=== PATIENT | male | born 1940 | race Asian ===

== ENCOUNTER 2017-05-04 11:45 | Emergency (ER) | payer OTHER ==
[2017-05-04 12:21] VITALS: BMI 21.7
--- NOTE | 2017-05-04 13:53 | PDOC ---
History of Present Illness - History of Present Illness Initial Comments: 05/04/17 14:01 The patient is a 76 year old male, with a significant past medical history of HTN, HLD, Pacemaker (Jan 2017), who presents to the emergency department with subjective fever, cough, and intermittent wheezing since yesterday. Patient reports that he went into cardiac arrest during stent placement in Jan 2017 and was subsequently given a pacemaker. He states that he noticed he was wheezing a lot yesterday so he was using a steam inhaler. He also noted chills and a fever but did not take his temperature. He called his PCP who referred him to the ER due to his cardiac history. He denies any recent headache or dizziness. He denies any recent nausea, vomit, diarrhea or constipation. He denies any recent chest pain. He denies any recent dysuria, frequency, urgency or hematuria. Allergies: NKA Past surgical history: Quadruple bypass (1994), Pacemaker (Jan 2017) Social History: Nonsmoker. Denies EtOH use and recreational drug use. Primary Care Physician: Yuly Huntley <Leslie Treadwell - Last Filed: 05/04/17 14:22> - General History Source: Patient Exam Limitations: No Limitations <Sheila Mccall - Last Filed: 05/04/17 20:04> - General Chief Complaint: Respiratory Stated Complaint: wheezing Time Seen by Provider: 05/04/17 13:30 Past History <Leslie Treadwell - Last Filed: 05/04/17 14:22> - Past Medical History Cardiac Disorders: Yes (pacemaker, bypass) COPD: No HTN: Yes Hypercholesterolemia: Yes - Surgical History Cardiac Surgery: Yes (pacemaker, bypass) - Immunization History Td Vaccination: Yes Immunization Up to Date: Yes - Suicide/Smoking/Psychosocial Hx Smoking Status: No Smoking History: Never smoked Years of Tobacco Use: 0 Number of Cigarettes Smoked Daily: 0 Cigars Per Day: 0 <Sheila Mccall - Last Filed: 05/04/17 20:04> - Past Medical History Allergies/Adverse Reactions: Allergies Allergy/AdvReac Type Severity Reaction Status Date / Time No Known Allergies Allergy Verified 05/04/17 12:15 Home Medications: Ambulatory Orders Aspirin 162 mg PO DAILY 01/29/13 Metoprolol Succinate [Toprol XL -] 25 mg PO DAILY 11/03/13 Simvastatin [Zocor -] 20 mg PO HS 01/29/13 Cefuroxime Axetil [Ceftin -] 500 mg PO BID #10 tablet 05/04/17 Review of Systems - Review of Systems Comments:: 05/04/17 14:01 CONSTITUTIONAL: Presen: subjective fever, chills Absent: no fatigue EYES: Absent: visual changes ENT: Present: rhinorrhea Absent: ear pain, no sore throat CARDIOVASCULAR: Absent: chest pain, no palpitations RESPIRATORY: Present: recent cough, recent wheezing Absent: no SOB GI: Absent: abdominal pain, no nausea, no vomiting, no constipation, no diarrhea GENITOURINARY: Absent: dysuria, no frequency, no hematuria MUSCULOSKELETAL: Absent: back pain, no arthralgia, no myalgia SKIN: Absent: rash <Leslie Treadwell - Last Filed: 05/04/17 14:22> *Physical Exam - Vital Signs Last Vital Signs Temp Pulse Resp BP Pulse Ox 98.4 F 60 20 148/61 99 05/04/17 12:16 05/04/17 12:16 05/04/17 12:16 05/04/17 12:16 05/04/17 12:16 - Physical Exam Comments: 05/04/17 14:03 GENERAL: Well-appearing, well-nourished. No apparent distress. HEENT: Normocephalic, atraumatic. PERRL, EOM intact.Mild errythematous pharynx. CARDIOVASCULAR: Normal S1, S2. Regular rate and rhythm. PULMONARY: Clear to auscultation bilaterally. ABDOMEN: Soft, non-distended, non-tender. EXTREMITIES: Normal ROM in all four extremities. No gross deformities. SKIN: Warm, dry. No rash NEUROLOGICAL: No focal neurological deficits. <Leslie Treadwell - Last Filed: 05/04/17 14:22> - Vital Signs Last Vital Signs Temp Pulse Resp BP Pulse Ox 98.4 F 60 20 148/61 99 05/04/17 12:16 05/04/17 12:16 05/04/17 12:16 05/04/17 12:16 05/04/17 12:16 <Sheila Mccall - Last Filed: 05/04/17 20:04> Heart Score/ECG Review - ECG Intrepretation Comment:: 05/04/17 14:21 Atrial-paced rhythm with prolonged AV conduction. Minimal voltage criteria for LVH, may be normal variant. Cannot rule out inferior infarct Vent rate. 60 bpm <Leslie Treadwell - Last Filed: 05/04/17 14:22> ED Treatment Course - LABORATORY CBC & Chemistry Diagram: 05/04/17 14:23 05/04/17 14:23 <Sheila Mccall - Last Filed: 05/04/17 20:04> Medical Decision Making - Medical Decision Making 05/04/17 14:28 A/P: Patient here for evaluation of wheezing since yesterday. Because of patient 's cardiac history was sent by Dr. Diallo. Patient's physical examination is benign Dr. Huntley was requesting influenza to be sent, BNP, CBC, CMP, EKG and cardiac enzymes, if troponin and BNP are negative Call Dr. Sharif Discuss DC. Patient transferred to main emergency department for higher level of care report to Dr. Garcia and Ghazal RN. 05/04/17 20:04 A portion of this note was documented by the scribe services under my direction. I reviewed the details of the note within reason, and agree with the documentation with the following case summary and management plan written by me. <Sheila Mccall - Last Filed: 05/04/17 20:04> *DC/Admit/Observation/Transfer - Attestations Scribe Attestion: 05/04/17 14:12 Documentation prepared by Leslie Treadwell, acting as medical information specialist for Sheila Mccall FNP. <Leslie Treadwell - Last Filed: 05/04/17 14:22> <Sheila Mccall - Last Filed: 05/04/17 20:04> Diagnosis at time of Disposition: URI (upper respiratory infection) - Discharge Dispostion Disposition: HOME - Prescriptions Prescriptions: Cefuroxime Axetil [Ceftin -] 500 mg PO BID #10 tablet - Referrals Referrals: Yuly Huntley MD [Primary Care Provider] - - Patient Instructions Printed Discharge Instructions: DI for Acute Bronchitis Additional Instructions: Take the antibiotics as prescribed. Follow up with Dr. Huntley within 48 hours for a re-evaluation. If you experience worsening cough, shortness of breath, chest pain, or any other concerning symptoms, return to the ER immediately. - Post Discharge Activity
[2017-05-04 14:37] LABS: BASO % 0.9 % (0-2.0); HEMATOCRIT 40.1 % (35.4-49); LYMPH % 34.2 % (8-40); MCH 29.6 pg (25.7-33.7); MCHC 32.4 g/dl (32.0-35.9); MEAN CELL VOLUME 91.6 fl (80-96); MEAN PLT VOLUME 11.2 fl (7.5-11.1); MONO % 10.8 % (3.8-10.2); NEUT % 52.1 % (42.8-82.8); PLATELET COUNT 130 K/MM3 (134-434); RBC 4.37 M/mm3 (4.00-5.60); RDW 13.8 % (11.9-15.9); WHITE BLOOD COUNT 5.5 K/mm3 (4.0-10.0)
[2017-05-04 15:06] LABS: ALBUMIN 4.2 g/dl (3.4-5.0); ANION GAP 10 (8-16); BILIRUBIN,TOTAL 0.5 mg/dL (0.2-1.0); BLOOD UREA NITROGEN 9 mg/dL (7-18); CALCIUM 9.4 mg/dL (8.5-10.1); CHLORIDE 98 mmol/L (98-107); CO2 26 mmol/L (21-32); CREATININE 0.7 mg/dL (0.7-1.3); GLUCOSE,RANDOM 92 mg/dL (74-106); SGPT/ALT 36 U/L (12-78); SODIUM 134 mmol/L (136-145); TOT PROT 8.4 g/dl (6.4-8.2)
[2017-05-04 15:07] LABS: ALK PHOS 72 U/L (45-117)
[2017-05-04 15:08] LABS: POTASSIUM 4.9 mmol/L (3.5-5.1); SGOT/AST 50 U/L (15-37)
[2017-05-04 16:06] LABS: N-TERMINAL BNP 167.77 pg/ml (5-450)
--- NOTE | 2017-05-04 16:29 | PDOC ---
*Physical Exam - Vital Signs Last Vital Signs Temp Pulse Resp BP Pulse Ox 98.4 F 60 20 148/61 99 05/04/17 12:16 05/04/17 12:16 05/04/17 12:16 05/04/17 12:16 05/04/17 12:16 - Physical Exam Comments: 05/04/17 16:29 "GENERAL: Awake, alert, and fully oriented, in no acute distress HEAD: No signs of trauma EYES: PERRLA, EOMI, sclera anicteric, conjunctiva clear ENT: Auricles normal inspection, hearing grossly normal, nares patent, oropharynx clear without exudates. Moist mucosa NECK: Nontender, no stepoffs, Normal ROM, supple, no lymphadenopathy, JVD, or masses LUNGS: Breath sounds equal, clear to auscultation bilaterally. No wheezes, and no crackles HEART: Regular rate and rhythm, normal S1 and S2, no murmurs, rubs or gallops ABDOMEN: Soft, nontender, normoactive bowel sounds. No guarding, no rebound. No masses EXTREMITIES: Normal range of motion, no edema. No clubbing or cyanosis. No cords, erythema, or tenderness NEUROLOGICAL: Cranial nerves II through XII intact. 5/5 strength and sensation in all extremities, Normal speech, normal gait SKIN: Warm, Dry, normal turgor, no rashes or lesions noted. " ED Treatment Course - LABORATORY CBC & Chemistry Diagram: 05/04/17 14:23 05/04/17 14:23 - ADDITIONAL ORDERS Additional order review: Laboratory Results 05/04/17 14:23 Sodium 134 L Potassium 4.9 D Chloride 98 Carbon Dioxide 26 Anion Gap 10 BUN 9 D Creatinine 0.7 Creat Clearance w eGFR > 60 Random Glucose 92 D Calcium 9.4 Total Bilirubin 0.5 D AST 50 H D ALT 36 Alkaline Phosphatase 72 D Total Protein 8.4 H Albumin 4.2 05/04/17 14:18 Influenza Types A,B Antigen ([facility]) - Final Nasopharyngeal Swab - Final 05/04/17 14:23 RBC 4.37 MCV 91.6 MCHC 32.4 RDW 13.8 MPV 11.2 H Neutrophils % 52.1 Lymphocytes % 34.2 Monocytes % 10.8 H D Eosinophils % 2.0 D Basophils % 0.9 Medical Decision Making - Medical Decision Making 02/06/18 16:29 76 M with cough, sent in by PCP for cardiac enzymes, flu swab, and CXR. - Labs wnl - Flu swab negative - CXR negative Troponin result still pending after >2 hours of being in lab. At this time, I called the outside laborer who confirmed that troponin is negative. Spoke with Dr. Huntley, who agrees with plan to discharge with course of ceftin. Will f/u with pt in office. Pt reassessed - states that he feels well. Lungs clear. Vitals normal. Pt clinically stable for DC. *DC/Admit/Observation/Transfer Diagnosis at time of Disposition: URI (upper respiratory infection) - Discharge Dispostion Disposition: HOME - Prescriptions Prescriptions: Cefuroxime Axetil [Ceftin -] 500 mg PO BID #10 tablet - Referrals Referrals: Yuly Huntley MD [Primary Care Provider] - - Patient Instructions Printed Discharge Instructions: DI for Acute Bronchitis Additional Instructions: Take the antibiotics as prescribed. Follow up with Dr. Huntley within 48 hours for a re-evaluation. If you experience worsening cough, shortness of breath, chest pain, or any other concerning symptoms, return to the ER immediately. - Post Discharge Activity - Attestations Physician Attestion: 05/04/17 16:33 I, Dr. Andrew Garcia MD, attest that this document has been prepared under my direction and personally reviewed by me in its entirety. I further attest, that it accurately reflects all work, treatment, procedures and medical decision -making performed by me.
[2017-05-04] MEDS ORDERED: CEFUROXIME AXETIL 500 MG TABLET PO ONE (16:35)
[2017-05-04 16:54] VITALS: BP 130/80; PULSE 82; TEMP 98.3
--- NOTE | 2017-05-04 17:32 | EKG ---
Test Reason : Blood Pressure : / mmHG Vent. Rate : 060 BPM Atrial Rate : 060 BPM P-R Int : 000 ms QRS Dur : 094 ms QT Int : 384 ms P-R-T Axes : 000 065 -60 degrees QTc Int : 384 ms Atrial-paced rhythm with prolonged AV conduction MINIMAL VOLTAGE CRITERIA FOR LVH, MAY BE NORMAL VARIANT CANNOT RULE OUT INFERIOR INFARCT , AGE UNDETERMINED ABNORMAL ECG WHEN COMPARED WITH ECG OF 29-JAN-2013 04:47, ELECTRONIC ATRIAL PACEMAKER HAS REPLACED SINUS RHYTHM T WAVE INVERSION NOW EVIDENT IN INFERIOR LEADS NONSPECIFIC T WAVE ABNORMALITY NOW EVIDENT IN LATERAL LEADS QT HAS SHORTENED Confirmed by Chele Benitez ([id number]) on 05/04/2017 5:32:31 PM Referred By: Confirmed By:Chele Benitez
== END 2017-05-04 16:54 | disposition home or self-care (01) ==
LOC: JER 11:45 → JERFT 11:45 → JER 16:54
DX: J06.9 Acute upper respiratory infection, unspecified (principal); I25.10 Atherosclerotic heart disease of native coronary artery without angina pectoris; I10 Essential (primary) hypertension; Z95.1 Presence of aortocoronary bypass graft; Z95.0 Presence of cardiac pacemaker; E78.00 Pure hypercholesterolemia, unspecified; Z86.74 Personal history of sudden cardiac arrest
CPT/HCPCS: 36415; 71046-TC-FY; 80053; 82550; 82553; 83880; 84484; 85025; 87804; 93005; 93010; 99283-25

== ENCOUNTER 2017-07-07 16:32 | Emergency (ER) | payer OTHER ==
[2017-07-07 17:03] VITALS: BP 141/61; PULSE 60; TEMP 98.3; BMI 21.7
--- NOTE | 2017-07-07 17:04 | PDOC ---
Rapid Medical Evaluation Chief Complaint: Shortness of Breath Time Seen by Provider: 07/07/17 16:58 Medical Evaluation: Allergies Allergy/AdvReac Type Severity Reaction Status Date / Time No Known Allergies Allergy Verified 07/07/17 16:57 07/07/17 16:58 I have performed a brief in-person evaluation of this patient. The patient presents with a chief complaint of: intermittent x "weeks" - chills , wheezing, SOB, some swelling of feet, had pacer PCP Audi, had labs done 2 days ago, low platelets, elevated ESR Pertinent physical exam findings: lungs ctab I have ordered the following: labs, ekg, cxr The patient will proceed to the ED for further evaluation. Discharge Disposition - Diagnosis SOB (shortness of breath) - Referrals - Patient Instructions - Post Discharge Activity
[2017-07-07 17:52] LABS: BASO % 0.7 % (0-2.0); EOS % 7.9 % (0-4.5); HEMATOCRIT 31.3 % (35.4-49); HEMOGLOBIN 10.6 GM/dL (11.7-16.9); LYMPH % 19.4 % (8-40); MCH 30.9 pg (25.7-33.7); MCHC 33.8 g/dl (32.0-35.9); MEAN CELL VOLUME 91.5 fl (80-96); MEAN PLT VOLUME 10.2 fl (7.5-11.1); MONO % 10.3 % (3.8-10.2); NEUT % 61.7 % (42.8-82.8); PLATELET COUNT 90 K/MM3 (134-434); RBC 3.42 M/mm3 (4.00-5.60); RDW 14.4 % (11.9-15.9); WHITE BLOOD COUNT 4.5 K/mm3 (4.0-10.0)
[2017-07-07 18:36] LABS: ALBUMIN 3.5 g/dl (3.4-5.0); ANION GAP 6 (8-16); BILIRUBIN,TOTAL 0.4 mg/dL (0.2-1.0); BLOOD UREA NITROGEN 8 mg/dL (7-18); CALCIUM 8.7 mg/dL (8.5-10.1); CHLORIDE 99 mmol/L (98-107); CO2 29 mmol/L (21-32); CREATININE 0.8 mg/dL (0.7-1.3); GLUCOSE,RANDOM 131 mg/dL (74-106); POTASSIUM 4.1 mmol/L (3.5-5.1); SGOT/AST 16 U/L (15-37); SGPT/ALT 29 U/L (12-78); SODIUM 134 mmol/L (136-145); TOT PROT 7.2 g/dl (6.4-8.2)
[2017-07-07 18:38] LABS: ALK PHOS 51 U/L (45-117)
--- NOTE | 2017-07-07 19:38 | PDOC ---
History of Present Illness - General History Source: Patient Exam Limitations: No Limitations - History of Present Illness Initial Comments: 07/07/17 19:48 The patient is a 76 year old male with a significant PMH of pacemaker (01/2017) , coronary bypass, HTN, hyperlipidemia who presents to the emergency department with shortness of breath and extremity swelling over the past several weeks. The patient report having several unspecified weeks of intermittent shortness of breath, dyspnea on exertion, and chills since he had his pacemaker placed. The patient denies fevers. The patient also reports his feet bilaterally and his right hand have been swollen over the past week. The patients family also notes they went to Dr. Hannon office 2 days ago for bloodwork for concern of the side effects of his Colchicine use for gout, and state Dr. Huntley noted low platelets at 77. The patient denies bleeding or bruising. The patient denies chest pain, headache and dizziness. Denies fever, nausea, vomit, diarrhea and constipation. Denies dysuria, frequency, urgency and hematuria. Allergies: NKA Past surgical history: Pacemaker placement (2016). Coronary bypass (1996). Social history: No reported cigarette, alcohol, or drug use. PCP: Dr. Huntley <Steven Wall - Last Filed: 07/07/17 19:48> - General History Source: Patient <BooRy - Last Filed: 07/28/17 19:35> - General Chief Complaint: Shortness of Breath Stated Complaint: RESPIRATORY Time Seen by Provider: 07/07/17 16:58 Past History <Steven Wall - Last Filed: 07/07/17 19:48> - Past Medical History Cardiac Disorders: Yes (pacemaker 02/05/2017, bypass) COPD: No HTN: Yes Hypercholesterolemia: Yes - Surgical History Cardiac Surgery: Yes (pacemaker, bypass 1996) - Immunization History Td Vaccination: Yes Immunization Up to Date: Yes - Suicide/Smoking/Psychosocial Hx Smoking Status: No Smoking History: Never smoked Years of Tobacco Use: 0 Have you smoked in the past 12 months: No Number of Cigarettes Smoked Daily: 0 Cigars Per Day: 0 Information on smoking cessation initiated: No Hx Alcohol Use: No Drug/Substance Use Hx: No Substance Use Type: None <Ry Haddad - Last Filed: 07/28/17 19:35> - Past Medical History Allergies/Adverse Reactions: Allergies Allergy/AdvReac Type Severity Reaction Status Date / Time No Known Allergies Allergy Verified 07/07/17 16:57 Home Medications: Ambulatory Orders Aspirin 162 mg PO DAILY 01/29/13 Metoprolol Succinate [Toprol XL -] 25 mg PO DAILY 01/29/13 Simvastatin [Zocor -] 20 mg PO HS 01/29/13 Cefuroxime Axetil [Ceftin -] 500 mg PO BID #10 tablet 05/04/17 Furosemide [Lasix] 20 mg PO DAILY #10 tablet 07/07/17 Review of Systems - Review of Systems Able to Perform ROS?: Yes Comments:: 07/07/17 19:48 CONSTITUTIONAL: (+) Chills. Absent: fever, diaphoresis, generalized weakness, malaise, loss of appetite HEENT: Absent: rhinorrhea, nasal congestion, throat pain, throat swelling, difficulty swallowing, mouth swelling, ear pain, eye pain, visual Changes CARDIOVASCULAR: Absent: chest pain, syncope, palpitations, irregular heart rate, lightheadedness , peripheral edema RESPIRATORY: (+) Shortness of breath. (+) Dyspnea on exertion. Absent: cough, orthopnea, wheezing, stridor, hemoptysis GASTROINTESTINAL: Absent: abdominal pain, abdominal distension, nausea, vomiting, diarrhea, constipation, melena, hematochezia GENITOURINARY: Absent: dysuria, frequency, urgency, hesitancy, hematuria, flank pain, genital pain MUSCULOSKELETAL: (+) Bilateral foot swelling. (+) Right hand swelling. Absent: myalgia, arthralgia. SKIN: Absent: rash, itching, pallor HEMATOLOGIC/IMMUNOLOGIC: Absent: easy bleeding, easy bruising, lymphadenopathy, frequent infections ENDOCRINE: Absent: unexplained weight gain, unexplained weight loss, heat intolerance, cold intolerance NEUROLOGIC: Absent: headache, focal weakness or paresthesias, dizziness, unsteady gait, seizure, mental status changes, bladder or bowel incontinence PSYCHIATRIC: Absent: anxiety, depression, suicidal or homicidal ideation, hallucinations. <Steven Wall - Last Filed: 07/07/17 19:48> *Physical Exam - Vital Signs Last Vital Signs Temp Pulse Resp BP Pulse Ox 98.3 F 60 16 141/61 100 07/07/17 17:00 07/07/17 17:00 07/07/17 17:00 07/07/17 17:00 07/07/17 17:00 - Physical Exam Comments: 07/07/17 19:49 GENERAL: Well developed, well nourished. Awake and alert. No acute distress. HEENT: Normocephalic, atraumatic. PERRLA, EOMI. No conjunctival pallor. Sclera are non- icteric. Moist mucous membranes. Oropharynx is clear. NECK: Supple. Full ROM. No JVD. Carotid pulses 2+ and symmetric, without bruits. No thyromegaly. No lymphadenopathy. CARDIOVASCULAR: Regular rate and rhythm. No murmurs, rubs, or gallops. Distal pulses are 2+ and symmetric. PULMONARY: No evidence of respiratory distress. Lungs clear to auscultation bilaterally. No wheezing, rales or rhonchi. ABDOMINAL: Soft. Non-tender. Non-distended. No rebound or guarding. No organomegaly. Normoactive bowel sounds. MUSCULOSKELETAL Normal range of motion at all joints. No bony deformities or tenderness. No CVA tenderness. EXTREMITIES: No cyanosis. No clubbing. No edema. No calf tenderness. SKIN: Warm and dry. Normal capillary refill. No rashes. No jaundice. NEUROLOGICAL: Alert, awake, appropriate. Cranial nerves 2-12 intact. No deficits to light touch and temperature in face, upper extremities and lower extremities. No motor deficits in the in face, upper extremities and lower extremities. Normoreflexic in the upper and lower extremities. Normal speech. Toes are downgoing bilaterally. Gait is normal without ataxia. PSYCHIATRIC: Cooperative. Good eye contact. Appropriate mood and affect. <Steven Wall - Last Filed: 07/07/17 19:48> - Vital Signs Last Vital Signs Temp Pulse Resp BP Pulse Ox 98.3 F 60 16 141/61 100 07/07/17 17:00 07/07/17 17:00 07/07/17 17:00 07/07/17 17:00 07/07/17 17:00 <Ry Haddad - Last Filed: 07/28/17 19:35> ED Treatment Course - LABORATORY CBC & Chemistry Diagram: 07/07/17 17:43 07/07/17 17:43 - ADDITIONAL ORDERS Additional order review: Laboratory Results 07/07/17 17:43 Sodium 134 L Potassium 4.1 Chloride 99 Carbon Dioxide 29 Anion Gap 6 L BUN 8 Creatinine 0.8 Creat Clearance w eGFR > 60 Random Glucose 131 H D Calcium 8.7 Total Bilirubin 0.4 AST 16 D ALT 29 Alkaline Phosphatase 51 D Creatine Kinase 81 Troponin I < 0.02 B-Natriuretic Peptide 1212.70 H Total Protein 7.2 Albumin 3.5 07/07/17 17:43 RBC 3.42 L D MCV 91.5 MCHC 33.8 RDW 14.4 MPV 10.2 Neutrophils % 61.7 Lymphocytes % 19.4 D Monocytes % 10.3 H Eosinophils % 7.9 H D Basophils % 0.7 <Steven Wall - Last Filed: 07/07/17 19:48> - LABORATORY CBC & Chemistry Diagram: 07/07/17 17:43 07/07/17 17:43 - ADDITIONAL ORDERS Additional order review: Laboratory Results 07/07/17 17:43 Sodium 134 L Potassium 4.1 Chloride 99 Carbon Dioxide 29 Anion Gap 6 L BUN 8 Creatinine 0.8 Creat Clearance w eGFR > 60 Random Glucose 131 H D Calcium 8.7 Total Bilirubin 0.4 AST 16 D ALT 29 Alkaline Phosphatase 51 D Creatine Kinase 81 Troponin I < 0.02 B-Natriuretic Peptide 1212.70 H Total Protein 7.2 Albumin 3.5 07/07/17 17:43 RBC 3.42 L D MCV 91.5 MCHC 33.8 RDW 14.4 MPV 10.2 Neutrophils % 61.7 Lymphocytes % 19.4 D Monocytes % 10.3 H Eosinophils % 7.9 H D Basophils % 0.7 <Ry Haddad - Last Filed: 07/28/17 19:35> Medical Decision Making - Medical Decision Making 07/28/17 19:35 Dr. Haddad: The scribe's documentation has been prepared under my direction and personally reviewed by me in its entirery. I confirm that the note above accurately reflects all work, treatment, procedures, and medical decision making performed by me. <Ry Haddad - Last Filed: 07/28/17 19:35> *DC/Admit/Observation/Transfer - Attestations Scribe Attestion: 07/07/17 19:49 Documentation prepared by Steven Wall, acting as medical doctor nuclear medicine for Ry Haddad DO. <Steven Wall - Last Filed: 07/07/17 19:48> - Discharge Dispostion Admit: No <Ry Haddad - Last Filed: 07/28/17 19:35> Diagnosis at time of Disposition: SOB (shortness of breath) CHF (congestive heart failure) Qualifiers: Heart failure type: other Qualified Code(s): I50.9 - Heart failure, unspecified - Discharge Dispostion Disposition: HOME Condition at time of disposition: Stable - Prescriptions Prescriptions: Furosemide [Lasix] 20 mg PO DAILY #10 tablet - Referrals Referrals: Yuly Huntley MD [Primary Care Provider] - - Patient Instructions Printed Discharge Instructions: DI for Heart Failure, Lifestyle Habits May Lower Lifetime Risk of Heart Failure in Men Additional Instructions: continue all medications as directed. Continue all medication until you see Dr. 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 Return if any problems - Post Discharge Activity
[2017-07-07] MEDS ORDERED: FUROSEMIDE 20 MG TABLET (FP) PO ONE (19:49)
[2017-07-07] MEDS ORDERED: FUROSEMIDE 40 MG TABLET (FP) ONE (19:58)
--- NOTE | 2017-07-08 15:55 | EKG ---
Test Reason : Blood Pressure : / mmHG Vent. Rate : 060 BPM Atrial Rate : 060 BPM P-R Int : 000 ms QRS Dur : 096 ms QT Int : 414 ms P-R-T Axes : 021 069 013 degrees QTc Int : 414 ms Atrial-paced rhythm with prolonged AV conduction ABNORMAL ECG WHEN COMPARED WITH ECG OF 04-MAY-2017 11:55, T WAVE INVERSION NO LONGER EVIDENT IN INFERIOR LEADS NONSPECIFIC T WAVE ABNORMALITY NO LONGER EVIDENT IN LATERAL LEADS Confirmed by NITISH BAUMAN MD ([id number]) on 07/08/2017 3:55:28 PM Referred By: Confirmed By:NITISH BAUMAN MD
--- NOTE | 2017-07-12 17:04 | EKG ---
Test Reason : Blood Pressure : / mmHG Vent. Rate : 060 BPM Atrial Rate : 060 BPM P-R Int : 274 ms QRS Dur : 100 ms QT Int : 414 ms P-R-T Axes : -03 063 035 degrees QTc Int : 414 ms Atrial-paced rhythm with prolonged AV conduction ABNORMAL ECG WHEN COMPARED WITH ECG OF 07-JUL-2017 17:03, NO SIGNIFICANT CHANGE WAS FOUND Confirmed by JAYDA IBARRA MD ([id number]) on 07/12/2017 5:03:41 PM Referred By: Confirmed By:JAYDA IBARRA MD
== END 2017-07-07 20:02 | disposition home or self-care (01) ==
LOC: JER 16:32
DX: R06.02 Shortness of breath (principal); I50.9 Heart failure, unspecified
CPT/HCPCS: 36415; 71046-TC-FY; 80053; 82550; 83880; 84484; 85025; 93005; 93010; 99281-25

== ENCOUNTER 2018-04-05 04:05 | Emergency (ER) | payer OTHER ==
--- NOTE | 2018-04-05 04:28 | PDOC ---
History of Present Illness - General Chief Complaint: Syncope/Near Syncope Stated Complaint: NEAR SYNCOPE Time Seen by Provider: 04/05/18 04:27 - History of Present Illness Initial Comments: 04/05/18 04:27 Mr. Ribeiro is a 77 yo male w/ pmh of pacemaker (01/2017 after cardiac arrest during procedure), coronary bypass, HTN, HLD, preDM who presents for evaluation of dizziness earlier this evening. Patient reports he woke up to use the restroom and became dizzy as he was standing urinating. Patient describes this as a lightheaded feeling. Patient then sat down and his family called 911. Symptoms have now resolved and patient feels like his normal self. Of note, Mr. Ribeiro also endorses a 2 day history of loose stool. The patient denies chest pain, shortness of breath, and headache. Denies fever, chills, nausea, vomit, and constipation. Denies dysuria, frequency, urgency and hematuria. Past History - Past Medical History Allergies/Adverse Reactions: Allergies Allergy/AdvReac Type Severity Reaction Status Date / Time No Known Allergies Allergy Verified 04/05/18 04:27 Home Medications: Ambulatory Orders Aspirin 81 mg PO DAILY 01/29/13 Metoprolol Succinate [Toprol XL -] 25 mg PO DAILY 01/29/13 Simvastatin [Zocor -] 20 mg PO HS 01/29/13 Furosemide [Lasix] 20 mg PO DAILY #10 tablet 07/07/17 Allopurinol [Zyloprim -] 100 mg PO DAILY 04/05/18 Levothyroxine [Synthroid -] 20 mcg PO DAILY 04/05/18 Losartan Potassium [Cozaar -] 50 mg PO DAILY 04/05/18 Cardiac Disorders: Yes (pacemaker 02/05/2017, bypass) COPD: No HTN: Yes Hypercholesterolemia: Yes - Surgical History Cardiac Surgery: Yes (pacemaker, bypass 1996) - Immunization History Td Vaccination: Yes Immunization Up to Date: Yes - Suicide/Smoking/Psychosocial Hx Smoking Status: No Smoking History: Never smoked Years of Tobacco Use: 0 Have you smoked in the past 12 months: No Number of Cigarettes Smoked Daily: 0 Cigars Per Day: 0 Hx Alcohol Use: No Drug/Substance Use Hx: No Substance Use Type: None Review of Systems - Review of Systems Comments:: 04/05/18 04:28 GENERAL/CONSTITUTIONAL: No fever or chills. No weakness. HEAD, EYES, EARS, NOSE AND THROAT: No change in vision. No ear pain or discharge. No sore throat. CARDIOVASCULAR: No chest pain or shortness of breath RESPIRATORY: No cough, wheezing, or hemoptysis. GASTROINTESTINAL: +Diarrhea as described. No nausea, vomiting, or constipation. GENITOURINARY: No dysuria, frequency, or change in urination. MUSCULOSKELETAL: No joint or muscle swelling or pain. No neck or back pain. SKIN: No rash NEUROLOGIC: +Lightheaded feeling earlier this evening as described. No headache , vertigo, loss of consciousness, or change in strength/sensation. ENDOCRINE: No increased thirst. No abnormal weight change HEMATOLOGIC/LYMPHATIC: No anemia, easy bleeding, or history of blood clots. ALLERGIC/IMMUNOLOGIC: No hives or skin allergy. *Physical Exam - Physical Exam Comments: 04/05/18 04:28 GENERAL: Awake, alert, and fully oriented, in no acute distress HEAD: No signs of trauma, normocephalic, atraumatic EYES: PERRLA, EOMI, sclera anicteric, conjunctiva clear ENT: Auricles normal inspection, hearing grossly normal, nares patent, oropharynx clear without exudates. Moist mucosa NECK: Normal ROM, supple, no lymphadenopathy, JVD, or masses LUNGS: No distress, speaks full sentences, clear to auscultation bilaterally HEART: Regular rate and rhythm, normal S1 and S2, no murmurs, rubs or gallops, peripheral pulses normal and equal bilaterally. ABDOMEN: Soft, nontender, normoactive bowel sounds. No guarding, no rebound. No masses EXTREMITIES: Normal inspection, Normal range of motion, no edema. No clubbing or cyanosis. NEUROLOGICAL: Cranial nerves II through XII grossly intact. Normal speech, normal gait, no focal sensorimotor deficits SKIN: Warm, Dry, normal turgor, no rashes or lesions noted. ED Treatment Course - LABORATORY CBC & Chemistry Diagram: 04/05/18 04:30 04/05/18 04:30 Medical Decision Making - Medical Decision Making 04/05/18 04:45 Mr. Ribeiro is a 77 yo male w/ pmh as described who presents for evaluation of dizziness suspicious for cardiac process vs. orthostatic hypotension vs. electrolyte abnormality. Will evaluate patient using cardiac labs, cbc/cmp, and EKG. 04/05/18 06:20 Labs grossly wnl as below. EKG normal. Patient currently pending repeat troponin at 0730. Concern for acute process low at this time. 04/05/18 06:[address] Calderon. [phone]. Patient signed out to Dr. Garcia for further evaluation. Laboratory Results - last 24 hr 04/05/18 04/05/18 04/05/18 04:30 04:30 04:30 WBC 5.3 RBC 4.02 Hgb 12.7 Hct 37.3 D MCV 92.7 MCH 31.6 MCHC 34.1 RDW 13.1 Plt Count 101 L MPV 11.4 H D Absolute Neuts (auto) 3.5 Neutrophils % 66.1 Lymphocytes % 23.8 D Monocytes % 6.8 Eosinophils % 2.1 Basophils % 1.2 Nucleated RBC % 0 Sodium 138 Potassium 3.9 Chloride 104 Carbon Dioxide 27 Anion Gap 6 L BUN 14 Creatinine 0.9 Creat Clearance w eGFR > 60 Random Glucose 143 H Calcium 8.5 Total Bilirubin 0.3 AST 26 ALT 26 Alkaline Phosphatase 50 Creatine Kinase 140 Cancelled Troponin I < 0.02 Cancelled Total Protein 7.1 Albumin 3.6 *DC/Admit/Observation/Transfer Diagnosis at time of Disposition: Dizziness - Discharge Dispostion Condition at time of disposition: Fair - Referrals Referrals: Tana Corona MD [Primary Care Provider] - - Patient Instructions Printed Discharge Instructions: DI for Syncope in Adults (Fainting) Additional Instructions: You were evaluated today in the ER for your dizziness. We evaluated you with EKG , Chest Xray, and cardiac labs. No concerning findings were found at this time. Please follow-up with primary care provider later this week for further evaluation. Return to ER if any further symptoms of dizziness, fever, chills, or other concerning symptoms. - Post Discharge Activity
[2018-04-05] MEDS ORDERED: SODIUM CHLORIDE 500 ML IV STA (04:36)
[2018-04-05 04:41] VITALS: PULSE 60; BMI 22.6
[2018-04-05 04:57] LABS: BASO % 1.2 % (0-2.0); EOS % 2.1 % (0-4.5); HEMATOCRIT 37.3 % (35.4-49); HEMOGLOBIN 12.7 GM/dL (11.7-16.9); LYMPH % 23.8 % (8-40); MCH 31.6 pg (25.7-33.7); MCHC 34.1 g/dl (32.0-35.9); MEAN CELL VOLUME 92.7 fl (80-96); MEAN PLT VOLUME 11.4 fl (7.5-11.1); MONO % 6.8 % (3.8-10.2); NEUT % 66.1 % (42.8-82.8); PLATELET COUNT 101 K/MM3 (134-434); RBC 4.02 M/mm3 (4.00-5.60); RDW 13.1 % (11.9-15.9); WHITE BLOOD COUNT 5.3 K/mm3 (4.0-10.0)
[2018-04-05 05:40] LABS: ALBUMIN 3.6 g/dl (3.4-5.0); ALK PHOS 50 U/L (45-117); ANION GAP 6 MMOL/L (8-16); BILIRUBIN,TOTAL 0.3 mg/dL (0.2-1); BLOOD UREA NITROGEN 14 mg/dL (7-18); CALCIUM 8.5 mg/dL (8.5-10.1); CHLORIDE 104 mmol/L (98-107); CO2 27 mmol/L (21-32); CREATININE 0.9 mg/dL (0.55-1.3); GLUCOSE,RANDOM 143 mg/dL (74-106); POTASSIUM 3.9 mmol/L (3.5-5.1); SGOT/AST 26 U/L (15-37); SGPT/ALT 26 U/L (13-61); SODIUM 138 mmol/L (136-145); TOT PROT 7.1 g/dl (6.4-8.2)
--- NOTE | 2018-04-05 06:58 | PDOC ---
*Physical Exam - Vital Signs Last Vital Signs Temp Pulse Resp BP Pulse Ox 98.1 F 60 18 145/84 98 04/05/18 04:05 04/05/18 04:05 04/05/18 04:05 04/05/18 04:05 04/05/18 04:05 - Physical Exam Comments: 04/05/18 08:05 General Appearance: Nourished. No Apparent Distress HEENT: No Pharyngeal Erythema, Tonsillar Exudate, Tonsillar Erythema Neck: No Cervical Lymphadenopathy Respiratory/Chest: Lungs Clear, Normal Breath Sounds. No Crackles, Rales, Rhonchi, Wheezing Cardiovascular: Regular Rhythm, Regular Rate. No Murmur, Gallops, Rubs Gastrointestinal/Abdominal: Normal Bowel Sounds, Soft. No Guarding, Rebound, Tenderness Musculoskeletal: No CVA Tenderness Extremity: Normal Capillary Refill Integumentary: Normal Color, Dry, Warm Neurologic: Fully Oriented, Alert, Normal Mood/Affect, Normal Response, ED Treatment Course - LABORATORY CBC & Chemistry Diagram: 04/05/18 04:30 04/05/18 04:30 - ADDITIONAL ORDERS Additional order review: Laboratory Results 04/05/18 04/05/18 04:30 04:30 Sodium 138 Potassium 3.9 Chloride 104 Carbon Dioxide 27 Anion Gap 6 L BUN 14 Creatinine 0.9 Creat Clearance w eGFR > 60 Random Glucose 143 H Calcium 8.5 Total Bilirubin 0.3 AST 26 ALT 26 Alkaline Phosphatase 50 Creatine Kinase Cancelled 140 Troponin I Cancelled < 0.02 Total Protein 7.1 Albumin 3.6 04/05/18 04:30 RBC 4.02 MCV 92.7 MCHC 34.1 RDW 13.1 MPV 11.4 H D Neutrophils % 66.1 Lymphocytes % 23.8 D Monocytes % 6.8 Eosinophils % 2.1 Basophils % 1.2 - Medications Given in the ED: ED Medications Discontinued Medications Generic Name Dose Route Start Last Admin Trade Name Freq PRN Reason Stop Dose Admin Sodium Chloride 500 mls @ 1,000 mls/hr 04/05/18 04:36 04/05/18 04:52 Normal Saline - IV 04/05/18 05:05 1,000 mls/hr ASDIR STA Administration Progress Note - Progress Note Progress Note: The patient is a 77 year old male who presents to the ED for evaluation following a pre-syncopal episode. The patient's lab results have been unremarkable thus far including initial troponin. The patient is pending a repeat troponin and discussion with the patient's certified alcohol counselor. Medical Decision Making - Medical Decision Making 04/05/18 10:26 We discussed the case with the patient's Clinical Research Technician who is agreeable with the plan and will follow up with the patient on 04/08/18 at 3:40pm. Second troponin us unremarkable. We are comfortable discharging the patient home with cardiology follow up. We discussed the results, plan, and return precautions with the patient who voiced understanding and is agreeable with the plan. *DC/Admit/Observation/Transfer Diagnosis at time of Disposition: Dizziness - Discharge Dispostion Disposition: HOME Condition at time of disposition: Stable - Referrals Referrals: Tana Corona MD [Primary Care Provider] - - Patient Instructions Printed Discharge Instructions: DI for Syncope in Adults (Fainting) Additional Instructions: You were evaluated today in the ER for your dizziness. We evaluated you with EKG , Chest Xray, and cardiac labs. No concerning findings were found at this time. Please follow-up with primary care provider later this week for further evaluation. Return to ER if any further symptoms of dizziness, fever, chills, or other concerning symptoms. You are to follow up with your Clinical Research Technician Dr. Calderon this Wednesday04/08/18 at 3 :40pm. - Post Discharge Activity
--- NOTE | 2018-04-05 06:58 | PDOC ---
Attending Attestation - Resident Resident Name: Michael Galvez - ED Attending Attestation I have performed the following: I have examined & evaluated the patient, The case was reviewed & discussed with the resident, I agree w/resident's findings & plan, Exceptions are as noted - HPI HPI: 04/05/18 06:54 77 M with h/o pacemaker (01/2017), coronary bypass, HTN, hyperlipidemia, presenting to ED with transient lightheadedness. Pt states that he woke up to urinate this morning. WHile he was urinating, pt began to feel lightheaded. He denies syncope. Denies CP/SOB/palpitations. Pt was assisted to bed by his and lied down with his legs elevated with subsequent return to baseline. Pt is now asymptomatic. PT denies recent illness. Denies F/C. Denies vomiting/ diarrhea. Pt states that he has not had much of an appetite but has been taking PO fluids. Pt currently states that he feels well, with no complaints. - Physicial Exam PE: 04/05/18 06:58 "GENERAL: Awake, alert, and fully oriented, in no acute distress. HEAD: No signs of trauma EYES: PERRLA, EOMI, sclera anicteric, conjunctiva clear ENT: Auricles normal inspection, hearing grossly normal, nares patent, oropharynx clear without exudates. Moist mucosa NECK: Nontender, no stepoffs, Normal ROM, supple, no lymphadenopathy, JVD, or masses LUNGS: Breath sounds equal, clear to auscultation bilaterally. No wheezes, and no crackles HEART: Regular rate and rhythm, normal S1 and S2, no murmurs, rubs or gallops ABDOMEN: Soft, nontender, normoactive bowel sounds. No guarding, no rebound. No masses EXTREMITIES: Normal range of motion, no edema. No clubbing or cyanosis. No cords, erythema, or tenderness NEUROLOGICAL: Cranial nerves II through XII intact. 5/5 strength and sensation in all extremities, Normal speech, normal gait, normal cerebellar function SKIN: Warm, Dry, normal turgor, no rashes or lesions noted. - Medical Decision Making 04/05/18 06:58 77 M with lightheadedness during urination, now resolved. Pt well appearing, HD stable, with unremarkable EKG. No evidence of arrhythmia. Pt likely had micturition pre-syncope that resolved with lying down. Will evaluate for ACS with serial trops. Clinically does not appear dehydrated but will give gentle IVF. - Labs, trop x2 - CXR, UA - IVF 04/05/18 07:00 Labs wnl CXR clear UA pending. Pt signed out to oncoming team, pending repeat troponin, UA, and re-evaluation. Phone number of pt's enrichment teacher in chart. Day team to discuss pt's disposition with him.
[2018-04-05 09:01] VITALS: BP 135/70; TEMP 97.4
--- NOTE | 2018-04-05 10:00 | EKG ---
Test Reason : Blood Pressure : / mmHG Vent. Rate : 060 BPM Atrial Rate : 061 BPM P-R Int : 000 ms QRS Dur : 100 ms QT Int : 426 ms P-R-T Axes : 000 034 049 degrees QTc Int : 426 ms Atrial-paced rhythm with prolonged AV conduction ABNORMAL ECG WHEN COMPARED WITH ECG OF 07-JUL-2017 17:51, NO SIGNIFICANT CHANGE WAS FOUND Confirmed by Gibran Urbano MD ([id number]) on 04/05/2018 9:59:53 AM Referred By: Confirmed By:Gibran Urbano MD
== END 2018-04-05 11:19 | disposition home or self-care (01) ==
LOC: JER 04:05
PROC: 3E0337Z Introduction of Electrolytic and Water Balance Substance into Peripheral Vein, Percutaneous Approach (ICD-10-PCS; principal; 2018-04-05)
DX: R55 Syncope and collapse (principal); I25.10 Atherosclerotic heart disease of native coronary artery without angina pectoris; I10 Essential (primary) hypertension; Z95.1 Presence of aortocoronary bypass graft; Z95.0 Presence of cardiac pacemaker; Z86.74 Personal history of sudden cardiac arrest; E78.5 Hyperlipidemia, unspecified
CPT/HCPCS: 36415; 71046-TC-FY; 80053; 82550; 84484; 85025; 93005; 93010; 99284-25; J7030

== ENCOUNTER 2019-05-03 16:24 | Inpatient (IN) | payer OTHER ==
[2019-05-03 16:46] VITALS: BMI 24.1
--- NOTE | 2019-05-03 16:47 | PDOC ---
Rapid Medical Evaluation Chief Complaint: Wound Time Seen by Provider: 05/03/19 16:44 Medical Evaluation: Allergies Allergy/AdvReac Type Severity Reaction Status Date / Time No Known Allergies Allergy Verified 05/03/19 16:42 05/03/19 16:44 Pt is here for admission for R foot infection sent by Dr. Richards. Denies fever. No hx of diabetes Exam: deferred to provider Orders: labs, IV insert, x-ray Pt to proceed to the ER for further evaluation Discharge Disposition - Diagnosis Wound, open, foot Qualifiers: Encounter type: initial encounter Laterality: right Qualified Code(s): S91.301A - Unspecified open wound, right foot, initial encounter - Referrals - Patient Instructions - Post Discharge Activity
[2019-05-03 17:41] LABS: BASO % 1.1 % (0-2.0); EOS % 3.6 % (0-4.5); HEMATOCRIT 39.1 % (35.4-49); HEMOGLOBIN 13.2 GM/dL (11.7-16.9); LYMPH % 36.8 % (8-40); MCH 31.6 pg (25.7-33.7); MCHC 33.8 g/dl (32.0-35.9); MEAN CELL VOLUME 93.6 fl (80-96); MEAN PLT VOLUME 11.6 fl (7.5-11.1); MONO % 8.3 % (3.8-10.2); NEUT % 50.2 % (42.8-82.8); PLATELET COUNT 119 K/MM3 (134-434); RBC 4.17 M/mm3 (4.00-5.60); WHITE BLOOD COUNT 6.1 K/mm3 (4.0-10.0)
[2019-05-03 17:50] LABS: INR 0.88 (0.83-1.09); PROTHROMBIN TIME (PATIENT) 10.4 SEC (9.7-13.0)
[2019-05-03 18:04] LABS: ALBUMIN 4.2 g/dl (3.4-5.0); BILIRUBIN,TOTAL 0.4 mg/dL (0.2-1); BLOOD UREA NITROGEN 14.2 mg/dL (7-18); CALCIUM 10.1 mg/dL (8.5-10.1); CREATININE 0.9 mg/dL (0.55-1.3)
--- NOTE | 2019-05-03 18:44 | PDOC ---
History of Present Illness - History of Present Illness Initial Comments: 05/03/19 18:57 78 y/o M hx of gout, HTN, HLD, pacemaker (after cardiac arrest ), coronary bypass graft, prediabetes presents the ER for possible cellulitis from cheese tester Dr. Richards,on his 4th right phalanx. He has had pain and swellling on that toe for the last week. He was sent to podiatry today by his pcp. Fluid was drained from his toe, per daughter at bedside there was some purulent fluid. He reporst being in 9/10 constant pain in his 4th toe, radiating into is distal metatarsal. He denies any fevers, chill, nausea, vomiting. PCP; Dr. Fajardo podiatry: dr richards 05/03/19 19:04 <Boby Choudhary - Last Filed: 05/24/19 12:38> <Esperanza Mao - Last Filed: 05/24/19 15:41> - General Stated Complaint: SENT BY DR SREEDHAR RICHARDS Time Seen by Provider: 05/03/19 16:44 Past History - Past Medical History Cardiac Disorders: Yes (pacemaker 02/05/2017, bypass) COPD: No HTN: Yes Hypercholesterolemia: Yes - Surgical History Cardiac Surgery: Yes (pacemaker, bypass 1996) - Immunization History Td Vaccination: Yes Immunization Up to Date: Yes - Psycho Social/Smoking Cessation Hx Smoking Status: No Smoking History: Former smoker Years of Tobacco Use: 0 Have you smoked in the past 12 months: No Number of Cigarettes Smoked Daily: 0 If you are a former smoker, when did you quit?: 1995 Cigars Per Day: 0 Information on smoking cessation initiated: No Hx Alcohol Use: No Drug/Substance Use Hx: No Substance Use Type: None <Boby Choudhary - Last Filed: 05/24/19 12:38> <Esperanza Mao - Last Filed: 05/24/19 15:41> - Past Medical History Allergies/Adverse Reactions: Allergies Allergy/AdvReac Type Severity Reaction Status Date / Time No Known Allergies Allergy Verified 05/03/19 16:42 Home Medications: Ambulatory Orders Cholecalciferol (Vitamin D3) [Vitamin D3] 2,500 unit PO DAILY 05/03/19 Dorzolamide HCl [Trusopt 2% -] 1 drop OU BID 05/03/19 Dorzolamide HCl/Timolol Maleat [Dorzolamide-Timolol Eye Drops] 1 drop OU BID 08/15 Furosemide [Lasix] 20 mg PO DAILY 05/03/19 Latanoprost 1 drop OU HS 05/03/19 Levothyroxine [Synthroid -] 25 mcg PO DAILY 05/03/19 Losartan Potassium 50 mg PO DAILY 05/03/19 Magnesium Oxide,Aspartate,Citr [Triple Magnesium Complex] 400 mg PO HS 05/03/19 Metformin HCl [Glucophage] 500 mg PO DAILY 05/03/19 [place] [facility]-3 Acid Ethyl Esters 1 gm PO BID 05/03/19 Ubidecarenone [Co Q-10] 200 mg PO DAILY 05/03/19 Mupirocin Cream [Bactroban 2% Cream -] 1 applic TP BID 05/04/19 [place] [facility]-3 Acid Ethyl Esters [Lovaza -] 1 gm PO BID 05/04/19 Alcohol Antiseptic Pads [Alcohol Swabs] 1 each TP DAILY #100 med..pad 05/09/19 Aspirin [ASA -] 81 mg PO DAILY #30 tab.chew 05/09/19 Atorvastatin Ca [Lipitor] 40 mg PO HS #30 tablet 05/09/19 Clindamycin [Cleocin -] 300 mg PO Q6H #16 capsule 05/09/19 Lancets/Blood Glucose Strips [Fora [id number] Strp-Lnct] 1 each MC DAILY # 50 combo..pkg 05/09/19 Metoprolol Succinate [Toprol XL -] 50 mg PO DAILY #30 tab.sr.24h 05/09/19 Nitroglycerin Sublingual [Nitrostat -] 0.4 mg SL Q4H PRN #42 tab 05/09/19 Pen Needle, Diabetic [Almyra] 1 each MC DAILY #50 dis.needle 05/09/19 Pregabalin [Lyrica -] 75 mg PO BID #30 capsule MDD 150 mg 05/09/19 Miscellaneous Medical Supply [Glucometer Device] 1 each SQ ASDIR #1 kit *Physical Exam - Vital Signs Last Vital Signs Temp Pulse Resp BP Pulse Ox 97.9 F 60 18 162/75 99 05/03/19 16:42 05/03/19 16:42 05/03/19 16:42 05/03/19 16:42 05/03/19 16:42 <Boby Choudhary - Last Filed: 05/24/19 12:38> - Vital Signs Last Vital Signs Temp Pulse Resp BP Pulse Ox 97.2 F L 60 18 154/68 99 05/09/19 18:00 05/09/19 18:00 05/09/19 18:00 05/09/19 18:00 05/09/19 09:00 <Esperanza Mao - Last Filed: 05/24/19 15:41> ED Treatment Course - LABORATORY CBC & Chemistry Diagram: 05/09/19 06:35 05/09/19 06:35 - ADDITIONAL ORDERS Additional order review: Laboratory Results 05/03/19 05/03/19 17:07 17:07 PT with INR 10.40 INR 0.88 Sodium 136 Potassium 4.0 Chloride 100 Carbon Dioxide 31 Anion Gap 5 L BUN 14.2 Creatinine 0.9 Est GFR (CKD-EPI)AfAm 93.16 Est GFR (CKD-EPI)NonAf 80.38 Random Glucose 123 H Calcium 10.1 Total Bilirubin 0.4 AST 22 ALT 36 Alkaline Phosphatase 50 Total Protein 8.0 Albumin 4.2 05/03/19 17:07 RBC 4.17 MCV 93.6 MCHC 33.8 RDW 13.0 MPV 11.6 H Neutrophils % 50.2 D Lymphocytes % 36.8 D Monocytes % 8.3 Eosinophils % 3.6 Basophils % 1.1 <Boby Choudhary - Last Filed: 05/24/19 12:38> - LABORATORY CBC & Chemistry Diagram: 05/09/19 06:35 05/09/19 06:35 - ADDITIONAL ORDERS Additional order review: 05/03/19 17:07 Blood Culture - Final Blood - Peripheral Venous NO GROWTH AFTER 5 DAYS INCUBATION 05/03/19 17:07 Blood Culture - Final Blood - Peripheral Venous NO GROWTH AFTER 5 DAYS INCUBATION 05/03/19 17:07 RBC 4.17 MCV 93.6 MCHC 33.8 RDW 13.0 MPV 11.6 H Neutrophils % 50.2 D Lymphocytes % 36.8 D Monocytes % 8.3 Eosinophils % 3.6 Basophils % 1.1 - Medications Given in the ED: ED Medications Discontinued Medications Generic Name Dose Route Start Last Admin Trade Name Juiceq PRN Reason Stop Dose Admin Acetaminophen 1,000 mg 05/04/19 09:51 05/04/19 10:29 Ofirmev Injection - IVPB 05/04/19 09:52 1,000 mg ONCE ONE Administration Acetaminophen 1,000 mg 05/05/19 14:55 05/06/19 01:25 Tylenol - PO 1,000 mg TID PRN Administration PAIN LEVEL 4 - 6 Acetaminophen 1,000 mg 05/07/19 15:35 05/08/19 17:45 Tylenol - PO 1,000 mg TID PRN Administration PAIN LEVEL 4 - 6 Acetaminophen/Codeine Phosphate 1 tab 05/06/19 16:35 05/06/19 16:41 Tylenol # 3 - PO 1 tab Q4H PRN Administration PAIN LEVEL 1-5 Allopurinol 100 mg 05/04/19 10:00 05/04/19 10:32 Zyloprim - PO Not Given DAILY ARIEL Aminophylline 75 mg 05/09/19 12:03 05/09/19 12:03 Aminophylline Injection - IVPUSH 05/09/19 12:04 75 mg ONCE ONE Administration Aminophylline 75 mg 05/09/19 12:30 05/09/19 12:05 Aminophylline Injection - IVPUSH 05/09/19 12:31 75 mg ONCE ONE Administration Aspirin 81 mg 05/04/19 10:00 05/07/19 09:18 Asa - PO 81 mg DAILY ARIEL Administration Aspirin 325 mg 05/07/19 13:57 05/07/19 14:06 Asa - PO 05/07/19 13:58 325 mg ONCE ONE Administration Aspirin 81 mg 05/08/19 10:00 05/09/19 14:09 Asa - PO 81 mg DAILY ARIEL Administration Aspirin 162 mg 05/08/19 01:28 05/08/19 01:34 Asa - PO 05/08/19 01:29 162 mg ONCE ONE Administration Atorvastatin Calcium 40 mg 05/03/19 22:00 05/06/19 21:46 Lipitor - PO 40 mg HS ARIEL Administration Atorvastatin Calcium 40 mg 05/07/19 22:00 05/09/19 21:06 Lipitor - PO 40 mg HS ARIEL Administration Bacitracin 1 applic 05/05/19 10:00 05/07/19 09:21 Bacitracin - TP 1 applic DAILY ARIEL Administration Bacitracin 1 applic 05/08/19 10:00 05/09/19 16:27 Bacitracin - TP 1 applic DAILY ARIEL Administration Calcium Carbonate 650 mg 05/07/19 01:20 05/07/19 04:18 Calcium Carbonate - PO 05/07/19 01:21 650 mg ONCE ONE Administration Cholecalciferol 2,500 unit 05/04/19 10:00 05/07/19 09:18 Vitamin D3 - PO 2,500 unit DAILY ARIEL Administration Cholecalciferol 2,500 unit 05/08/19 10:00 05/09/19 14:13 Vitamin D3 - PO 2,500 unit DAILY ARIEL Administration Clindamycin HCl 300 mg 05/05/19 09:00 05/07/19 12:00 Cleocin - PO 300 mg Q6HPO ARIEL Administration Clindamycin HCl 300 mg 05/07/19 18:00 05/09/19 17:29 Cleocin - PO 300 mg Q6HPO ARIEL Administration Colchicine 0.6 mg 05/04/19 10:30 05/04/19 11:03 Colcrys PO 05/04/19 10:31 0.6 mg ONCE ONE Administration Colchicine 1.2 mg 05/05/19 08:48 05/05/19 11:55 Colcrys PO 05/05/19 08:49 1.2 mg DAILY ONE Administration Docusate Sodium 100 mg 05/05/19 15:30 05/05/19 15:45 Colace - PO 05/05/19 15:31 100 mg ONCE ONE Administration Dorzolamide HCl 1 drop 05/03/19 22:00 05/07/19 09:22 Trusopt 2% OU 1 drop BID ARIEL Administration Dorzolamide HCl 1 drop 05/07/19 22:00 05/09/19 13:50 Trusopt 2% OU 1 drop BID ARIEL Administration Furosemide 20 mg 05/04/19 10:00 05/07/19 09:20 Lasix - PO 20 mg DAILY ARIEL Administration Furosemide 20 mg 05/08/19 10:00 05/09/19 14:10 Lasix - PO 20 mg DAILY ARIEL Administration Gabapentin 100 mg 05/03/19 22:00 05/06/19 10:06 Neurontin - PO 100 mg BID ARIEL Administration Heparin Sodium (Porcine) 5,000 unit 05/03/19 22:00 05/07/19 13:20 Heparin - SQ 5,000 unit TID ARIEL Administration Heparin Sodium (Porcine) 5,000 unit 05/07/19 22:00 05/09/19 14:08 Heparin - SQ 5,000 unit TID ARIEL Administration Piperacillin Sod/Tazobactam 50 mls @ 100 mls/hr 05/04/19 02:00 05/04/19 13:22 Sod 3.375 gm/ Dextrose IVPB Not Given Q8H-IV ARIEL Protocol Piperacillin Sod/Tazobactam 50 mls @ 100 mls/hr 05/04/19 02:00 05/04/19 10:32 Sod 3.375 gm/ Dextrose IVPB 05/04/19 18:29 Not Given Q8H-IV ARIEL Clindamycin Phosphate 300 mg in 50 mls @ 100 mls/hr 05/04/19 10:45 05/05/19 09:17 Cleocin 300 Mg Premix Ivpb IVPB 100 mls/hr Q6H-IV ARIEL Administration Protocol Sodium Chloride 250 mls @ 250 mls/hr 05/09/19 12:30 05/09/19 12:05 Normal Saline - IV 05/09/19 13:29 250 mls/hr ONCE ONE Administration Ibuprofen 800 mg 05/04/19 13:37 05/04/19 15:40 Motrin - PO 05/04/19 13:38 800 mg ONCE ONE Administration Insulin Aspart 1 vial 05/03/19 22:00 05/07/19 11:03 Novolog Vial Sliding Scale - SQ Not Given [facility] Protocol Insulin Aspart 1 vial 05/07/19 16:30 05/09/19 17:28 Novolog Vial Sliding Scale - SQ Not Given [facility] Protocol Ketorolac Tromethamine 15 mg 05/03/19 19:27 05/03/19 19:15 Toradol Injection - IVPUSH 05/03/19 19:28 15 mg ONCE ONE Administration Ketorolac Tromethamine 15 mg 05/03/19 20:50 05/05/19 11:55 Toradol Injection - IVPUSH 05/08/19 20:49 15 mg Q6H PRN Administration PAIN LEVEL 6-10 Ketorolac Tromethamine 15 mg 05/06/19 21:26 05/06/19 21:46 Toradol Injection - IVPUSH 05/06/19 21:27 15 mg ONCE ONE Administration Latanoprost 1 drop 05/03/19 22:00 05/06/19 21:45 Xalatan 0.005% Eye Drops - OU 1 drop HS ARIEL Administration Latanoprost 1 drop 05/07/19 22:00 05/08/19 22:54 Xalatan 0.005% Eye Drops - OU 1 drop HS ARIEL Administration Levothyroxine Sodium 25 mcg 05/04/19 07:00 05/07/19 06:13 Synthroid - PO 25 mcg DAILY@0700 ARIEL Administration Levothyroxine Sodium 25 mcg 05/08/19 07:00 05/09/19 06:34 Synthroid - PO 25 mcg DAILY@0700 ARIEL Administration Losartan Potassium 50 mg 05/04/19 10:00 05/07/19 09:21 Cozaar - PO 50 mg DAILY ARIEL Administration Losartan Potassium 50 mg 05/08/19 10:00 05/09/19 14:10 Cozaar - PO 50 mg DAILY [facility] Administration Melatonin 5 mg 05/06/19 21:24 05/06/19 21:46 Melatonin PO 05/06/19 21:25 5 mg ONCE ONE Administration Metoprolol Succinate 25 mg 05/04/19 10:00 05/07/19 09:20 Toprol Xl - PO 25 mg DAILY ARIEL Administration Metoprolol Succinate 25 mg 05/08/19 10:00 05/08/19 09:57 Toprol Xl - PO 25 mg DAILY ARIEL Administration Metoprolol Succinate 50 mg 05/08/19 13:43 05/08/19 22:51 Toprol Xl - PO 50 mg DAILY ARIEL Administration Metoprolol Succinate 50 mg 05/08/19 22:00 05/09/19 14:09 Toprol Xl - PO 50 mg DAILY [facility] Administration Nitroglycerin 0.4 mg 05/07/19 13:58 05/07/19 14:06 Nitrostat - SL 05/07/19 13:59 0.4 mg ONCE ONE Administration Nitroglycerin 0.4 mg 05/08/19 14:15 05/09/19 07:50 Nitrostat - SL 0.4 mg Q4H PRN Administration PAIN LEVEL 7 - 10 Nortriptyline HCl 10 mg 05/06/19 22:00 05/07/19 09:21 Pamelor - PO 10 mg BID ARIEL Administration Nortriptyline HCl 10 mg 05/07/19 22:00 05/09/19 21:06 Pamelor - PO 10 mg BID ARIEL Administration [id number] Ethyl Esters 1 gm 05/03/19 22:00 05/07/19 09:21 Lovaza - PO 1 gm BID ARIEL Administration [id number]-[id number] Ethyl Esters 1 gm 05/07/19 22:00 05/09/19 21:06 Lovaza - PO 1 gm BID ARIEL Administration Oxycodone HCl 5 mg 05/03/19 21:53 05/03/19 22:25 Roxicodone - PO 05/03/19 21:54 5 mg ONCE ONE Administration Oxycodone/Acetaminophen 1 combo 05/03/19 19:27 05/03/19 19:15 Percocet 5/325 - PO 05/03/19 19:28 1 combo ONCE ONE Administration Pregabalin 50 mg 05/06/19 22:00 05/07/19 09:18 Lyrica - PO 50 mg BID ARIEL Administration Pregabalin 75 mg 05/07/19 22:00 05/08/19 02:04 Lyrica - PO Not Given BID ARIEL Pregabalin 75 mg 05/07/19 22:15 05/09/19 21:06 Lyrica - PO 75 mg BID ARIEL Administration Regadenoson 0.4 mg 05/09/19 10:15 05/09/19 12:01 Lexiscan IVPUSH 05/09/19 10:16 0.4 mg ONCE ONE Administration Timolol Maleate 1 drop 05/03/19 22:00 05/07/19 09:21 Timoptic 0.5% OU 1 drop BID ARIEL Administration Timolol Maleate 1 drop 05/07/19 22:00 05/09/19 13:51 Timoptic 0.5% OU 1 drop BID ARIEL Administration Tramadol HCl 25 mg 05/04/19 16:30 05/04/19 16:58 Ultram - PO 05/04/19 16:31 25 mg ONCE ONE Administration Tramadol HCl 50 mg 05/05/19 17:30 05/05/19 17:26 Ultram - PO 05/05/19 17:31 50 mg ONCE ONE Administration Vancomycin HCl 1,000 mg 05/03/19 19:26 05/03/19 20:15 Vancomycin (Pre-Docked) IVPB 05/03/19 19:27 1,000 mg ONCE ONE Administration Protocol <Esperanza Mao - Last Filed: 05/24/19 15:41> Medical Decision Making - Medical Decision Making 05/03/19 19:23 78 y/o M hx of gout, HTN, HLD, pacemaker (after cardiac arrest ), coronary bypass graft, prediabetes presents the ER for possible cellulitis Labs unremarkable x-rays of foot, no osteomyelitis 05/03/19 19:26 Pt had been on Keflex will give 1gm Vancomycin 05/03/19 19:29 Microblogged for admission <Boby Choudhary - Last Filed: 05/24/19 12:38> Discharge <Boby Choudhary - Last Filed: 05/24/19 12:38> - Discharge Information Problems reviewed: Yes - Admission Yes <Esperanza Mao - Last Filed: 05/24/19 15:41> - Discharge Information Clinical Impression/Diagnosis: Wound, open, foot Qualifiers: Encounter type: initial encounter Laterality: right Qualified Code(s): S91.301A - Unspecified open wound, right foot, initial encounter Condition: Good
[2019-05-03] MEDS ORDERED: KETOROLAC TROMETHAMINE 15 MG/ML VIAL ONE (19:14)
[2019-05-03] MEDS ORDERED: CEFAZOLIN 1 GM in DEXTROSE 5%-WATER - 50 ML IVPB ONE (19:21)
[2019-05-03] MEDS ORDERED: VANCOMYCIN 1 GM in D5W (PRE-DOCKED) 1,000 MG/250 ML IVPB ONE (19:26)
[2019-05-03] MEDS ORDERED: KETOROLAC TROMETHAMINE 15 MG/ML VIAL IVPUSH ONE (19:27)
[2019-05-03] MEDS ORDERED: BACITRACIN 0.9 GM PACKET ONE (19:27)
[2019-05-03 19:41] LABS: URIC ACID 5.2 mg/dL (2.6-7.2)
--- NOTE | 2019-05-03 19:50 | PDOC ---
Documentation entered by Matthias Oliva SCRIBE, acting as scribe for Esperanza Mao DO. Esperanza Mao DO: This documentation has been prepared by the Hazel evans Elijah, SCRIBE, under my direction and personally reviewed by me in its entirety. I confirm that the documentation accurately reflects all work, treatment, procedures, and medical decision making performed by me. Attending Attestation - Resident Resident Name: FunmiAbefarhan - ED Attending Attestation I have performed the following: I have examined & evaluated the patient, The case was reviewed & discussed with the resident, I agree w/resident's findings & plan - HPI HPI: 05/03/19 19:31 Patient is an 78 year old male with a significant pmh of pacemaker (01/2017), coronary bypass, HTN, hyperlipidemia who presents vis Podiatry today with an infection on his right fourth toe that has been present to the last few weeks. Patient was seen on Wednesday where the infectionwas drained and said to have drained mostly water and minimal plus. Over the course of the last x3 days he has been on Keflex which as per family have not helped his symptoms. Denies fever/chills. Allergies: NKA PCP: Dr. Fajardo Podiatry: Dr. Wright - Physicial Exam PE: 05/03/19 19:36 Constitutional: Awake, alert, oriented. No acute distress. Head: Normocephalic. Atraumatic Eyes: PERRL. EOMI. Conjunctivae are not pale. ENT: Mucous membranes are moist and intact. Posterior pharynx without exudates or erythema. Uvula midline. Neck: Supple. Full ROM. No lymphadenopathy. Cardiovascular: Regular rate. Regular rhythm. S1, S2 regular. Distal pulses are 2+ and symmetric. Pulmonary/Chest: No evidence of respiratory distress. Clear to auscultation bilaterally No wheezing, rales or rhonchi. Abdominal: Soft and non-distended. There is no tenderness. No rebound, guarding or rigidity. No organomegaly. No palpable masses. Good bowel sounds. Back: No CVA tenderness. Musculoskeletal: +Right 4th toe warmth, swollen, redness, to wound with tenderness to palpation. +Tenderness to palpation along 4th metatarsal Skin: Skin is warm and dry. No petechiae. No purpura. Neurological: Alert and oriented to person, place, and time. Cranial nerves II -XII are grossly intact. Normal speech. Strength is grossly symmetric. No sensory deficits. Psychiatric: Good eye contact. Normal interaction, affect and behavior. - Medical Decision Making 05/03/19 19:48 I, Dr. Esperanza Mao, DO, attest that this document has been prepared under my direction and personally reviewed by me in its entirety. I further attest, that it accurately reflects all work, treatment, procedures and medical decision -making performed by me. a/p: 78yo male sent by dr. Foster for admission for R 4th toe infection -labs and xrays performed by Denzel were reviewed -no elevated wbc, no fevers -has been on keflex since wednesday with worsening pain and no improvement -pt had the toe drained by PMD on Wednesday, purulent drainage per the family -pt states pain to the toe and podiatry concerned for osteomyelitis -will send labs, cultures, will start vanco -per fam, podiatry requested MRI foot to eval osteo- xray ordered by E does not show osteo -pt will need admission for wound that failed outpt therapy -pmd at [facility] -will give pain control 05/03/19 21:09 resident discussed the case with the admitting team who accepts pt to service Heart Score/ECG Review - ECG Intrepretation Comment:: 05/03/19 19:55 a paced at 78, no acute st/t wave findings
[2019-05-03] MEDS ORDERED: VANCOMYCIN 1 GRAM (PRE-DOCKED) 1,000 MG/250 ML BAG IVPB ONE (19:58)
[2019-05-03] MEDS ORDERED: ACETAMINOPHEN 325 MG TABLET (FP) PO PRN ×2 (20:37→20:51)
[2019-05-03] MEDS ORDERED: oxyCODONE HCL 5 MG TABLET PO ONE (21:53)
[2019-05-03] MEDS ORDERED: PATIENT'S OWN MEDICATION (NON-FORMULARY) (Dorzolamide Hcl/Timolol Maleat [Dorzolamide-Timo OU SCH (22:00)
[2019-05-03] MEDS ORDERED: oxyCODONE HCL 5 MG TABLET ONE (22:09)
[2019-05-03] MEDS ORDERED: ATORVASTATIN CA 40 MG TABLET (FP) ONE (22:09)
[2019-05-03] MEDS ORDERED: GABAPENTIN 100 MG CAPSULE ONE (22:10)
[2019-05-03] MEDS ORDERED: HEPARIN NA (PORCINE) 5,000 UNITS/ML 1ML VIAL ONE (22:10)
[2019-05-03] MEDS: GABAPENTIN 100 MG CAPSULE PO SCH (22:27)
[2019-05-03] MEDS: ATORVASTATIN CA 40 MG TABLET (FP) PO SCH (22:27)
[2019-05-03] MEDS: HEPARIN NA (PORCINE) 5,000 UNITS/ML 1ML VIAL SQ SCH (22:27)
[2019-05-03] MEDS: LATANOPROST 0.005% OPHTH SOLN 2.5ML BOTTLE OU SCH (22:30)
[2019-05-03] MEDS: TIMOLOL 0.5% OPHTHALMIC SOL 5 ML BOTTLE OU SCH (22:30)
[2019-05-03] MEDS: OMEGA-3 ACID ETHYL ESTERS (FATTY-ACIDS) 1 GM CAPSULE (FP) PO SCH (22:30)
[2019-05-03] MEDS: INSULIN SLIDING SCALE (NOVOLOG) 1 VIAL SQ SCH (23:25)
--- NOTE | 2019-05-04 01:46 | HP ---
CHIEF COMPLAINT: R 4th toe pain, swelling, erythema PCP: Dr. Fajardo HISTORY OF PRESENT ILLNESS: Arik Ribeiro is an 78 year old male with a past medical history of HTN, HLD, pacemaker (after cardiac arrest 02/12), corinary artery bypass graft, prediabetes, gout, hypothyroidism who presents with R 4th toe pain, swelling, erythema. Patient noted that he had hit his toe on some furniture about a month ago and has had pain in that toe since the trauma. Noted that the pain got worse about 2 weeks ago and started to develop some redness, swelling, and erythema. He believed that this might have been a gout exacerbation but was not in the usual location that it presents in. He noted that he was prescribed a 3 day course of prednisone by his PCP at this time with no alleviation of symptoms. The symptoms progressed until 2 days prior to admission when the patient went to the PCP and had the toe drained of fluid which the family describes as purulent; the fluid was not sent of for analysis and the patient was started on Keflex 500mg bid. The patient was then told to follow up with a mounter saxophones and went to Dr. Richards and he recommended the patient go to the ER for further evaluation. The patient states that he did not have any recent consumption of red meats, shellfish, alcoholic beverages and was taking his gout medications regularly. Notes that it is painful to walk on that foot, Denies any fevers, chills, headaches, dizziness, chest pain, shortness of breath , abdominal pain, n/v/c/d, numbness, tingling, focal weakness, dyrusia, hematuria, frequency, urgency. 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 Lives at home with family. Allergies No Known Allergies Allergy (Verified 05/03/19 16:42) HOME MEDICATIONS: Home Medications Medication Instructions Recorded Allopurinol [Zyloprim -] 100 mg PO DAILY 05/03/19 Aspirin [ASA -] 81 mg PO DAILY 05/03/19 Cholecalciferol (Vitamin D3) 2,500 unit PO DAILY 05/03/19 [Vitamin D3] Dorzolamide HCl [Trusopt 2%] 1 drop OU BID 05/03/19 Dorzolamide HCl/Timolol Maleat 1 drop OU BID 05/03/19 [Dorzolamide-Timolol Eye Drops] Furosemide [Lasix] 20 mg PO DAILY 05/03/19 Gabapentin 100 mg PO BID 05/03/19 Latanoprost 1 drop OU HS 05/03/19 Levothyroxine [Synthroid -] 25 mcg PO DAILY 05/03/19 Losartan Potassium 50 mg PO DAILY 05/03/19 Magnesium Oxide,Aspartate,Citr 400 mg PO HS 05/03/19 [Triple Magnesium Complex] Metformin HCl [Glucophage] 500 mg PO DAILY 05/03/19 Metoprolol Succinate 25 mg PO DAILY 05/03/19 [place]-3 Acid Ethyl Esters 1 gm PO BID 05/03/19 Propylene Glycol/Peg 400/Pf 1 drop OU AM 05/03/19 [Systane Ultra 0.4-0.3% Eye Drp] Simvastatin [Zocor] 80 mg PO HS 05/03/19 Ubidecarenone [Co Q-10] 200 mg PO DAILY 05/03/19 REVIEW OF SYSTEMS CONSTITUTIONAL: Absent: fever, chills, diaphoresis, generalized weakness, malaise, loss of appetite, weight change HEENT: Absent: rhinorrhea, nasal congestion, throat pain, throat swelling, difficulty swallowing, visual changes CARDIOVASCULAR: Absent: chest pain, syncope, palpitations, irregular heart rate, lightheadedness , peripheral edema RESPIRATORY: Absent: cough, shortness of breath, dyspnea with exertion, orthopnea, wheezing, stridor, hemoptysis GASTROINTESTINAL: Absent: abdominal pain, abdominal distension, nausea, vomiting, diarrhea, constipation, melena, hematochezia GENITOURINARY: Absent: dysuria, frequency, urgency, hesitancy, hematuria, flank pain MUSCULOSKELETAL: R 4th toe pain and swelling Absent: myalgia, arthralgia, back pain, neck pain SKIN: redness of the 4th toe and open lesion Absent: itching, pallor HEMATOLOGIC/IMMUNOLOGIC: Absent: easy bleeding, easy bruising, lymphadenopathy, frequent infections ENDOCRINE: Absent: unexplained weight gain, unexplained weight loss, heat intolerance, cold intolerance NEUROLOGIC: Absent: headache, focal weakness or paresthesias, dizziness, unsteady gait, seizure, mental status changes, bladder or bowel incontinence PSYCHIATRIC: Absent: anxiety, depression, suicidal or homicidal ideation, hallucinations. PHYSICAL EXAMINATION Vital Signs - 24 hr 05/03/19 05/03/19 16:42 20:15 Temperature 97.9 F 97.7 F Pulse Rate 60 Pulse Rate [ 68 Apical] Respiratory 18 18 Rate Blood Pressure 162/75 Blood Pressure 160/73 [Left Arm] O2 Sat by Pulse 99 100 Oximetry (%) GENERAL: Awake, alert, and fully oriented, in no acute distress. HEAD: Normal with no signs of trauma. EYES: Pupils equal, round and reactive to light, extraocular movements intact, sclera anicteric, conjunctiva clear. EARS, NOSE, THROAT: Oropharynx clear without exudates. Moist mucous membranes. NECK: Normal range of motion, supple without lymphadenopathy, JVD. LUNGS: Breath sounds equal, clear to auscultation bilaterally. No wheezes, and no crackles. No accessory muscle use. HEART: Regular rate and rhythm, normal S1 and S2 with prominent systolic ejection murmur. ABDOMEN: Soft, nontender, not distended, normoactive bowel sounds, no guarding, no rebound, no masses. MUSCULOSKELETAL: Normal range of motion at all joints. No bony deformities or tenderness. UPPER EXTREMITIES: 2+ pulses, warm, well-perfused. No cyanosis. No clubbing. No peripheral edema. LOWER EXTREMITIES: poorly palpated pulses, warm, well-perfused. No calf tenderness. No peripheral edema. NEUROLOGICAL: Cranial nerves II-XII intact. 5/5 muscle strength upper and lower extremities bilaterally. PSYCHIATRIC: Cooperative. Good eye contact. Appropriate mood and affect. SKIN: Noted open wound on the R 4th toe extending around the circumference of the toe. Tender to palpation and erythematous. Non-bloody, non-draining. No tracking deep underneath the skin surface. Laboratory Results - last 24 hr 05/03/19 05/03/19 05/03/19 17:07 17:07 17:07 WBC 6.1 RBC 4.17 Hgb 13.2 Hct 39.1 MCV 93.6 MCH 31.6 MCHC 33.8 RDW 13.0 Plt Count 119 L MPV 11.6 H Absolute Neuts (auto) 3.0 Neutrophils % 50.2 D Lymphocytes % 36.8 D Monocytes % 8.3 Eosinophils % 3.6 Basophils % 1.1 Nucleated RBC % 0 PT with INR 10.40 INR 0.88 Sodium 136 Potassium 4.0 Chloride 100 Carbon Dioxide 31 Anion Gap 5 L BUN 14.2 Creatinine 0.9 Est GFR (CKD-EPI)AfAm 93.16 Est GFR (CKD-EPI)NonAf 80.38 POC Glucometer Random Glucose 123 H Uric Acid 5.2 Calcium 10.1 Total Bilirubin 0.4 AST 22 ALT 36 Alkaline Phosphatase 50 Total Protein 8.0 Albumin 4.2 05/03/19 23:21 WBC RBC Hgb Hct MCV MCH MCHC RDW Plt Count MPV Absolute Neuts (auto) Neutrophils % Lymphocytes % Monocytes % Eosinophils % Basophils % Nucleated RBC % PT with INR INR Sodium Potassium Chloride Carbon Dioxide Anion Gap BUN Creatinine Est GFR (CKD-EPI)AfAm Est GFR (CKD-EPI)NonAf POC Glucometer 136 Random Glucose Uric Acid Calcium Total Bilirubin AST ALT Alkaline Phosphatase Total Protein Albumin EKG--> atrial paced rhythm, T wave inversion in III, QTc 408 ASSESSMENT/PLAN: Arik Ribeiro is an 78 year old male with a past medical history of HTN, HLD, pacemaker (after cardiac arrest 02/12), corinary artery bypass graft, prediabetes, gout, hypothyroidism admitted for cellulitis of the great toe. Cellulitis - no osteomyelitis as noted on the foot xray - has a history of hardware and pacemaker so will need clearance prior to MRI, family notes that he has not had an MRI since the screw was placed in his foot - had failed outpatient Keflex treament - continue Vancomycin and Zosyn for cellulitis - unlikely gout to location, difference in symptoms, normal uric acid, and history of trauma to the area - tylenol, toradol, and home gabapentin for pain - ID consulted - podiatry consulted - wound care consulted as patient also has history of PAD - check A1c - ESR/CRP Gout - continue home allopurinol HTN - continue home losartan and metoprolol HLD - continue home atorvastatin Hypothyrodism - continue home Synthroid - TSH DM - GLU here 123 - BGM - ISS - A1c DVT PPx - heparin 5000 units subq tid FEN - no standing fluids, encourage PO intake - continue to monitor electrolytes and replete as necessary - diabetic diet Dispo - admit to Med-surg Family Medical History Family History: Denies Visit type - Emergency Visit Emergency Visit: Yes ED Registration Date: 05/03/19 Care time: The patient presented to the Emergency Department on the above date and was hospitalized for further evaluation of their emergent condition. - New Patient This patient is new to me today: Yes Date on this admission: 05/04/19 - Critical Care Critical Care patient: No
[2019-05-04] MEDS: DORZOLAMIDE 2% HCL OPHTHALMIC SOLUTION 10 ML BOTTLE OU SCH ×3 (01:55→22:06)
[2019-05-04] MEDS ORDERED: PIPERACILLIN/TAZOB 3.375 GM 3.375 GM/50 ML BAG IVPB ONE ×2 (02:03→10:01)
[2019-05-04] MEDS: PIPERACILLIN/TAZOB 3.375 GM 3.375 GM in DEXTROSE 5%-WATER - 50 ML IVPB SCH ×3 (02:05→13:22)
--- NOTE | 2019-05-04 02:38 | PN ---
Teaching Attending Note Name of Resident: Doug Betancourt ATTENDING PHYSICIAN STATEMENT I saw and evaluated the patient. I reviewed the resident's note and discussed the case with the resident. I agree with the resident's findings and plan as documented. SUBJECTIVE: 78 year old male with Peripheral vascular disease claudication bilaterally, pacemaker (01/2017), coronary [id number] post left saphenous vein harvest, HTN, hyperlipidemia Sent in from podiatry clinic after there was some concern about infected right fourth toe which is been present over the last couple weeks status post trauma. This past 05/01/2019 there was allegedly a boil on right fourth toe which was popped by his PCP and drained, drain fluid was not sent for lab analysis at that time. Patient has been on Keflex since that time and his lesion has not improved and he was sent in for further evaluation. Denied any fevers, chills. OBJECTIVE: Last Vital Signs Temp Pulse Resp BP Pulse Ox 97.7 F 68 20 160/73 97 05/03/19 20:15 05/03/19 20:15 05/04/19 02:00 05/03/19 20:15 05/04/19 02:00 GENERAL: Well developed, well nourished. Awake and alert. No acute distress. HEENT: Normocephalic, atraumatic. PERRLA, EOMI. No conjunctival pallor. Sclera are non- icteric. Moist mucous membranes. Oropharynx is clear. NECK: Supple. Full ROM. No JVD. Carotid pulses 2+ and symmetric, without bruits. No thyromegaly. No lymphadenopathy. CARDIOVASCULAR: Regular rate and rhythm. No murmurs, rubs, or gallops. Distal pulses are 2+ and symmetric. PULMONARY: Chest with vertical scar status post CABG No evidence of respiratory distress. Lungs clear to auscultation bilaterally. No wheezing, rales or rhonchi. ABDOMINAL: Soft. Non-tender. Non-distended. No rebound or guarding. No organomegaly. Normoactive bowel sounds. MUSCULOSKELETAL Normal range of motion at all joints. No bony deformities or tenderness. No CVA tenderness. EXTREMITIES: Right fourth toedenuded skin, tender to touch, mild erythema, visible blister Bilateral lower extremities cool to touch, left leg status post saphenous vein harvest SKIN: Warm and dry. Normal capillary refill. No rashes. No jaundice. PSYCHIATRIC: Cooperative. Good eye contact. Appropriate mood and affect. Abnormal Lab Results 05/03/19 05/03/19 17:07 17:07 Plt Count 119 L MPV 11.6 H Anion Gap 5 L Random Glucose 123 H Imaging studies reviewed Right foot x-ray was taken and did not show any evidence of fracture or osteomyelitis ASSESSMENT AND PLAN: 78-year-old male with peripheral vascular disease with right fourth toe wound, nonhealing, no response to Keflex. Should rule out underlying osteomyelitis especially given patient's underlying peripheral vascular disease. Suspect possible subacute/chronic osteomyelitis. Would consider to do MRI of lower extremity as long as no contraindication as there may be screw in right lower extremity as long as pacemaker is MRI compatible. Also would consider bone biopsy for more accurate microbiological diagnosis. Check inflammation markers although paucity of elevation would not exclude osteomyelitis as they can be normal and chronic infection. Although right foot x-ray was negative for any evidence of osteomyelitis is not a very sensitive study and would not definitively rule out OM. Does not appear to be gout from physical examination is joint is not swollen, red or inflamed looking. Admit to [facility] Vancomycin, Zosyn Infectious disease consult Podiatry consult ESR, CRP Wound care Right lower extremity MRI if no contraindications Vascular consult for possible lower extremity revascularization as patient is complaining of bilateral claudication whenever he ambulates Statin #History of gout Continue with home dose [id number] mg p.o. daily #Hypothyroidism Continue with home dose levothyroxine 25 mcg p.o. daily Send TSH #Hypertension Continue with home dose Toprol, losartan, furosemide #DVT prophylaxisheparin subcutaneously
[2019-05-04] MEDS ORDERED: KETOROLAC TROMETHAMINE 15 MG/ML VIAL ONE ×2 (04:40→10:45)
[2019-05-04] MEDS: KETOROLAC TROMETHAMINE 15 MG/ML VIAL IVPUSH PRN ×3 (04:41→22:05)
[2019-05-04] MEDS ORDERED: HEPARIN NA (PORCINE) 5,000 UNITS/ML 1ML VIAL ONE (06:11)
[2019-05-04] MEDS ORDERED: LEVOTHYROXINE NA 25 MCG TABLET (FP) ONE (06:11)
[2019-05-04] MEDS: HEPARIN NA (PORCINE) 5,000 UNITS/ML 1ML VIAL SQ SCH ×3 (06:37→22:09)
[2019-05-04] MEDS: LEVOTHYROXINE NA 25 MCG TABLET (FP) PO SCH (06:39)
[2019-05-04] MEDS: INSULIN SLIDING SCALE (NOVOLOG) 1 VIAL SQ SCH ×4 (06:39→22:07)
[2019-05-04 06:52] LABS: BASO % 0.9 % (0-2.0); EOS % 2.8 % (0-4.5); HEMATOCRIT 34.3 % (35.4-49); HEMOGLOBIN 11.8 GM/dL (11.7-16.9); LYMPH % 34.2 % (8-40); MCH 31.5 pg (25.7-33.7); MCHC 34.3 g/dl (32.0-35.9); MEAN CELL VOLUME 91.8 fl (80-96); MEAN PLT VOLUME 11.1 fl (7.5-11.1); NEUT % 54.1 % (42.8-82.8); PLATELET COUNT 105 K/MM3 (134-434); RBC 3.73 M/mm3 (4.00-5.60); WHITE BLOOD COUNT 5.7 K/mm3 (4.0-10.0)
[2019-05-04 07:59] LABS: ANION GAP 7 MMOL/L (8-16); BLOOD UREA NITROGEN 18.8 mg/dL (7-18); CALCIUM 9.1 mg/dL (8.5-10.1); CHLORIDE 100 mmol/L (98-107); CO2 27 mmol/L (21-32); CREATININE 0.9 mg/dL (0.55-1.3); GLUCOSE,RANDOM 123 mg/dL (74-106); MAGNESIUM 2.1 mg/dL (1.8-2.4); POTASSIUM 4.1 mmol/L (3.5-5.1); SODIUM 133 mmol/L (136-145)
--- NOTE | 2019-05-04 08:58 | PN ---
Physical Exam: SUBJECTIVE: Patient seen and examined. Currently in moderate-severe toe pain. Waiting for consults. Pt is afebrile. denies f/c/n/v/d/sob, cp OBJECTIVE: Last Vital Signs Temp Pulse Resp BP Pulse Ox 97.2 F L 60 18 129/65 98 05/04/19 02:38 05/04/19 02:38 05/04/19 06:00 05/04/19 02:38 05/04/19 06:00 GENERAL: Awake, alert, and fully oriented, in no acute distress. EYES: Pupils equal, round and reactive to light, extraocular movements intact, sclera anicteric, conjunctiva clear. EARS, NOSE, THROAT: Oropharynx clear without exudates. Moist mucous membranes. NECK: Normal range of motion, supple without lymphadenopathy, JVD. LUNGS: Breath sounds equal, clear to auscultation bilaterally. No wheezes, and no crackles. No accessory muscle use. HEART: Regular rate and rhythm, normal S1 and S2 with prominent systolic ejection murmur. ABDOMEN: Soft, nontender, not distended, normoactive bowel sounds, no guarding, no rebound, no masses. LOWER EXTREMITIES: non-palpable pulses, warm, well-perfused. No calf tenderness. No peripheral edema. NEUROLOGICAL: Cranial nerves II-XII intact. 5/5 muscle strength upper and lower extremities bilaterally. SKIN: Noted open wound on the R 4th toe extending around the circumference of the toe. Tender to palpation and erythematous. Non-bloody, non-draining. No tracking deep underneath the skin surface. Laboratory Results - last 24 hr CBC,CMP WBC 5.7 K/mm3 (4.0-10.0) 05/04/19 05:40 RBC 3.73 M/mm3 (4.00-5.60) L 05/04/19 05:40 Hgb 11.8 GM/dL (11.7-16.9) 05/04/19 05:40 Hct 34.3 % (35.4-49) L 05/04/19 05:40 MCV 91.8 fl (80-96) 05/04/19 05:40 MCH 31.5 pg (25.7-33.7) 05/04/19 05:40 MCHC 34.3 g/dl (32.0-35.9) 05/04/19 05:40 RDW 13.0 % (11.9-15.9) 05/04/19 05:40 Plt Count 105 K/MM3 (134-434) L 05/04/19 05:40 MPV 11.1 fl (7.5-11.1) 05/04/19 05:40 Absolute Neuts (auto) 3.1 K/mm3 (1.5-8.0) 05/04/19 05:40 Neutrophils % 54.1 % (42.8-82.8) 05/04/19 05:40 Lymphocytes % 34.2 % (8-40) 05/04/19 05:40 Monocytes % 8.0 % (3.8-10.2) 05/04/19 05:40 Eosinophils % 2.8 % (0-4.5) 05/04/19 05:40 Basophils % 0.9 % (0-2.0) 05/04/19 05:40 Nucleated RBC % 0 % (0-0) 05/04/19 05:40 ESR 9 mm/hr (0-20) 05/04/19 05:40 Sodium 133 mmol/L (136-145) L 05/04/19 05:40 Potassium 4.1 mmol/L (3.5-5.1) 05/04/19 05:40 Chloride 100 mmol/L (98-107) 05/04/19 05:40 Carbon Dioxide 27 mmol/L (21-32) 05/04/19 05:40 Anion Gap 7 MMOL/L (8-16) L 05/04/19 05:40 BUN 18.8 mg/dL (7-18) H 05/04/19 05:40 Creatinine 0.9 mg/dL (0.55-1.3) 05/04/19 05:40 Est GFR (CKD-EPI)AfAm 93.16 05/04/19 05:40 Est GFR (CKD-EPI)NonAf 80.38 05/04/19 05:40 POC Glucometer 114 UNITS (80-120) 05/04/19 05:50 Random Glucose 123 mg/dL (74-106) H 05/04/19 05:40 Uric Acid 5.2 mg/dL (2.6-7.2) 05/03/19 17:07 Calcium 9.1 mg/dL (8.5-10.1) 05/04/19 05:40 Magnesium 2.1 mg/dL (1.8-2.4) 05/04/19 05:40 Total Bilirubin 0.4 mg/dL (0.2-1) 05/03/19 17:07 AST 22 U/L (15-37) 05/03/19 17:07 ALT 36 U/L (13-61) 05/03/19 17:07 Alkaline Phosphatase 50 U/L (45-117) 05/03/19 17:07 C-Reactive Protein < 0.3 MG/DL (0.00-0.3) 05/04/19 05:40 Total Protein 8.0 g/dl (6.4-8.2) 05/03/19 17:07 Albumin 4.2 g/dl (3.4-5.0) 05/03/19 17:07 TSH 6.13 uIU/ml (0.358-3.74) H 05/04/19 05:40 Active Medications Current Medications Acetaminophen (Tylenol -) 650 mg PO Q4H PRN PRN Reason: PAIN LEVEL 1-5 Allopurinol (Zyloprim -) 100 mg PO DAILY [facility] Aspirin (Asa -) 81 mg PO DAILY [facility] Atorvastatin Calcium (Lipitor -) 40 mg PO HS [facility] Last Admin: 05/03/19 22:27 Dose: 40 mg Cholecalciferol (Vitamin D3 -) 2,500 unit PO DAILY [facility] Dorzolamide HCl (Trusopt 2%) 1 drop OU BID [facility] Last Admin: 05/04/19 01:55 Dose: 1 drop Furosemide (Lasix -) 20 mg PO DAILY [facility] Gabapentin (Neurontin -) 100 mg PO BID [facility] Last Admin: 05/03/19 22:27 Dose: 100 mg Heparin Sodium (Porcine) (Heparin -) 5,000 unit SQ TID [facility] Last Admin: 05/04/19 06:37 Dose: 5,000 unit Piperacillin Sod/Tazobactam (Sod 3.375 gm/ Dextrose) 50 mls @ 100 mls/hr IVPB Q8H-IV [facility]; Protocol Piperacillin Sod/Tazobactam (Sod 3.375 gm/ Dextrose) 50 mls @ 100 mls/hr IVPB Q8H-IV [facility] Stop: 05/04/19 18:29 Last Admin: 05/04/19 02:05 Dose: 100 mls/hr Insulin Aspart (Novolog Vial Sliding Scale -) 1 vial SQ ACHS [facility]; Protocol Last Admin: 05/04/19 06:39 Dose: Not Given Ketorolac Tromethamine (Toradol Injection -) 15 mg IVPUSH Q6H PRN PRN Reason: PAIN LEVEL 6-10 Stop: 05/08/19 20:49 Last Admin: 05/04/19 04:41 Dose: 15 mg Latanoprost (Xalatan 0.005% Eye Drops -) 1 drop OU [facility] Last Admin: 05/03/19 22:30 Dose: 1 drop Levothyroxine Sodium (Synthroid -) 25 mcg PO DAILY@0700 [facility] Last Admin: 05/04/19 06:39 Dose: 25 mcg Losartan Potassium (Cozaar -) 50 mg PO DAILY [facility] Metoprolol Succinate (Toprol Xl -) 25 mg PO DAILY [facility] Plrak-5-Vhmt Ethyl Esters (Lovaza -) 1 gm PO BID [facility] Last Admin: 05/03/19 22:30 Dose: 1 gm Timolol Maleate (Timoptic 0.5%) 1 drop OU BID [facility] Last Admin: 05/03/19 22:30 Dose: 1 drop Home Medications Medication Instructions Recorded Allopurinol [Zyloprim -] 100 mg PO DAILY 05/03/19 Aspirin [ASA -] 81 mg PO DAILY 05/03/19 Cholecalciferol (Vitamin D3) 2,500 unit PO DAILY 05/03/19 [Vitamin D3] Dorzolamide HCl [Trusopt 2%] 1 drop OU BID 05/03/19 Dorzolamide HCl/Timolol Maleat 1 drop OU BID 05/03/19 [Dorzolamide-Timolol Eye Drops] Furosemide [Lasix] 20 mg PO DAILY 05/03/19 Gabapentin 100 mg PO BID 05/03/19 Latanoprost 1 drop OU HS 05/03/19 Levothyroxine [Synthroid -] 25 mcg PO DAILY 05/03/19 Losartan Potassium 50 mg PO DAILY 05/03/19 Magnesium Oxide,Aspartate,Citr 400 mg PO HS 05/03/19 [Triple Magnesium Complex] Metformin HCl [Glucophage] 500 mg PO DAILY 05/03/19 Metoprolol Succinate 25 mg PO DAILY 05/03/19 [place]-3 Acid Ethyl Esters 1 gm PO BID 05/03/19 Propylene Glycol/Peg 400/Pf 1 drop OU AM 05/03/19 [Systane Ultra 0.4-0.3% Eye Drp] Simvastatin [Zocor] 80 mg PO HS 05/03/19 Ubidecarenone [Co Q-10] 200 mg PO DAILY 05/03/19 ASSESSMENT/PLAN: 78 y/o male with a past medical history of HTN, HLD, pacemaker (after cardiac arrest 02/12), coronary artery bypass graft, prediabetes, gout, hypothyroidism admitted for cellulitis of the right toe #Cellulitis no osteomyelitis on x ray history of hardware and pacemaker No MRI needed failed outpatient Keflex treament Started on Clindamycin Pending ID consult tylenol 650 Q4, toradol Q6, and home gabapentin for pain Control pt's nociceptive pain adequately- started on Tramadol 25, if no improvement, titrate up to 50, if still no improvement consider morphine low dose #PAD podiatry consulted- pending wound care consulted as patient also has history of PAD- Discussed with PA, will likely need outpt f/u Arterial Duplex- significant atherosclerotic disease with 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 #Gout continue home allopurinol Colchicine given, unlikely to be gout #HTN home losartan and metoprolol #HLD continue home atorvastatin #Hypothyrodism continue home Synthroid TSH elevated #DM BGM ISS A1c- 7 #DVT PPx heparin sq FEN no standing fluids, encourage PO intake monitor lytes diabetic diet Dispo: f/u with podiatry and vascular recom, f/u ID recom, control pt's nociceptive pain Visit type - Emergency Visit Emergency Visit: Yes ED Registration Date: 05/03/19 Care time: The patient presented to the Emergency Department on the above date and was hospitalized for further evaluation of their emergent condition. - New Patient This patient is new to me today: Yes Date on this admission: 05/07/19 - Critical Care Critical Care patient: No - Discharge Referral Referred to [facility] Med P.C[facility] No ATTENDING PHYSICIAN STATEMENT I saw and evaluated the patient. I reviewed the resident's note and discussed the case with the resident. I agree with the resident's findings and plan as documented. SUBJECTIVE: OBJECTIVE: ASSESSMENT AND PLAN:
[2019-05-04] MEDS ORDERED: ACETAMINOPHEN 1000 MG/100 ML VIAL (NON FORMULARY) IVPB ONE (09:51)
[2019-05-04] MEDS ORDERED: ALLOPURINOL 100 MG TABLET (FP) PO SCH (10:00)
[2019-05-04] MEDS ORDERED: ACETAMINOPHEN INJECTION 100 ML IVPB ONE (10:02)
[2019-05-04] MEDS: GABAPENTIN 100 MG CAPSULE PO SCH ×2 (10:10→22:05)
[2019-05-04] MEDS: FUROSEMIDE 20 MG TABLET (FP) PO SCH (10:15)
[2019-05-04] MEDS: OMEGA-3 ACID ETHYL ESTERS (FATTY-ACIDS) 1 GM CAPSULE (FP) PO SCH ×2 (10:15→22:56)
[2019-05-04] MEDS: LOSARTAN POTASSIUM 50 MG TABLET (FP) PO SCH (10:15)
[2019-05-04] MEDS: metoPROLOL SUCCINATE 25 MG TAB.SR.24H (FP) PO SCH (10:15)
[2019-05-04] MEDS: CHOLECALCIFEROL (VIT D3) 1,000 UNIT (25 MCG) TABLET PO SCH (10:15)
[2019-05-04] MEDS: TIMOLOL 0.5% OPHTHALMIC SOL 5 ML BOTTLE OU SCH ×2 (10:15→22:06)
--- NOTE | 2019-05-04 10:23 | CONSULT ---
- Consultation REQUESTING PROVIDER: CONSULT REQUEST: We have been asked to surgically evaluate this patient for right 4th toe wound. PCP:Steven Nava MD HISTORY OF PRESENT ILLNESS: 78 year old male with a past medical history of HTN , HLD, pacemaker (after cardiac arrest 02/12), corinary artery bypass graft, prediabetes, gout, hypothyroidism who presented to the ED with R 4th toe pain, swelling, erythema. Patient noted that he had hit his toe on some furniture about a month ago and has had pain in that toe since the trauma. Noted that the pain got worse about 2 weeks ago and started to develop some redness, swelling, and erythema. He believed that this might have been a gout exacerbation but was not in the usual location that it presents in. He noted that he was prescribed a 3 day course of prednisone by his PCP at this time with no alleviation of symptoms. The symptoms progressed until 2 days prior to admission when the patient went to the PCP and had the toe drained of fluid which the family describes as purulent; the fluid was not sent of for analysis and the patient was started on Keflex 500mg bid. The patient was then told to follow up with a chief medical director and went to Dr. Richards and he recommended the patient go to the ER for further evaluation. The patient states that he did not have any recent consumption of red meats, shellfish, alcoholic beverages and was taking his gout medications regularly. Notes that it is painful to walk on that foot with 9 /10 constant pain. Denies any fevers, chills, headaches, dizziness, chest pain, shortness of breath , abdominal pain, n/v/c/d, numbness, tingling, focal weakness, PCP; Dr. Fajardo podiatry: Dr. Richards 05/03/19 19:04 Past History - Past Medical History as stated above Allergies/Adverse Reactions: Allergies Allergy/AdvReac Type Severity Reaction Status Date / Time No Known Allergies Allergy Verified 05/03/19 16:42 Home Medications: Ambulatory Orders Allopurinol [Zyloprim -] 100 mg PO DAILY 05/03/19 Aspirin [ASA -] 81 mg PO DAILY 05/03/19 Cholecalciferol (Vitamin D3) [Vitamin D3] 2,500 unit PO DAILY 05/03/19 Dorzolamide HCl [Trusopt 2%] 1 drop OU BID 05/03/19 Furosemide [Lasix] 20 mg PO DAILY 05/03/19 Gabapentin 100 mg PO DAILY 05/03/19 Latanoprost 1 drop OU HS 05/03/19 Levothyroxine [Synthroid -] 25 mcg PO DAILY 05/03/19 Losartan Potassium 50 mg PO DAILY 05/03/19 Magnesium Oxide,Aspartate,Citr [Triple Magnesium Complex] 400 mg PO HS 05/03/19 Metformin HCl [Glucophage] 500 mg PO DAILY 05/03/19 Metoprolol Succinate 25 mg PO DAILY 05/03/19 [place]-3 Acid Ethyl Esters 1 gm PO DAILY 05/03/19 Propylene Glycol/Peg 400/Pf [Systane Ultra 0.4-0.3% Eye Drp] 1 drop OU AM Simvastatin [Zocor] 80 mg PO HS 05/03/19 Ubidecarenone [Co Q-10] 200 mg PO DAILY 05/03/19 Cardiac Disorders: Yes (pacemaker 02/05/2017, bypass) COPD: No HTN: Yes Hypercholesterolemia: Yes - Surgical History Cardiac Surgery: Yes (pacemaker, bypass 1996) hernia repair, bunion in the R big toe, cataract surgery, cardiac stents - Immunization History Td Vaccination: Yes Immunization Up to Date: Yes - Psycho Social/Smoking Cessation Hx Smoking Status: No Smoking History: Former smoker Years of Tobacco Use: 0 Have you smoked in the past 12 months: No Number of Cigarettes Smoked Daily: 0 If you are a former smoker, when did you quit?: 1995 Cigars Per Day: 0 Information on smoking cessation initiated: No Hx Alcohol Use: No Drug/Substance Use Hx: No Substance Use Type: None Review of Systems CONSTITUTIONAL: Absent: fever, chills, diaphoresis, generalized weakness, malaise, weight change CARDIOVASCULAR: Absent: chest pain, syncope, palpitations, irregular heart rate, peripheral edema RESPIRATORY: Absent: cough, shortness of breath, dyspnea with exertion, GASTROINTESTINAL: Absent: abdominal pain, abdominal distension, nausea, vomiting, diarrhea GENITOURINARY: Absent: dysuria, frequency, urgency, hesitancy, MUSCULOSKELETAL: Absent: myalgia, arthralgia, joint swelling, back pain, neck pain SKIN: Absent: rash, itching, pallor HEMATOLOGIC/IMMUNOLOGIC: Absent: easy bleeding, easy bruising, lymphadenopathy NEUROLOGIC: Absent: headache, focal weakness, paresthesias, dizziness, unsteady gait, seizure, mental status changes, bladder or bowel incontinence PSYCHIATRIC: Absent: anxiety, depression, suicidal or homicidal ideation, hallucinations. PHYSICAL EXAM: Vital Signs Temp 97.2 F L 05/04/19 02:38 Pulse 60 05/04/19 02:38 Resp 18 05/04/19 06:00 BP 129/65 05/04/19 02:38 Pulse Ox 98 05/04/19 06:00 Intake & Output 05/03/19 05/03/19 05/04/19 11:59 23:59 11:59 Intake Total 60 50 Balance 60 50 Weight 145 lb Intake: IV 10 Saline Lock 10 IVPB 50 50 Other: Voiding Method Urinal Urinal Height 5 ft 5 in Body Mass Index (BMI) 24.1 Weight Measurement Method Est/Stated by Patient GENERAL: Awake, alert, and fully oriented, in no acute distress. HEAD: Normal with no signs of trauma. EYES: sclera anicteric, conjunctiva clear. LUNGS: Unlabored resp on RA, No accessory muscle use. MUSCULOSKELETAL: Moving all extremities without limitation. UPPER EXTREMITIES: warm, well perfused, No peripheral edema. LOWER EXTREMITIES: B/L LE compartments soft, supple and non-tender, with + signal at DP and PT on bedside doppler. legs and feet well perfused with no evidence of edema. Left LE with well healed scar at medial aspect of calf, Right 4th toe with erythema and edema. extending from MTP to DIP with skin sloughing and a small superficial wound over PIP with no active d/c or foul odor. Toe painful to palpation throughout with limited ROM 2/2 pain. NEUROLOGICAL: Normal speech, gait not observed. PSYCH: Cooperative. Good eye contact. Appropriate mood and affect. SKIN: Warm, dry, normal turgor, no rashes or lesions noted. CBC, BMP 05/04/19 05:40 Problem List - Problems (1) Toe infection Assessment/Plan: 78yo with right 4th toe infection and + signal on Doppler with no evidence for vascular intervention at this time. -Refer to podiatry for wound care and work up-r/o osteomyelitis -IV ABX -Bacitracin to right 4th toe -OOB as tolerated with assist- fall risk. -reconsult vascular surgery PRN. Evaluation and plan discussed with Dr Ponce. Code(s): L08.9 - LOCAL INFECTION OF THE SKIN AND SUBCUTANEOUS TISSUE, UNSP
[2019-05-04] MEDS ORDERED: CLINDAMYCIN 300 MG PREMIX IVPB 300 MG/50 ML BAG IVPB ONE (10:30)
[2019-05-04] MEDS ORDERED: COLCHICINE 0.6 MG CAP PO ONE (10:30)
[2019-05-04] MEDS ORDERED: COLCHICINE 0.6 MG CAP ONE (10:41)
[2019-05-04] MEDS ORDERED: ASPIRIN 81 MG CHEWABLE TABLETS ONE (10:41)
[2019-05-04] MEDS: ASPIRIN 81 MG CHEWABLE TABLETS PO SCH (10:45)
--- NOTE | 2019-05-04 12:46 | PN ---
Teaching Attending Note Name of Resident: Leo Cruz ATTENDING PHYSICIAN STATEMENT I saw and evaluated the patient. I reviewed the resident's note and discussed the case with the resident. I agree with the resident's findings and plan as documented. Seen and examined; please see resident note for further historical information. I personally verified all cordon historical information and exam findings. Personally interpreted all imaging and diagnostics and reviewed appropriate consults. I reviewed all labs and vital signs as per resident note and EMR as documented. I agree with the above assessment and plan unless supplemented by myself in the following. The wound was drained at the primary care office but the patient does not have any documented culture results, the family denies the cultures being taken at the primary care office. Furthermore, review of the patient's chart reveals that the patient has ongoing issues with gout. He was concerned that he was having a flare several weeks ago and continue to take his allopurinol during this time. This could have worsened the gout flare. There is no signs of worsening infection, no signs of osteomyelitis on the x-ray, no white count no fever and ESR is negative.He is [facility]. He apparently coded during this, it sounds like V. fib arrest, and he had a pacemaker inserted subsequently. This aborted the procedure. I have concerns that this could also be arterial ulcer 10 item review of systems completed and is negative aside from as discussed in the subjective data in my own/the resident documentation. VS, labs, imaging reviewed NAD, AAO, resting comfortably in bed. RRR s1/2 no mgr Normal muscle tone, moves all 5 extremities with normal apparent strength Neck is supple, trachea midline, no adama LN Lungs CTAB with sym expansion NT ND +BS no adama organomegaly CN2-12 wnl; no FND NC AT EOMI PERRLA Normal mood, appropriate behavior, euthymic affect No skin breakdown or rashes noted
[2019-05-04] MEDS ORDERED: IBUPROFEN 400 MG TABLET (FP) PO ONE ×2 (13:37→15:36)
[2019-05-04] MEDS: CLINDAMYCIN 300 MG PREMIX IVPB 300 MG/50 ML BAG IVPB SCH ×3 (14:00→22:56)
--- NOTE | 2019-05-04 14:12 | CON.ID ---
Consult Consult Specialty:: infectious diseases Referred by:: Reason for Consultation:: cellulitis of he leg - History of Present Illness Chief Complaint: pain in the leg and redness of the leg History of Present Illness: 78 year old male with a past medical history of HTN, HLD, pacemaker, coronary artery bypass graft, prediabetes, gout, hypothyroidism who presents with R 4th toe pain, swelling, erythema. Patient noted that he had hit his toe on some furniture about a month ago and has had pain in that toe since the trauma. Noted that the pain got worse about 2 weeks ago and started to develop some redness, swelling, and erythema. He believed that this might have been a gout exacerbation but was not in the usual location that it presents in. He noted that he was prescribed a 3 day course of prednisone by his PCP at this time with no alleviation of symptoms. The symptoms progressed until 2 days prior to admission when the patient went to the PCP and had the toe drained of fluid which the family describes as purulent; the fluid was not sent of for analysis and the patient was started on Keflex 500mg bid. The patient was then told to follow up with a gold leaf printer and went to Dr. Richards and he recommended the patient go to the ER for further evaluation. - History Source History Provided By: Patient Limitations to Obtaining History: No Limitations - Alcohol/Substance Use Hx Alcohol Use: No - Smoking History Smoking history: Former smoker Have you smoked in the past 12 months: No Aproximately how many cigarettes per day: 0 If you are a former smoker, when did you quit?: 1994 Home Medications - Allergies Allergies/Adverse Reactions: Allergies Allergy/AdvReac Type Severity Reaction Status Date / Time No Known Allergies Allergy Verified 05/03/19 16:42 - Home Medications Home Medications: Ambulatory Orders Cholecalciferol (Vitamin D3) [Vitamin D3] 2,500 unit PO DAILY 05/03/19 Dorzolamide HCl [Trusopt 2%] 1 drop OU BID 05/03/19 Dorzolamide HCl/Timolol Maleat [Dorzolamide-Timolol Eye Drops] 1 drop OU BID 08/15 Furosemide [Lasix] 20 mg PO DAILY 05/03/19 Gabapentin 100 mg PO BID 05/03/19 Latanoprost 1 drop OU HS 05/03/19 Levothyroxine [Synthroid -] 25 mcg PO DAILY 05/03/19 Losartan Potassium 50 mg PO DAILY 05/03/19 Magnesium Oxide,Aspartate,Citr [Triple Magnesium Complex] 400 mg PO HS 05/03/19 Metformin HCl [Glucophage] 500 mg PO DAILY 05/03/19 Metoprolol Succinate 25 mg PO DAILY 05/03/19 [place]-3 Acid Ethyl Esters 1 gm PO BID 05/03/19 Simvastatin [Zocor] 80 mg PO HS 05/03/19 Ubidecarenone [Co Q-10] 200 mg PO DAILY 05/03/19 Colchicine 0.6 mg PO BID 05/04/19 Mupirocin Cream [Bactroban 2% Cream -] 1 applic TP BID 05/04/19 [place]-3 Acid Ethyl Esters [Lovaza -] 1 gm PO BID 05/04/19 predniSONE [Deltasone -] 20 mg PO DAILY 05/04/19 Review of Systems - Review of Systems Constitutional: reports: No Symptoms Eyes: reports: No Symptoms HENT: reports: No Symptoms Neck: reports: No Symptoms Cardiovascular: reports: No Symptoms Respiratory: reports: No Symptoms Gastrointestinal: reports: No Symptoms Genitourinary: reports: No Symptoms Musculoskeletal: reports: No Symptoms Integumentary: reports: Wound (rt foot) Neurological: reports: No Symptoms Endocrine: reports: No Symptoms Hematology/Lymphatic: reports: No Symptoms Psychiatric: reports: No Symptoms Physical Exam Vital Signs: Vital Signs Temperature 97.8 F 05/04/19 07:30 Pulse Rate 60 05/04/19 10:00 Respiratory Rate 18 05/04/19 10:00 Blood Pressure 170/81 05/04/19 10:00 O2 Sat by Pulse Oximetry (%) 98 05/04/19 10:00 Constitutional: Yes: Well Nourished, Calm, Mild Distress Eyes: Yes: Conjunctiva Clear HENT: Yes: Atraumatic, Normocephalic Neck: Yes: Trachea Midline Cardiovascular: Yes: Regular Rate and Rhythm Respiratory: Yes: Regular, CTA Bilaterally Gastrointestinal: Yes: Normal Bowel Sounds, Soft Musculoskeletal: Yes: WNL Extremities: Yes: Erythema (rt foot), Other Wound/Incision: Yes: Dressing Removed, Other (rt foot open wound) Neurological: Yes: Alert, Oriented Psychiatric: Yes: Alert, Oriented Labs: CBC, BMP 05/04/19 05:40 05/04/19 05:40 Imaging - Results Chest X-ray: Report Reviewed, Image Reviewed X-ray: Report Reviewed, Image Reviewed Assessment/Plan 78 year old male with a past medical history of HTN, HLD, pacemaker (after cardiac arrest 02/12), corinary artery bypass graft, prediabetes, gout, hypothyroidism admitted for cellulitis of the great toe. Cellulitis Gout HTN HLD Hypothyrodism DM plan abx vascular to see the patient wound care rest as per the team
[2019-05-04 14:25] LABS: URIC ACID 5.2 mg/dL (2.6-7.2)
--- NOTE | 2019-05-04 14:28 | EKG ---
Test Reason : Blood Pressure : / mmHG Vent. Rate : 060 BPM Atrial Rate : 357 BPM P-R Int : 330 ms QRS Dur : 094 ms QT Int : 408 ms P-R-T Axes : 000 066 -31 degrees QTc Int : 408 ms Atrial-paced rhythm with prolonged AV conduction NONSPECIFIC T WAVE ABNORMALITY ABNORMAL ECG WHEN COMPARED WITH ECG OF 05-APR-2018 04:54, NONSPECIFIC T WAVE ABNORMALITY NOW EVIDENT IN INFERIOR LEADS Confirmed by MITUL ROWE, NITISH ([id number]) on 05/04/2019 2:28:33 PM Referred By: Confirmed By:NITISH BAUMAN MD
[2019-05-04] MEDS ORDERED: BACITRACIN 0.9 GM PACKET ONE (14:53)
[2019-05-04] MEDS ORDERED: CLINDAMYCIN 300 MG PREMIX IVPB 300 MG/50 ML BAG IVPB SCH (15:00)
[2019-05-04] MEDS ORDERED: traMADol HCL 50 MG TABLET PO ONE (16:30)
[2019-05-04] MEDS ORDERED: PT OWN MED DRAWER 7, Y5N ONE (16:49)
--- NOTE | 2019-05-04 18:12 | CONSULT ---
Consult Consult Specialty:: Podiatry Reason for Consultation:: wound 4th toe right - History of Present Illness Chief Complaint: Painful forefoot right seen in my office on Wednesday night and [facility] to [facility]. - History Source History Provided By: Patient, Family Member, Medical Record - Alcohol/Substance Use Hx Alcohol Use: No - Smoking History Smoking history: Former smoker Have you smoked in the past 12 months: No Aproximately how many cigarettes per day: 0 If you are a former smoker, when did you quit?: 1994 Home Medications - Allergies Allergies/Adverse Reactions: Allergies Allergy/AdvReac Type Severity Reaction Status Date / Time No Known Allergies Allergy Verified 05/03/19 16:42 - Home Medications Home Medications: Ambulatory Orders Cholecalciferol (Vitamin D3) [Vitamin D3] 2,500 unit PO DAILY 05/03/19 Dorzolamide HCl [Trusopt 2%] 1 drop OU BID 05/03/19 Dorzolamide HCl/Timolol Maleat [Dorzolamide-Timolol Eye Drops] 1 drop OU BID 08/15 Furosemide [Lasix] 20 mg PO DAILY 05/03/19 Gabapentin 100 mg PO BID 05/03/19 Latanoprost 1 drop OU HS 05/03/19 Levothyroxine [Synthroid -] 25 mcg PO DAILY 05/03/19 Losartan Potassium 50 mg PO DAILY 05/03/19 Magnesium Oxide,Aspartate,Citr [Triple Magnesium Complex] 400 mg PO HS 05/03/19 Metformin HCl [Glucophage] 500 mg PO DAILY 05/03/19 Metoprolol Succinate 25 mg PO DAILY 05/03/19 [place]-3 Acid Ethyl Esters 1 gm PO BID 05/03/19 Simvastatin [Zocor] 80 mg PO HS 05/03/19 Ubidecarenone [Co Q-10] 200 mg PO DAILY 05/03/19 Colchicine 0.6 mg PO BID 05/04/19 Mupirocin Cream [Bactroban 2% Cream -] 1 applic TP BID 05/04/19 [place]-3 Acid Ethyl Esters [Lovaza -] 1 gm PO BID 05/04/19 predniSONE [Deltasone -] 20 mg PO DAILY 05/04/19 Physical Exam Vital Signs: Vital Signs Temperature 97.8 F 05/04/19 07:30 Pulse Rate 60 05/04/19 15:23 Respiratory Rate 18 05/04/19 15:23 Blood Pressure 170/81 05/04/19 10:00 O2 Sat by Pulse Oximetry (%) 96 05/04/19 15:23 Extremities: Yes: Other (vs diminished, +grade 2-3 wound right 4th toe, +tender forefoot upon elevation,) Labs: CBC, BMP 05/04/19 05:40 05/04/19 05:40 Assessment/Plan ischemia right foot grade 2 wound 4th toe right Awaiting vascular recommendations. Betadine to 4th toe right. Will follow.
--- NOTE | 2019-05-04 18:19 | PN ---
Progress Note (short form) - Note Progress Note: [facility] Arik Ribeior is an 78 year old male with a past medical history of HTN, HLD, pacemaker (after cardiac arrest 02/12), corinary artery bypass graft, prediabetes, gout, hypothyroidism who presents with R 4th toe pain, swelling, erythema. Patient noted that he had hit his toe on some furniture about a month ago and has had pain in that toe since the trauma. Noted that the pain got worse about 2 weeks ago and started to develop some redness, swelling, and erythema. He believed that this might have been a gout exacerbation but was not in the usual location that it presents in. He noted that he was prescribed a 3 day course of prednisone by his PCP at this time with no alleviation of symptoms. The symptoms progressed until 2 days prior to admission when the patient went to the PCP and had the toe drained of fluid which the family describes as purulent; the fluid was not sent of for analysis and the patient was started on Keflex 500mg bid. The patient was then told to follow up with a pilot boat operator and went to Dr. Richards and he recommended the patient go to the ER for further evaluation. The patient states that he did not have any recent consumption of red meats, shellfish, alcoholic beverages and was taking his gout medications regularly. Notes that it is painful to walk on that foot, Denies any fevers, chills, headaches, dizziness, chest pain, shortness of breath , abdominal pain, n/v/c/d, numbness, tingling, focal weakness, dyrusia, hematuria, frequency, urgency. PE Right foot -- no palpable pulses. Dopplerable DP and PT pulse. Right 4th toe ulcer , for about a month. PE CTA ordered. Spoke to entire family at length. -- They will decide where they want the pt to have surgery -- [facility] vs [facility]. They will speak to [facility] surgeon. copy of pace maker card made to see if it is MRI compatible. Vinny Ponce DO
[2019-05-04] MEDS: ATORVASTATIN CA 40 MG TABLET (FP) PO SCH (22:05)
[2019-05-04] MEDS: LATANOPROST 0.005% OPHTH SOLN 2.5ML BOTTLE OU SCH (22:06)
[2019-05-05] MEDS ORDERED: PT OWN MED DRAWER 7, Y5N ONE ×3 (01:41→21:37)
[2019-05-05] MEDS: CLINDAMYCIN 300 MG PREMIX IVPB 300 MG/50 ML BAG IVPB SCH ×2 (03:29→09:17)
[2019-05-05] MEDS: KETOROLAC TROMETHAMINE 15 MG/ML VIAL IVPUSH PRN ×2 (04:04→11:55)
[2019-05-05] MEDS: INSULIN SLIDING SCALE (NOVOLOG) 1 VIAL SQ SCH ×4 (06:21→22:19)
[2019-05-05] MEDS: HEPARIN NA (PORCINE) 5,000 UNITS/ML 1ML VIAL SQ SCH ×3 (06:21→21:57)
[2019-05-05] MEDS: LEVOTHYROXINE NA 25 MCG TABLET (FP) PO SCH (06:21)
--- NOTE | 2019-05-05 07:51 | PN ---
Physical Exam: SUBJECTIVE: Patient seen and examined. Currently in moderate-severe toe pain. Waiting for consults. Pt is afebrile. denies f/c/n/v/d/sob, cp OBJECTIVE: Vital Signs Period Temp Pulse Resp BP Sys/Tillman Pulse Ox Last 24 Hr 97.7 F-98 F 59-60 18-20 123-170/68-81 96-98 GENERAL: Awake, alert, and fully oriented, in no acute distress. EYES: Pupils equal, round and reactive to light, extraocular movements intact, sclera anicteric, conjunctiva clear. EARS, NOSE, THROAT: Oropharynx clear without exudates. Moist mucous membranes. NECK: Normal range of motion, supple without lymphadenopathy, JVD. LUNGS: Breath sounds equal, clear to auscultation bilaterally. No wheezes, and no crackles. No accessory muscle use. HEART: Regular rate and rhythm, normal S1 and S2 with prominent systolic ejection murmur. ABDOMEN: Soft, nontender, not distended, normoactive bowel sounds, no guarding, no rebound, no masses. LOWER EXTREMITIES: non-palpable pulses, warm, well-perfused. No calf tenderness. No peripheral edema. NEUROLOGICAL: Cranial nerves II-XII intact. 5/5 muscle strength upper and lower extremities bilaterally. SKIN: Noted open wound on the R 4th toe extending around the circumference of the toe. Tender to palpation and erythematous. Non-bloody, non-draining. No tracking deep underneath the skin surface. Laboratory Results - last 24 hr CBC,CMP WBC 5.7 K/mm3 (4.0-10.0) 05/04/19 05:40 RBC 3.73 M/mm3 (4.00-5.60) L 05/04/19 05:40 Hgb 11.8 GM/dL (11.7-16.9) 05/04/19 05:40 Hct 34.3 % (35.4-49) L 05/04/19 05:40 MCV 91.8 fl (80-96) 05/04/19 05:40 MCH 31.5 pg (25.7-33.7) 05/04/19 05:40 MCHC 34.3 g/dl (32.0-35.9) 05/04/19 05:40 RDW 13.0 % (11.9-15.9) 05/04/19 05:40 Plt Count 105 K/MM3 (134-434) L 05/04/19 05:40 MPV 11.1 fl (7.5-11.1) 05/04/19 05:40 Absolute Neuts (auto) 3.1 K/mm3 (1.5-8.0) 05/04/19 05:40 Neutrophils % 54.1 % (42.8-82.8) 05/04/19 05:40 Lymphocytes % 34.2 % (8-40) 05/04/19 05:40 Monocytes % 8.0 % (3.8-10.2) 05/04/19 05:40 Eosinophils % 2.8 % (0-4.5) 05/04/19 05:40 Basophils % 0.9 % (0-2.0) 05/04/19 05:40 Nucleated RBC % 0 % (0-0) 05/04/19 05:40 ESR 9 mm/hr (0-20) 05/04/19 05:40 Sodium 133 mmol/L (136-145) L 05/04/19 05:40 Potassium 4.1 mmol/L (3.5-5.1) 05/04/19 05:40 Chloride 100 mmol/L (98-107) 05/04/19 05:40 Carbon Dioxide 27 mmol/L (21-32) 05/04/19 05:40 Anion Gap 7 MMOL/L (8-16) L 05/04/19 05:40 BUN 18.8 mg/dL (7-18) H 05/04/19 05:40 Creatinine 0.9 mg/dL (0.55-1.3) 05/04/19 05:40 Est GFR (CKD-EPI)AfAm 93.16 05/04/19 05:40 Est GFR (CKD-EPI)NonAf 80.38 05/04/19 05:40 POC Glucometer 117 UNITS (80-120) 05/05/19 06:02 Random Glucose 123 mg/dL (74-106) H 05/04/19 05:40 Hemoglobin A1c % 7.0 % (4.2-6.3) H 05/04/19 05:40 Uric Acid 5.2 mg/dL (2.6-7.2) 05/04/19 05:40 Calcium 9.1 mg/dL (8.5-10.1) 05/04/19 05:40 Magnesium 2.1 mg/dL (1.8-2.4) 05/04/19 05:40 Total Bilirubin 0.4 mg/dL (0.2-1) 05/03/19 17:07 AST 22 U/L (15-37) 05/03/19 17:07 ALT 36 U/L (13-61) 05/03/19 17:07 Alkaline Phosphatase 50 U/L (45-117) 05/03/19 17:07 C-Reactive Protein < 0.3 MG/DL (0.00-0.3) 05/04/19 05:40 Total Protein 8.0 g/dl (6.4-8.2) 05/03/19 17:07 Albumin 4.2 g/dl (3.4-5.0) 05/03/19 17:07 TSH 6.13 uIU/ml (0.358-3.74) H 05/04/19 05:40 Free T4 1.12 ng/dl (0.76-1.16) 05/04/19 05:40 Active Medications Generic Name Dose Route Start Last Admin Trade Name Freq PRN Reason Stop Dose Admin Acetaminophen 650 mg 05/03/19 20:51 Tylenol - PO Q4H PRN PAIN LEVEL 1-5 Aspirin 81 mg 05/04/19 10:00 05/04/19 10:45 Asa - PO 81 mg DAILY ARIEL Administration Atorvastatin Calcium 40 mg 05/03/19 22:00 05/04/19 22:05 Lipitor - PO 40 mg HS ARIEL Administration Bacitracin 1 applic 05/05/19 10:00 Bacitracin - TP DAILY AIREL Cholecalciferol 2,500 unit 05/04/19 10:00 05/04/19 10:15 Vitamin D3 - PO 2,500 unit DAILY ARIEL Administration Dorzolamide HCl 1 drop 05/03/19 22:00 05/04/19 22:06 Trusopt 2% OU 1 drop BID ARIEL Administration Furosemide 20 mg 05/04/19 10:00 05/04/19 10:15 Lasix - PO 20 mg DAILY ARIEL Administration Gabapentin 100 mg 05/03/19 22:00 05/04/19 22:05 Neurontin - PO 100 mg BID ARIEL Administration Heparin Sodium (Porcine) 5,000 unit 05/03/19 22:00 05/05/19 06:21 Heparin - SQ 5,000 unit TID ARIEL Administration Clindamycin Phosphate 300 mg in 50 mls @ 100 mls/hr 05/04/19 10:45 05/05/19 03:29 Cleocin 300 Mg Premix Ivpb IVPB 100 mls/hr Q6H-IV ARIEL Administration Protocol Insulin Aspart 1 vial 05/03/19 22:00 05/05/19 06:21 Novolog Vial Sliding Scale - SQ Not Given ACHS [facility] Protocol Ketorolac Tromethamine 15 mg 05/03/19 20:50 05/05/19 04:04 Toradol Injection - IVPUSH 05/08/19 20:49 15 mg Q6H PRN Administration PAIN LEVEL 6-10 Latanoprost 1 drop 05/03/19 22:00 05/04/19 22:06 Xalatan 0.005% Eye Drops - OU 1 drop HS ARIEL Administration Levothyroxine Sodium 25 mcg 05/04/19 07:00 05/05/19 06:21 Synthroid - PO 25 mcg DAILY@0700 ARIEL Administration Losartan Potassium 50 mg 05/04/19 10:00 05/04/19 10:15 Cozaar - PO 50 mg DAILY ARIEL Administration Metoprolol Succinate 25 mg 05/04/19 10:00 05/04/19 10:15 Toprol Xl - PO 25 mg DAILY ARIEL Administration Wyqjg-[id number] Ethyl Esters 1 gm 05/03/19 22:00 05/04/19 22:56 Lovaza - PO 1 gm BID ARIEL Administration Timolol Maleate 1 drop 05/03/19 22:00 05/04/19 22:06 Timoptic 0.5% OU 1 drop BID ARIEL Administration ASSESSMENT/PLAN: 78 y/o male with a past medical history of HTN, HLD, pacemaker (after cardiac arrest 02/12), coronary artery bypass graft, prediabetes, gout, hypothyroidism admitted for cellulitis of the Right 4th toe ulcer #Cellulitis- Right 4th toe ulcer no osteomyelitis on x ray history of hardware and pacemaker Pacemaker card under investigation to see if its MRI compatible Started on Clindamycin Pending ID consult tylenol 650 Q4, toradol Q6, and home gabapentin for pain Control pt's nociceptive pain adequately- started on Tramadol 25, if no improvement, titrate up to 50, if still no improvement consider morphine low dose As per cardio Continue ASA 81 qd, losartan 50 qd, Toprol XL 25 qd, Zocor 80 qhs #PAD podiatry consulted- pending Arterial Duplex- significant atherosclerotic disease with 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 Aorta w/ Run off CTA ordered As per Dr. Ponce- discussed with family the need for intervention, family to decide on where to have intervention, [facility] vs [facility]. #Gout continue home allopurinol #HTN home losartan and metoprolol #HLD continue home atorvastatin #Hypothyrodism continue home Synthroid TSH elevated #DM BGM ISS A1c- 7 #DVT PPx heparin sq FEN no standing fluids, encourage PO intake monitor lytes diabetic diet Dispo: f/u vascular recom, f/u ID recom, control pt's nociceptive pain, f/u with Family Visit type - Emergency Visit Emergency Visit: Yes ED Registration Date: 05/03/19 Care time: The patient presented to the Emergency Department on the above date and was hospitalized for further evaluation of their emergent condition. - New Patient This patient is new to me today: Yes Date on this admission: 05/05/19 - Critical Care Critical Care patient: No - Discharge Referral Referred to [facility] Med [facility].C.: No ATTENDING PHYSICIAN STATEMENT I saw and evaluated the patient. I reviewed the resident's note and discussed the case with the resident. I agree with the resident's findings and plan as documented. SUBJECTIVE: OBJECTIVE: ASSESSMENT AND PLAN:
[2019-05-05] MEDS ORDERED: COLCHICINE 0.6 MG CAP PO ONE (08:48)
[2019-05-05] MEDS ORDERED: CLINDAMYCIN HCL 300 MG CAPSULE PO SCH (09:00)
[2019-05-05 09:15] LABS: BASO % 1.2 % (0-2.0); EOS % 3.4 % (0-4.5); HEMATOCRIT 37.6 % (35.4-49); HEMOGLOBIN 12.9 GM/dL (11.7-16.9); LYMPH % 26.8 % (8-40); MCH 31.7 pg (25.7-33.7); MCHC 34.3 g/dl (32.0-35.9); MEAN CELL VOLUME 92.5 fl (80-96); MEAN PLT VOLUME 11.7 fl (7.5-11.1); MONO % 7.2 % (3.8-10.2); NEUT % 61.4 % (42.8-82.8); PLATELET COUNT 119 K/MM3 (134-434); RBC 4.07 M/mm3 (4.00-5.60); RDW 13.1 % (11.9-15.9); WHITE BLOOD COUNT 5.9 K/mm3 (4.0-10.0)
[2019-05-05] MEDS: CHOLECALCIFEROL (VIT D3) 1,000 UNIT (25 MCG) TABLET PO SCH (09:16)
[2019-05-05] MEDS: OMEGA-3 ACID ETHYL ESTERS (FATTY-ACIDS) 1 GM CAPSULE (FP) PO SCH ×2 (09:16→21:57)
[2019-05-05] MEDS: ASPIRIN 81 MG CHEWABLE TABLETS PO SCH (09:16)
[2019-05-05] MEDS: GABAPENTIN 100 MG CAPSULE PO SCH ×2 (09:16→21:57)
[2019-05-05] MEDS: metoPROLOL SUCCINATE 25 MG TAB.SR.24H (FP) PO SCH (09:17)
[2019-05-05] MEDS: FUROSEMIDE 20 MG TABLET (FP) PO SCH (09:17)
[2019-05-05] MEDS: LOSARTAN POTASSIUM 50 MG TABLET (FP) PO SCH (09:17)
[2019-05-05] MEDS: DORZOLAMIDE 2% HCL OPHTHALMIC SOLUTION 10 ML BOTTLE OU SCH ×2 (09:18→21:59)
[2019-05-05] MEDS: TIMOLOL 0.5% OPHTHALMIC SOL 5 ML BOTTLE OU SCH ×2 (09:18→21:59)
[2019-05-05 09:40] LABS: ALBUMIN 3.7 g/dl (3.4-5.0); BILIRUBIN,TOTAL 0.5 mg/dL (0.2-1); BLOOD UREA NITROGEN 16.7 mg/dL (7-18); CALCIUM 9.2 mg/dL (8.5-10.1); POTASSIUM 4.5 mmol/L (3.5-5.1); TOT PROT 7.4 g/dl (6.4-8.2)
[2019-05-05] MEDS: CLINDAMYCIN HCL 150 MG CAPSULE (FP) PO SCH ×2 (12:10→17:27)
[2019-05-05] MEDS: BACITRACIN 15 GM TUBE TOPICAL OINTMENT TP SCH (12:10)
--- NOTE | 2019-05-05 12:52 | PN ---
Progress Note, Physician History of Present Illness: stable no issues - Current Medication List Current Medications: Active Medications Acetaminophen (Tylenol -) 650 mg PO Q4H PRN PRN Reason: PAIN LEVEL 1-5 Aspirin (Asa -) 81 mg PO DAILY [facility] Last Admin: 05/05/19 09:16 Dose: 81 mg Atorvastatin Calcium (Lipitor -) 40 mg PO HS [facility] Last Admin: 05/04/19 22:05 Dose: 40 mg Bacitracin (Bacitracin -) 1 applic TP DAILY [facility] Last Admin: 05/05/19 12:10 Dose: 1 applic Cholecalciferol (Vitamin D3 -) 2,500 unit PO DAILY [facility] Last Admin: 05/05/19 09:16 Dose: 2,500 unit Clindamycin HCl (Cleocin -) 300 mg PO Q6HPO [facility] Last Admin: 05/05/19 12:10 Dose: 300 mg Dorzolamide HCl (Trusopt 2%) 1 drop OU BID [facility] Last Admin: 05/05/19 09:18 Dose: 1 drop Furosemide (Lasix -) 20 mg PO DAILY [facility] Last Admin: 05/05/19 09:17 Dose: 20 mg Gabapentin (Neurontin -) 100 mg PO BID [facility] Last Admin: 05/05/19 09:16 Dose: 100 mg Heparin Sodium (Porcine) (Heparin -) 5,000 unit SQ TID [facility] Last Admin: 05/05/19 06:21 Dose: 5,000 unit Insulin Aspart (Novolog Vial Sliding Scale -) [address] [facility]; Protocol Last Admin: 05/05/19 11:56 Dose: Not Given Ketorolac Tromethamine (Toradol Injection -) 15 mg IVPUSH Q6H PRN PRN Reason: PAIN LEVEL 6-10 Stop: 05/08/19 20:49 Last Admin: 05/05/19 11:55 Dose: 15 mg Latanoprost (Xalatan 0.005% Eye Drops -) 1 drop OU HS [facility] Last Admin: 05/04/19 22:06 Dose: 1 drop Levothyroxine Sodium (Synthroid -) 25 mcg PO DAILY@0700 [facility] Last Admin: 05/05/19 06:21 Dose: 25 mcg Losartan Potassium (Cozaar -) 50 mg PO DAILY [facility] Last Admin: 05/05/19 09:17 Dose: 50 mg Metoprolol Succinate (Toprol Xl -) 25 mg PO DAILY [facility] Last Admin: 05/05/19 09:17 Dose: 25 mg Pwzzr-4-Pqhr Ethyl Esters (Lovaza -) 1 gm PO BID [facility] Last Admin: 05/05/19 09:16 Dose: 1 gm Timolol Maleate (Timoptic 0.5%) 1 drop OU BID [facility] Last Admin: 05/05/19 09:18 Dose: 1 drop - Objective Vital Signs: Vital Signs Temperature 97.9 F 05/05/19 10:00 Pulse Rate 60 05/05/19 10:00 Respiratory Rate 05/05/19 10:00 Blood Pressure 164/76 05/05/19 10:00 O2 Sat by Pulse Oximetry (%) 98 05/05/19 09:00 Constitutional: Yes: No Distress, Calm Cardiovascular: Yes: S1, S2 Respiratory: Yes: Regular, CTA Bilaterally Gastrointestinal: Yes: Normal Bowel Sounds, Soft Musculoskeletal: Yes: WNL Extremities: Yes: Erythema, Other Neurological: Yes: Alert, Oriented Psychiatric: Yes: Alert, Oriented Labs: CBC, BMP 05/05/19 08:27 05/05/19 08:27 INR, PTT INR 0.88 (0.83-1.09) 05/03/19 17:07 Assessment/Plan 78 year old male with a past medical history of HTN, HLD, pacemaker (after cardiac arrest 02/12), corinary artery bypass graft, prediabetes, gout, hypothyroidism admitted for cellulitis of the great toe. Cellulitis Gout HTN HLD Hypothyrodism DM plan continue current mgmt await for imaging studies vascular on case podiatry team on case rest as per the team
[2019-05-05] MEDS: ACETAMINOPHEN 500 MG TABLET (FP) PO PRN (15:18)
[2019-05-05] MEDS ORDERED: DOCUSATE SODIUM 100 MG CAPSULE (FP) PO ONE (15:30)
[2019-05-05] MEDS ORDERED: INSULIN (NOVOLOG) ASPART 100 UNITS/ML 10ML VIAL ONE (16:28)
--- NOTE | 2019-05-05 16:35 | CON.CARD ---
Consult Consult Specialty:: Cardiology Referred by:: Hospitalist Medicine Reason for Consultation:: PAD - History of Present Illness Chief Complaint: Non-healing toe ulcer History of Present Illness: Arik Ribeiro is an 78 year old male with a past medical history of HTN, HLD, Type 2 DM, PAD 02/05/17 failed attempt to open left SFA complicated by asystolic sinus node arrest during perclose placement successful resuscitation and dual chamber PPM with and small troponin made, coronary artery bypass graft , gout, hypothyroidism who presents with R 4th toe pain, swelling, erythema. Patient noted that he had hit his toe on some furniture about a month ago and has had pain in that toe since the trauma. associated with redness, swelling, and erythema. He believed that this might have been a gout exacerbation but was not in the usual location that it presents in. He noted that he was prescribed a 3 day course of prednisone by his PCP at this time with no alleviation of symptoms. The symptoms progressed until 2 days prior to admission when the patient went to the PCP and had the toe drained of fluid which the family describes as purulent; the fluid was not sent of for analysis and the patient was started on Keflex 500mg bid. The patient was then told to follow up with a exhaust equipment operator and went to Dr. Richards and he recommended the patient go to the ER for further evaluation. The patient states that he did not have any recent consumption of red meats, shellfish, alcoholic beverages and was taking his gout medications regularly. Notes that it is painful to walk on that foot. Denies any fevers, chills, headaches, dizziness, chest pain, shortness of breath , abdominal pain, n/v/c/d, numbness, tingling, focal weakness, dyrusia, hematuria, frequency, urgency. He sees Dr. Calderon of [facility] for vascular last visit 02/10/2019. - History Source History Provided By: Patient Limitations to Obtaining History: No Limitations - Alcohol/Substance Use Hx Alcohol Use: No - Smoking History Smoking history: Former smoker Have you smoked in the past 12 months: No Aproximately how many cigarettes per day: 0 If you are a former smoker, when did you quit?: 1994 Home Medications - Allergies Allergies/Adverse Reactions: Allergies Allergy/AdvReac Type Severity Reaction Status Date / Time No Known Allergies Allergy Verified 05/03/19 16:42 - Home Medications Home Medications: Ambulatory Orders Cholecalciferol (Vitamin D3) [Vitamin D3] 2,500 unit PO DAILY 05/03/19 Dorzolamide HCl [Trusopt 2%] 1 drop OU BID 05/03/19 Dorzolamide HCl/Timolol Maleat [Dorzolamide-Timolol Eye Drops] 1 drop OU BID 08/15 Furosemide [Lasix] 20 mg PO DAILY 05/03/19 Gabapentin 100 mg PO BID 05/03/19 Latanoprost 1 drop OU HS 05/03/19 Levothyroxine [Synthroid -] 25 mcg PO DAILY 05/03/19 Losartan Potassium 50 mg PO DAILY 05/03/19 Magnesium Oxide,Aspartate,Citr [Triple Magnesium Complex] 400 mg PO HS 05/03/19 Metformin HCl [Glucophage] 500 mg PO DAILY 05/03/19 Metoprolol Succinate 25 mg PO DAILY 05/03/19 Mcneil-3 Acid Ethyl Esters 1 gm PO BID 05/03/19 Simvastatin [Zocor] 80 mg PO HS 05/03/19 Ubidecarenone [Co Q-10] 200 mg PO DAILY 05/03/19 Colchicine 0.6 mg PO BID 05/04/19 Mupirocin Cream [Bactroban 2% Cream -] 1 applic TP BID 05/04/19 Mcneil-3 Acid Ethyl Esters [Lovaza -] 1 gm PO BID 05/04/19 predniSONE [Deltasone -] 20 mg PO DAILY 05/04/19 Review of Systems - Review of Systems Musculoskeletal: reports: Extremity Pain (Toe pain) Vital Signs: Vital Signs Temperature 97.9 F 05/05/19 15:18 Pulse Rate 60 05/05/19 15:18 Respiratory Rate 20 05/05/19 15:18 Blood Pressure 165/74 05/05/19 15:18 O2 Sat by Pulse Oximetry (%) 98 05/05/19 09:00 Constitutional: Yes: No Distress, Calm, Thin Neck: Yes: Supple Respiratory: Yes: Regular, CTA Bilaterally Gastrointestinal: Yes: Normal Bowel Sounds, Soft Cardiovascular: Yes: Regular Rate and Rhythm JVD: No Carotid Bruit: No Heart Sounds: Yes: S1, S2 Edema: No - Other Data Labs, Other Data: CBC, BMP 05/05/19 08:27 05/05/19 08:27 INR, PTT INR 0.88 (0.83-1.09) 05/03/19 17:07 A-paced @ 60 nonspec T changes Ejection Fraction %: LVEF > or = 40 % Imaging - Results Chest X-ray: Report Reviewed (NAD) Cat Scan: Report Reviewed Problem List - Problems (1) PAD (peripheral artery disease) Code(s): I73.9 - PERIPHERAL VASCULAR DISEASE, UNSPECIFIED (2) CAD (coronary artery disease) Code(s): I25.10 - ATHSCL HEART DISEASE OF [place] CORONARY ARTERY W/O ANG PCTRS Qualifiers: Coronary Disease-Associated Artery/Lesion type: [place] artery [place] vs. transplanted heart: [place] heart Associated angina: without angina Qualified Code(s): I25.10 - Atherosclerotic heart disease of [place] coronary artery without angina pectoris (3) S/P CABG (coronary artery bypass graft) Code(s): Z95.1 - PRESENCE OF AORTOCORONARY BYPASS GRAFT (4) Hypertensive heart disease Code(s): I11.9 - HYPERTENSIVE HEART DISEASE WITHOUT HEART FAILURE Qualifiers: Heart failure presence: without heart failure Qualified Code(s): I11.9 - Hypertensive heart disease without heart failure (5) Hyperlipidemia associated with type 2 diabetes mellitus Code(s): E11.69 - TYPE 2 DIABETES MELLITUS WITH OTHER SPECIFIED COMPLICATION; E78.5 - HYPERLIPIDEMIA, UNSPECIFIED (6) Toe infection Code(s): L08.9 - LOCAL INFECTION OF THE SKIN AND SUBCUTANEOUS TISSUE, UNSP (7) Wound, open, foot Code(s): S91.309A - UNSPECIFIED OPEN WOUND, UNSPECIFIED FOOT, INITIAL ENCOUNTER Qualifiers: Encounter type: initial encounter Laterality: right Qualified Code(s): S91.301A - Unspecified open wound, right foot, initial encounter Assessment/Plan Vascular Duplex revealed severe arthrosclerotic disease with hemodynamically significant stenosis at the right and left popliteal artery 05/05/2019 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 1. 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 CAD s/p CABG, angina pectoris 4. HTN 5. Hyperlipidemia 6. Gout 7. Hypothyroidism 8. Type 2 DM P:1. Patient has been following with Dr. Calderon of [facility] and will reach out to him regarding reattempt at LE angiogram +/- intervention 2. Continue ASA 81 qd, losartan 50 qd, Toprol XL 25 qd, Zocor 80 qhs 3. Complete abx course per ID 4. Thank you for consultative opportunity
[2019-05-05] MEDS ORDERED: traMADol HCL 50 MG TABLET PO ONE (17:30)
--- NOTE | 2019-05-05 19:06 | PN ---
Progress Note (short form) - Note Progress Note: Vascular Surgery Pt seen and examined. Spoke to family about CTA results. Cardiology speaking to kane about setting up angiogram possibly there. Will be on stand by if family wants angiogram done here at [facility]. Vinny Ponce DO
[2019-05-05] MEDS: ATORVASTATIN CA 40 MG TABLET (FP) PO SCH (21:57)
[2019-05-05] MEDS: LATANOPROST 0.005% OPHTH SOLN 2.5ML BOTTLE OU SCH (21:58)
[2019-05-06] MEDS: CLINDAMYCIN HCL 150 MG CAPSULE (FP) PO SCH ×4 (00:11→17:42)
[2019-05-06] MEDS: ACETAMINOPHEN 500 MG TABLET (FP) PO PRN (01:25)
[2019-05-06] MEDS ORDERED: INSULIN (NOVOLOG) ASPART 100 UNITS/ML 10ML VIAL ONE (05:59)
[2019-05-06] MEDS: INSULIN SLIDING SCALE (NOVOLOG) 1 VIAL SQ SCH ×4 (06:23→22:19)
[2019-05-06] MEDS: HEPARIN NA (PORCINE) 5,000 UNITS/ML 1ML VIAL SQ SCH ×3 (06:24→21:47)
[2019-05-06] MEDS: LEVOTHYROXINE NA 25 MCG TABLET (FP) PO SCH (06:24)
--- NOTE | 2019-05-06 06:47 | PN ---
Teaching Attending Note Name of Resident: Leo Cruz ATTENDING PHYSICIAN STATEMENT I saw and evaluated the patient. I reviewed the resident's note and discussed the case with the resident. I agree with the resident's findings and plan as documented. Seen and examined; please see resident note for further historical information. I personally verified all [place] historical information and exam findings. Personally interpreted all imaging and diagnostics and reviewed appropriate consults. I reviewed all labs and vital signs as per resident note and EMR as documented. I agree with the above assessment and plan unless supplemented by myself in the following. 10 item review of systems completed and is negative aside from as discussed in the subjective data in my own/the resident documentation. VS, labs, imaging reviewed NAD, AAO, resting comfortably in bed. RRR s1/2 no mgr Normal muscle tone, moves all 5 extremities with normal apparent strength Neck is supple, trachea midline, no adama LN Lungs CTAB with sym expansion NT ND +BS no adama organomegaly CN2-12 wnl; no FND NC AT EOMI PERRLA Normal mood, appropriate behavior, euthymic affect No skin breakdown or rashes noted Vascular Duplex revealed severe arthrosclerotic disease with hemodynamically significant stenosis at the right and left popliteal artery 05/05/2019 Left SFA ECHO 04/15/18 Normal LV with mild LVH normal LV fxn EF 60-65%, normal RV size and fxn, mild GRACE mild (peak AV velocity 2.3m/s mean AV gradient 10.1 mmhg), mild MR, TR, TN. Assessment and plan: Cardiology will speak to the family regarding setting up transfer to [place] if this is desired versus keeping the patient here for angiogram due to the obstructive SFA lesions which likely are giving rise to the arterial ulcer. -Foot ulcer, likely 2/2 PAD with underlying gout. I doubt infection. -PAD with obstructing SFA lesions -S/P PPM; CV input noted. Mostly V paced. -Hx CAD s/p CABG, -HTN -Hyperlipidemia -Gout; 0.6 colchicine QD, APAP TID, PRN lyrica. -Hypothyroidism -Type 2 DM Full Code
--- NOTE | 2019-05-06 06:47 | PN ---
Physical Exam: SUBJECTIVE: Patient seen and examined; no new complaints. Discussing with cardiology family regarding potential transfer. Patient is hemodynamically stable and afebrile. Continues on antibiotics per ID. No white count or fever observed in the entirety of this hospitalization, or purulent drainage. He follows with Dr. Gaffney. 10 sys ROS done and negative aside from HPI OBJECTIVE: Vital Signs Period Temp Pulse Resp BP Sys/Tillman Pulse Ox Last 24 Hr 97.6 F-97.9 F 60-60 20-20 156-196/67-89 98-98 GENERAL: The patient is awake, alert, and fully oriented, in no acute distress. HEAD: Normal with no signs of trauma. EYES: PERRL, extraocular movements intact, sclera anicteric, conjunctiva clear. No ptosis. ENT: Ears normal, nares patent, oropharynx clear without exudates, moist mucous membranes. NECK: Trachea midline, full range of motion, supple. LUNGS: Breath sounds equal, clear to auscultation bilaterally, no wheezes, no crackles, no accessory muscle use. HEART: Regular rate and rhythm, S1, S2 without murmur, rub or gallop. ABDOMEN: Soft, nontender, nondistended, normoactive bowel sounds EXTREMITIES: 2+ pulses, warm, well-perfused, no edema. NEUROLOGICAL: Cranial nerves II through XII grossly intact. Normal speech, gait not observed. PSYCH: Normal mood, normal affect. SKIN: Warm, dry, normal turgor, no rashes or lesions noted Laboratory Results - last 24 hr 05/05/19 05/05/19 05/05/19 08:27 08:27 11:24 WBC 5.9 RBC 4.07 Hgb 12.9 Hct 37.6 MCV 92.5 MCH 31.7 MCHC 34.3 RDW 13.1 Plt Count 119 L MPV 11.7 H Absolute Neuts (auto) 3.6 Neutrophils % 61.4 Lymphocytes % 26.8 D Monocytes % 7.2 Eosinophils % 3.4 Basophils % 1.2 Nucleated RBC % 0 Sodium 132 L Potassium 4.5 Chloride 97 L Carbon Dioxide 30 Anion Gap 4 L BUN 16.7 Creatinine 1.0 Est GFR (CKD-EPI)AfAm 82.02 Est GFR (CKD-EPI)NonAf 70.77 POC Glucometer 113 Random Glucose 122 H Calcium 9.2 Total Bilirubin 0.5 AST 21 ALT 28 Alkaline Phosphatase 42 L Troponin I Total Protein 7.4 Albumin 3.7 05/05/19 05/05/19 05/06/19 16:41 22:15 01:02 WBC RBC Hgb Hct MCV MCH MCHC RDW Plt Count MPV Absolute Neuts (auto) Neutrophils % Lymphocytes % Monocytes % Eosinophils % Basophils % Nucleated RBC % Sodium Potassium Chloride Carbon Dioxide Anion Gap BUN Creatinine Est GFR (CKD-EPI)AfAm Est GFR (CKD-EPI)NonAf POC Glucometer 96 100 Random Glucose Calcium Total Bilirubin AST ALT Alkaline Phosphatase Troponin I < 0.02 Total Protein Albumin 05/06/19 05:48 WBC RBC Hgb Hct MCV MCH MCHC RDW Plt Count MPV Absolute Neuts (auto) Neutrophils % Lymphocytes % Monocytes % Eosinophils % Basophils % Nucleated RBC % Sodium Potassium Chloride Carbon Dioxide Anion Gap BUN Creatinine Est GFR (CKD-EPI)AfAm Est GFR (CKD-EPI)NonAf POC Glucometer 118 Random Glucose Calcium Total Bilirubin AST ALT Alkaline Phosphatase Troponin I Total Protein Albumin Active Medications Generic Name Dose Route Start Last Admin Trade Name Freq PRN Reason Stop Dose Admin Acetaminophen 1,000 mg 05/05/19 14:55 05/06/19 01:25 Tylenol - PO 1,000 mg TID PRN Administration PAIN LEVEL 4 - 6 Aspirin 81 mg 05/04/19 10:00 05/05/19 09:16 Asa - PO 81 mg DAILY [facility] Administration Atorvastatin Calcium 40 mg 05/03/19 22:00 05/05/19 21:57 Lipitor - PO 40 mg HS [facility] Administration Bacitracin 1 applic 05/05/19 10:00 05/05/19 12:10 Bacitracin - TP 1 applic DAILY [facility] Administration Cholecalciferol 2,500 unit 05/04/19 10:00 05/05/19 09:16 Vitamin D3 - PO 2,500 unit DAILY [facility] Administration Clindamycin HCl 300 mg 05/05/19 09:00 05/06/19 06:24 Cleocin - PO 300 mg Q6HPO [facility] Administration Dorzolamide HCl 1 drop 05/03/19 22:00 05/05/19 21:59 Trusopt 2% OU 1 drop BID [facility] Administration Furosemide 20 mg 05/04/19 10:00 05/05/19 09:17 Lasix - PO 20 mg DAILY [facility] Administration Gabapentin 100 mg 05/03/19 22:00 05/05/19 21:57 Neurontin - PO 100 mg BID [facility] Administration Heparin Sodium (Porcine) 5,000 unit 05/03/19 22:00 05/06/19 06:24 Heparin - SQ 5,000 unit TID [facility] Administration Insulin Aspart 1 vial 05/03/19 22:00 05/06/19 06:23 Novolog Vial Sliding Scale - SQ Not Given ACHS [facility] Protocol Latanoprost 1 drop 05/03/19 22:00 05/05/19 21:58 Xalatan 0.005% Eye Drops - OU 1 drop HS [facility] Administration Levothyroxine Sodium 25 mcg 05/04/19 07:00 05/06/19 06:24 Synthroid - PO 25 mcg DAILY@0700 [facility] Administration Losartan Potassium 50 mg 05/04/19 10:00 05/05/19 09:17 Cozaar - PO 50 mg DAILY [facility] Administration Metoprolol Succinate 25 mg 05/04/19 10:00 05/05/19 09:17 Toprol Xl - PO 25 mg DAILY [facility] Administration Csknc-8-Pobu Ethyl Esters 1 gm 05/03/19 22:00 05/05/19 21:57 Lovaza - PO 1 gm BID [facility] Administration Timolol Maleate 1 drop 05/03/19 22:00 05/05/19 21:59 Timoptic 0.5% OU 1 drop BID [facility] Administration ASSESSMENT/PLAN: Patient remained stable. Vascular procedure here versus [place]. Cardiology will speak to the family regarding setting up transfer to [place] if this is desired versus keeping the patient here for angiogram due to the obstructive SFA lesions which likely are giving rise to the arterial ulcer. Changing to Nortyptaline and Lyrica. -Foot ulcer, likely 2/2 PAD with underlying gout. I doubt infection. -PAD with obstructing SFA lesions -S/P PPM; CV input noted. Mostly V paced. -Hx CAD s/p CABG, -HTN -Hyperlipidemia -Gout; 0.6 colchicine QD, APAP TID, PRN lyrica. -Hypothyroidism -Type 2 DM Full Code Visit type - Emergency Visit Emergency Visit: No - New Patient This patient is new to me today: No - Critical Care Critical Care patient: No
[2019-05-06] MEDS ORDERED: PT OWN MED DRAWER 7, Y5N ONE ×2 (10:03→10:07)
[2019-05-06] MEDS: ASPIRIN 81 MG CHEWABLE TABLETS PO SCH (10:05)
[2019-05-06] MEDS: CHOLECALCIFEROL (VIT D3) 1,000 UNIT (25 MCG) TABLET PO SCH (10:05)
[2019-05-06] MEDS: GABAPENTIN 100 MG CAPSULE PO SCH (10:06)
[2019-05-06] MEDS: LOSARTAN POTASSIUM 50 MG TABLET (FP) PO SCH (10:06)
[2019-05-06] MEDS: metoPROLOL SUCCINATE 25 MG TAB.SR.24H (FP) PO SCH (10:06)
[2019-05-06] MEDS: FUROSEMIDE 20 MG TABLET (FP) PO SCH (10:06)
[2019-05-06] MEDS: DORZOLAMIDE 2% HCL OPHTHALMIC SOLUTION 10 ML BOTTLE OU SCH ×2 (10:08→21:45)
[2019-05-06] MEDS: OMEGA-3 ACID ETHYL ESTERS (FATTY-ACIDS) 1 GM CAPSULE (FP) PO SCH ×2 (10:08→21:47)
[2019-05-06] MEDS: TIMOLOL 0.5% OPHTHALMIC SOL 5 ML BOTTLE OU SCH ×2 (10:08→21:45)
[2019-05-06] MEDS: BACITRACIN 15 GM TUBE TOPICAL OINTMENT TP SCH (10:08)
--- NOTE | 2019-05-06 11:00 | PN ---
Progress Note, Physician History of Present Illness: stable no issues - Current Medication List Current Medications: Active Medications Acetaminophen (Tylenol -) 1,000 mg PO TID PRN PRN Reason: PAIN LEVEL 4 - 6 Last Admin: 05/06/19 01:25 Dose: 1,000 mg Aspirin (Asa -) 81 mg PO DAILY [facility] Last Admin: 05/06/19 10:05 Dose: 81 mg Atorvastatin Calcium (Lipitor -) 40 mg PO HS [facility] Last Admin: 05/05/19 21:57 Dose: 40 mg Bacitracin (Bacitracin -) 1 applic TP DAILY [facility] Last Admin: 05/06/19 10:08 Dose: 1 applic Cholecalciferol (Vitamin D3 -) 2,500 unit PO DAILY [facility] Last Admin: 05/06/19 10:05 Dose: 2,500 unit Clindamycin HCl (Cleocin -) 300 mg PO Q6HPO [facility] Last Admin: 05/06/19 06:24 Dose: 300 mg Dorzolamide HCl (Trusopt 2%) 1 drop OU BID [facility] Last Admin: 05/06/19 10:08 Dose: 1 drop Furosemide (Lasix -) 20 mg PO DAILY [facility] Last Admin: 05/06/19 10:06 Dose: 20 mg Gabapentin (Neurontin -) 100 mg PO BID [facility] Last Admin: 05/06/19 10:06 Dose: 100 mg Heparin Sodium (Porcine) (Heparin -) 5,000 unit SQ TID [facility] Last Admin: 05/06/19 06:24 Dose: 5,000 unit Insulin Aspart (Novolog Vial Sliding Scale -) [address] [facility]; Protocol Last Admin: 05/06/19 06:23 Dose: Not Given Latanoprost (Xalatan 0.005% Eye Drops -) 1 drop OU [facility] Last Admin: 05/05/19 21:58 Dose: 1 drop Levothyroxine Sodium (Synthroid -) 25 mcg PO DAILY@0700 [facility] Last Admin: 05/06/19 06:24 Dose: 25 mcg Losartan Potassium (Cozaar -) 50 mg PO DAILY [facility] Last Admin: 05/06/19 10:06 Dose: 50 mg Metoprolol Succinate (Toprol Xl -) 25 mg PO DAILY [facility] Last Admin: 05/06/19 10:06 Dose: 25 mg Wkzic-[id number]-Mdyx Ethyl Esters (Lovaza -) 1 gm PO BID [facility] Last Admin: 05/06/19 10:08 Dose: 1 gm Timolol Maleate (Timoptic 0.5%) 1 drop OU BID [facility] Last Admin: 05/06/19 10:08 Dose: 1 drop - Objective Vital Signs: Vital Signs Temperature 98.2 F 05/06/19 08:07 Pulse Rate 60 05/06/19 08:07 Respiratory Rate 14 05/06/19 08:07 Blood Pressure 142/73 05/06/19 08:07 O2 Sat by Pulse Oximetry (%) 98 05/05/19 21:00 Constitutional: Yes: No Distress, Calm Cardiovascular: Yes: S1, S2 Respiratory: Yes: Regular, CTA Bilaterally Gastrointestinal: Yes: Normal Bowel Sounds, Soft Musculoskeletal: Yes: WNL Extremities: Yes: WNL Wound/Incision: Yes: Dressing Dry and Intact Neurological: Yes: Alert, Oriented Psychiatric: Yes: Alert, Oriented Labs: CBC, BMP 05/05/19 08:27 05/05/19 08:27 INR, PTT INR 0.88 (0.83-1.09) 05/03/19 17:07 Assessment/Plan 78 year old male with a past medical history of HTN, HLD, pacemaker (after cardiac arrest 02/12), corinary artery bypass graft, prediabetes, gout, hypothyroidism admitted for cellulitis of the great toe. Cellulitis Gout HTN HLD Hypothyrodism DM plan abx wound care rest as per the team
--- NOTE | 2019-05-06 14:29 | EKG ---
Test Reason : Blood Pressure : / mmHG Vent. Rate : 060 BPM Atrial Rate : 060 BPM P-R Int : 000 ms QRS Dur : 090 ms QT Int : 408 ms P-R-T Axes : 000 059 -12 degrees QTc Int : 408 ms Atrial-paced rhythm SEPTAL INFARCT , AGE UNDETERMINED ABNORMAL ECG Confirmed by MD SUREKHA, MABLE ([id number]) on 05/06/2019 2:28:49 PM Referred By: Confirmed By:MABLE IRBY MD
[2019-05-06] MEDS ORDERED: ACETAMINOPHEN WITH CODEINE 300MG/30MG TABLET PO PRN (16:35)
--- NOTE | 2019-05-06 16:44 | PN ---
Progress Note, Physician Chief Complaint: Pain and wound right foot - Current Medication List Current Medications: Active Medications Acetaminophen (Tylenol -) 1,000 mg PO TID PRN PRN Reason: PAIN LEVEL 4 - 6 Last Admin: 05/06/19 01:25 Dose: 1,000 mg Acetaminophen/Codeine Phosphate (Tylenol # 3 -) 1 tab PO Q4H PRN PRN Reason: PAIN LEVEL 1-5 Aspirin (Asa -) 81 mg PO DAILY [facility] Last Admin: 05/06/19 10:05 Dose: 81 mg Atorvastatin Calcium (Lipitor -) 40 mg PO HS [facility] Last Admin: 05/05/19 21:57 Dose: 40 mg Bacitracin (Bacitracin -) 1 applic TP DAILY [facility] Last Admin: 05/06/19 10:08 Dose: 1 applic Cholecalciferol (Vitamin D3 -) 2,500 unit PO DAILY [facility] Last Admin: 05/06/19 10:05 Dose: 2,500 unit Clindamycin HCl (Cleocin -) 300 mg PO Q6HPO [facility] Last Admin: 05/06/19 11:31 Dose: 300 mg Dorzolamide HCl (Trusopt 2%) 1 drop OU BID [facility] Last Admin: 05/06/19 10:08 Dose: 1 drop Furosemide (Lasix -) 20 mg PO DAILY [facility] Last Admin: 05/06/19 10:06 Dose: 20 mg Gabapentin (Neurontin -) 100 mg PO BID [facility] Last Admin: 05/06/19 10:06 Dose: 100 mg Heparin Sodium (Porcine) (Heparin -) 5,000 unit SQ TID [facility] Last Admin: 05/06/19 14:35 Dose: 5,000 unit Insulin Aspart (Novolog Vial Sliding Scale -) 1 vial SQ ACHS [facility]; Protocol Last Admin: 05/06/19 16:23 Dose: Not Given Latanoprost (Xalatan 0.005% Eye Drops -) 1 drop OU HS [facility] Last Admin: 05/05/19 21:58 Dose: 1 drop Levothyroxine Sodium (Synthroid -) 25 mcg PO DAILY@0700 [facility] Last Admin: 05/06/19 06:24 Dose: 25 mcg Losartan Potassium (Cozaar -) 50 mg PO DAILY [facility] Last Admin: 05/06/19 10:06 Dose: 50 mg Metoprolol Succinate (Toprol Xl -) 25 mg PO DAILY [facility] Last Admin: 05/06/19 10:06 Dose: 25 mg Powvh-7-Yfae Ethyl Esters (Lovaza -) 1 gm PO BID [facility] Last Admin: 05/06/19 10:08 Dose: 1 gm Timolol Maleate (Timoptic 0.5%) 1 drop OU BID [facility] Last Admin: 05/06/19 10:08 Dose: 1 drop - Objective Vital Signs: Vital Signs Temperature 97.6 F 05/06/19 15:03 Pulse Rate 60 05/06/19 15:03 Respiratory Rate 18 05/06/19 15:03 Blood Pressure 141/64 05/06/19 15:03 O2 Sat by Pulse Oximetry (%) 98 05/06/19 09:00 Extremities: Yes: Other (+wound 4th toe right that is clean but non healing due to poor blood supply most likely) Labs: CBC, BMP 05/05/19 08:27 05/05/19 08:27 INR, PTT INR 0.88 (0.83-1.09) 05/03/19 17:07 Assessment/Plan ischemia right foot grade 2 wound 4th toe right Reviewed CTA. read and appreciated vascular note. Discussed with Dr. Ponce. Will follow. present throughout visit.
[2019-05-06] MEDS ORDERED: MELATONIN 5 MG TABLETS PO ONE (21:24)
[2019-05-06] MEDS ORDERED: KETOROLAC TROMETHAMINE 15 MG/ML VIAL IVPUSH ONE (21:26)
[2019-05-06] MEDS: LATANOPROST 0.005% OPHTH SOLN 2.5ML BOTTLE OU SCH (21:45)
[2019-05-06] MEDS: ATORVASTATIN CA 40 MG TABLET (FP) PO SCH (21:46)
[2019-05-06] MEDS: PREGABALIN 50 MG CAPSULE PO SCH (21:46)
[2019-05-06] MEDS: NORTRIPTYLINE HCL 10 MG CAPSULE PO SCH (23:02)
[2019-05-07] MEDS: CLINDAMYCIN HCL 150 MG CAPSULE (FP) PO SCH ×4 (00:33→17:11)
[2019-05-07] MEDS ORDERED: CALCIUM CARBONATE 650 MG TABLET PO ONE (01:20)
[2019-05-07 02:50] LABS: ALBUMIN 3.6 g/dl (3.4-5.0); ALK PHOS 42 U/L (45-117); ANION GAP 7 MMOL/L (8-16); BILIRUBIN,TOTAL 0.4 mg/dL (0.2-1); BLOOD UREA NITROGEN 18.4 mg/dL (7-18); CALCIUM 9.1 mg/dL (8.5-10.1); CHLORIDE 100 mmol/L (98-107); CO2 27 mmol/L (21-32); GLUCOSE,RANDOM 143 mg/dL (74-106); SGOT/AST 105 U/L (15-37); SGPT/ALT 97 U/L (13-61); SODIUM 134 mmol/L (136-145); TOT PROT 7.1 g/dl (6.4-8.2)
[2019-05-07] MEDS: HEPARIN NA (PORCINE) 5,000 UNITS/ML 1ML VIAL SQ SCH ×3 (06:07→22:01)
[2019-05-07] MEDS: INSULIN SLIDING SCALE (NOVOLOG) 1 VIAL SQ SCH ×4 (06:12→23:03)
[2019-05-07] MEDS: LEVOTHYROXINE NA 25 MCG TABLET (FP) PO SCH (06:13)
[2019-05-07 08:25] LABS: ALBUMIN 3.9 g/dl (3.4-5.0); ALK PHOS 41 U/L (45-117); ANION GAP 10 MMOL/L (8-16); BILIRUBIN,TOTAL 0.4 mg/dL (0.2-1); BLOOD UREA NITROGEN 19.4 mg/dL (7-18); CALCIUM 7.5 mg/dL (8.5-10.1); CHLORIDE 99 mmol/L (98-107); CO2 23 mmol/L (21-32); CREATININE 0.9 mg/dL (0.55-1.3); GLUCOSE,RANDOM 130 mg/dL (74-106); PHOSPHOROUS 3.8 mg/dL (2.5-4.9); POTASSIUM 4.4 mmol/L (3.5-5.1); SGOT/AST 28 U/L (15-37); SGPT/ALT 26 U/L (13-61); SODIUM 131 mmol/L (136-145); TOT PROT 6.9 g/dl (6.4-8.2)
[2019-05-07] MEDS ORDERED: PT OWN MED DRAWER 7, Y5N ONE ×2 (08:50→21:09)
[2019-05-07] MEDS: PREGABALIN 50 MG CAPSULE PO SCH (09:18)
[2019-05-07] MEDS: ASPIRIN 81 MG CHEWABLE TABLETS PO SCH (09:18)
[2019-05-07] MEDS: CHOLECALCIFEROL (VIT D3) 1,000 UNIT (25 MCG) TABLET PO SCH (09:18)
[2019-05-07] MEDS: FUROSEMIDE 20 MG TABLET (FP) PO SCH (09:20)
[2019-05-07] MEDS: metoPROLOL SUCCINATE 25 MG TAB.SR.24H (FP) PO SCH (09:20)
[2019-05-07] MEDS: TIMOLOL 0.5% OPHTHALMIC SOL 5 ML BOTTLE OU SCH ×2 (09:21→23:31)
[2019-05-07] MEDS: OMEGA-3 ACID ETHYL ESTERS (FATTY-ACIDS) 1 GM CAPSULE (FP) PO SCH ×2 (09:21→22:32)
[2019-05-07] MEDS: NORTRIPTYLINE HCL 10 MG CAPSULE PO SCH ×2 (09:21→22:32)
[2019-05-07] MEDS: LOSARTAN POTASSIUM 50 MG TABLET (FP) PO SCH (09:21)
[2019-05-07] MEDS: BACITRACIN 15 GM TUBE TOPICAL OINTMENT TP SCH (09:21)
[2019-05-07] MEDS: DORZOLAMIDE 2% HCL OPHTHALMIC SOLUTION 10 ML BOTTLE OU SCH ×2 (09:22→23:31)
--- NOTE | 2019-05-07 13:03 | PN ---
Progress Note, Physician Chief Complaint: Pain and wound right foot - Current Medication List Current Medications: Active Medications Acetaminophen (Tylenol -) 1,000 mg PO TID PRN PRN Reason: PAIN LEVEL 4 - 6 Last Admin: 05/06/19 01:25 Dose: 1,000 mg Acetaminophen/Codeine Phosphate (Tylenol # 3 -) 1 tab PO Q4H PRN PRN Reason: PAIN LEVEL 1-5 Last Admin: 05/06/19 16:41 Dose: 1 tab Aspirin (Asa -) 81 mg PO DAILY [facility] Last Admin: 05/07/19 09:18 Dose: 81 mg Atorvastatin Calcium (Lipitor -) 40 mg PO HS [facility] Last Admin: 05/06/19 21:46 Dose: 40 mg Bacitracin (Bacitracin -) 1 applic TP DAILY [facility] Last Admin: 05/07/19 09:21 Dose: 1 applic Cholecalciferol (Vitamin D3 -) 2,500 unit PO DAILY [facility] Last Admin: 05/07/19 09:18 Dose: 2,500 unit Clindamycin HCl (Cleocin -) 300 mg PO Q6HPO [facility] Last Admin: 05/07/19 12:00 Dose: 300 mg Dorzolamide HCl (Trusopt 2%) 1 drop OU BID [facility] Last Admin: 05/07/19 09:22 Dose: 1 drop Furosemide (Lasix -) 20 mg PO DAILY [facility] Last Admin: 05/07/19 09:20 Dose: 20 mg Heparin Sodium (Porcine) (Heparin -) 5,000 unit SQ TID [facility] Last Admin: 05/07/19 06:07 Dose: 5,000 unit Insulin Aspart (Novolog Vial Sliding Scale -) 1 vial SQ [facility]; Protocol Last Admin: 05/07/19 11:03 Dose: Not Given Latanoprost (Xalatan 0.005% Eye Drops -) 1 drop OU HS [facility] Last Admin: 05/06/19 21:45 Dose: 1 drop Levothyroxine Sodium (Synthroid -) 25 mcg PO DAILY@0700 [facility] Last Admin: 05/07/19 06:13 Dose: 25 mcg Losartan Potassium (Cozaar -) 50 mg PO DAILY [facility] Last Admin: 05/07/19 09:21 Dose: 50 mg Metoprolol Succinate (Toprol Xl -) 25 mg PO DAILY [facility] Last Admin: 05/07/19 09:20 Dose: 25 mg Nortriptyline HCl (Pamelor -) 10 mg PO BID [facility] Last Admin: 05/07/19 09:21 Dose: 10 mg Yjxek-9-Iepo Ethyl Esters (Lovaza -) 1 gm PO BID [facility] Last Admin: 05/07/19 09:21 Dose: 1 gm Pregabalin (Lyrica -) 50 mg PO BID [facility] Last Admin: 05/07/19 09:18 Dose: 50 mg Timolol Maleate (Timoptic 0.5%) 1 drop OU BID [facility] Last Admin: 05/07/19 09:21 Dose: 1 drop - Objective Vital Signs: Vital Signs Temperature 97.6 F 05/07/19 07:49 Pulse Rate 60 05/07/19 07:49 Respiratory Rate 14 05/07/19 07:49 Blood Pressure 128/64 05/07/19 07:49 O2 Sat by Pulse Oximetry (%) 98 05/07/19 08:50 Extremities: Yes: Other (+improving wound right,) Labs: CBC, BMP 05/05/19 08:27 05/07/19 01:40 INR, PTT INR 0.88 (0.83-1.09) 05/03/19 17:07 Assessment/Plan ischemia right foot grade 2 wound 4th toe right Awaiting vascular. Family present throughout. Abx as per ID. Cardiology on case for chest pain. will follow.
[2019-05-07] MEDS ORDERED: ASPIRIN 325 MG TABLET PO ONE (13:57)
[2019-05-07] MEDS ORDERED: NITROGLYCERIN SUBLINGUAL 1/150 0.4 MG TAB SL ONE (13:58)
--- NOTE | 2019-05-07 14:12 | EKG ---
Test Reason : Blood Pressure : / mmHG Vent. Rate : 060 BPM Atrial Rate : 060 BPM P-R Int : 226 ms QRS Dur : 170 ms QT Int : 482 ms P-R-T Axes : -14 -82 076 degrees QTc Int : 482 ms AV dual-paced rhythm with prolonged AV conduction ABNORMAL ECG Confirmed by MD SUREKHA, MABLE ([id number]) on 05/07/2019 2:12:15 PM Referred By: Confirmed By:MABLE IRBY MD
[2019-05-07] MEDS ORDERED: ACETAMINOPHEN WITH CODEINE 300MG/30MG TABLET PO PRN (15:35)
[2019-05-07] MEDS ORDERED: ACETAMINOPHEN 500 MG TABLET (FP) PO PRN (15:35)
[2019-05-07 16:03] LABS: CHOLESTEROL 159 mg/dL (50-200); HDL CHOLESTEROL 62 mg/dL (40-60); LDL CHOLESTEROL (ONLY SJRH) 65 mg/dL (5-100); TRIGLYCERIDES 499 mg/dL (0-150)
--- NOTE | 2019-05-07 17:04 | PN ---
Physical Exam: SUBJECTIVE: Patient seen and examined. Currently in moderate-severe toe pain. Pt is afebrile. denies f/c/n/v/d/sob, cp OBJECTIVE: Vital Signs Period Temp Pulse Resp BP Sys/Tillman Pulse Ox Last 24 Hr 97.6 F-97.9 F 60-62 14-20 128-155/64-95 98-98 GENERAL: Awake, alert, and fully oriented, in no acute distress. EYES: Pupils equal, round and reactive to light, extraocular movements intact, sclera anicteric, conjunctiva clear. EARS, NOSE, THROAT: Oropharynx clear without exudates. Moist mucous membranes. NECK: Normal range of motion, supple without lymphadenopathy, JVD. LUNGS: Breath sounds equal, clear to auscultation bilaterally. No wheezes, and no crackles. No accessory muscle use. HEART: Regular rate and rhythm, normal S1 and S2 with prominent systolic ejection murmur. ABDOMEN: Soft, nontender, not distended, normoactive bowel sounds, no guarding, no rebound, no masses. LOWER EXTREMITIES: non-palpable pulses, warm, well-perfused. No calf tenderness. No peripheral edema. NEUROLOGICAL: Cranial nerves II-XII intact. 5/5 muscle strength upper and lower extremities bilaterally. SKIN: Noted open wound on the R 4th toe extending around the circumference of the toe. Dressed. Laboratory Results - last 24 hr CBC,CMP WBC 5.9 K/mm3 (4.0-10.0) 05/05/19 08:27 RBC 4.07 M/mm3 (4.00-5.60) 05/05/19 08:27 Hgb 12.9 GM/dL (11.7-16.9) 05/05/19 08:27 Hct 37.6 % (35.4-49) 05/05/19 08:27 MCV 92.5 fl (80-96) 05/05/19 08:27 MCH 31.7 pg (25.7-33.7) 05/05/19 08: MCHC 34.3 g/dl (32.0-35.9) 05/05/19 08:27 RDW 13.1 % (11.9-15.9) 05/05/19 08:27 Plt Count 119 K/MM3 (134-434) L 05/05/19 08:27 MPV 11.7 fl (7.5-11.1) H 05/05/19 08:27 Absolute Neuts (auto) 3.6 K/mm3 (1.5-8.0) 05/05/19 08:27 Neutrophils % 61.4 % (42.8-82.8) 05/05/19 08:27 Lymphocytes % 26.8 % (8-40) D 05/05/19 08:27 Monocytes % 7.2 % (3.8-10.2) 05/05/19 08:27 Eosinophils % 3.4 % (0-4.5) 05/05/19 08:27 Basophils % 1.2 % (0-2.0) 05/05/19 08:27 Nucleated RBC % 0 % (0-0) 05/05/19 08:27 ESR 9 mm/hr (0-20) 05/04/19 05:40 Sodium 134 mmol/L (136-145) L 05/07/19 01:40 Potassium 4.0 mmol/L (3.5-5.1) 05/07/19 01:40 Chloride 100 mmol/L (98-107) 05/07/19 01:40 Carbon Dioxide 27 mmol/L (21-32) 05/07/19 01:40 Anion Gap 7 MMOL/L (8-16) L 05/07/19 01:40 BUN 18.4 mg/dL (7-18) H 05/07/19 01:40 Creatinine 1.0 mg/dL (0.55-1.3) 05/07/19 01:40 Est GFR (CKD-EPI)AfAm 82.02 05/07/19 01:40 Est GFR (CKD-EPI)NonAf 70.77 05/07/19 01:40 POC Glucometer 150 UNITS (80-120) 05/07/19 11:02 Random Glucose 143 mg/dL (74-106) H 05/07/19 01:40 Hemoglobin A1c % 6.8 % (4.2-6.3) H 05/07/19 15:10 Uric Acid 5.2 mg/dL (2.6-7.2) 05/04/19 05:40 Calcium 9.1 mg/dL (8.5-10.1) 05/07/19 01:40 Phosphorus 3.8 mg/dL (2.5-4.9) 05/06/19 01:02 Magnesium 2.1 mg/dL (1.8-2.4) 05/04/19 05:40 Total Bilirubin 0.4 mg/dL (0.2-1) 05/07/19 01:40 AST 105 U/L (15-37) H 05/07/19 01:40 ALT 97 U/L (13-61) H 05/07/19 01:40 Alkaline Phosphatase 42 U/L (45-117) L 05/07/19 01:40 Creatine Kinase 82 U/L (26-308) 05/07/19 01:40 CK-MB (CK-2) 1.7 ng/mL (0.5-3.6) 05/06/19 01:02 Troponin I < 0.02 ng/ml (0.00-0.05) 05/07/19 15:10 C-Reactive Protein < 0.3 MG/DL (0.00-0.3) 05/04/19 05:40 Total Protein 7.1 g/dl (6.4-8.2) 05/07/19 01:40 Albumin 3.6 g/dl (3.4-5.0) 05/07/19 01:40 Triglycerides 499 mg/dL (0-150) H 05/07/19 15:10 Cholesterol 159 mg/dL (50-200) 05/07/19 15:10 Total LDL Cholesterol 65 mg/dL (5-100) 05/07/19 15:10 HDL Cholesterol 62 mg/dL (40-60) H 05/07/19 15:10 TSH 6.13 uIU/ml (0.358-3.74) H 05/04/19 05:40 Free T4 1.12 ng/dl (0.76-1.16) 05/04/19 05:40 Active Medications Generic Name Dose Route Start Last Admin Trade Name Freq PRN Reason Stop Dose Admin Acetaminophen 1,000 mg 05/07/19 15:35 Tylenol - PO TID PRN PAIN LEVEL 4 - 6 Acetaminophen/Codeine Phosphate 1 tab 05/07/19 15:35 Tylenol # 3 - PO Q4H PRN PAIN LEVEL 1-5 Aspirin 81 mg 05/08/19 10:00 Asa - PO DAILY [facility] Atorvastatin Calcium 40 mg 05/07/19 22:00 Lipitor - PO HS [facility] Bacitracin 1 applic 05/08/19 10:00 Bacitracin - TP DAILY [facility] Cholecalciferol 2,500 unit 05/08/19 10:00 Vitamin D3 - PO DAILY [facility] Clindamycin HCl 300 mg 05/07/19 18:00 Cleocin - PO Q6HPO [facility] Dorzolamide HCl 1 drop 05/07/19 22:00 Trusopt 2% OU BID [facility] Furosemide 20 mg 05/08/19 10:00 Lasix - PO DAILY [facility] Heparin Sodium (Porcine) 5,000 unit 05/07/19 22:00 Heparin - SQ TID [facility] Insulin Aspart 1 vial 05/07/19 16:30 Novolog Vial Sliding Scale - SQ ACHS [facility] Protocol Latanoprost 1 drop 05/07/19 22:00 Xalatan 0.005% Eye Drops - OU HS [facility] Levothyroxine Sodium 25 mcg 05/08/19 07:00 Synthroid - PO DAILY@0700 [facility] Losartan Potassium 50 mg 05/08/19 10:00 Cozaar - PO DAILY [facility] Metoprolol Succinate 25 mg 05/08/19 10:00 Toprol Xl - PO DAILY [facility] Nortriptyline HCl 10 mg 05/07/19 22:00 Pamelor - PO BID [facility] Vlrgb-8-Lmzi Ethyl Esters 1 gm 05/07/19 22:00 Lovaza - PO BID [facility] Pregabalin 75 mg 05/07/19 22:00 Lyrica - PO BID [facility] Timolol Maleate 1 drop 05/07/19 22:00 Timoptic 0.5% OU BID [facility] ASSESSMENT/PLAN: 78 y/o male with a past medical history of HTN, HLD, pacemaker (after cardiac arrest 02/12), coronary artery bypass graft, prediabetes, gout, hypothyroidism admitted for cellulitis of the Right 4th toe ulcer #Cellulitis- Right 4th toe ulcer no osteomyelitis on x ray history of hardware and pacemaker Pacemaker card under investigation to see if its MRI compatible cont Clindamycin tylenol 650 Q4, toradol Q6, and home gabapentin for pain, started on Lyrica and notriptyline Control pt's nociceptive pain adequately- started on Tramadol 25, if no improvement, titrate up to 50, if still no improvement consider morphine low dose #Chest pain 40 mins as per pt EKG- shows new ST elevation only on 1 lead Cardiology consulted- advised to monitor on tele, likely misplaced leads due to presenc eof only one lead acute change ASA 325, Nitroglycerine Trops- neg, CK-mb, lipids ordered #PAD As per Dr. Ponce- discussed with family the need for intervention, family leaning towards procedure in [facility], will f/u w/ Dr. Ponce #Gout continue home allopurinol #HTN home losartan and metoprolol #HLD continue home atorvastatin #Hypothyrodism continue home Synthroid TSH elevated #DM BGM ISS #DVT PPx heparin sq FEN no standing fluids, encourage PO intake monitor lytes diabetic diet Dispo: f/u vascular recom, control pt's nociceptive pain, monitor on tele Visit type - Emergency Visit Emergency Visit: Yes ED Registration Date: 05/03/19 Care time: The patient presented to the Emergency Department on the above date and was hospitalized for further evaluation of their emergent condition. - New Patient This patient is new to me today: Yes Date on this admission: 05/07/19 - Critical Care Critical Care patient: No - Discharge Referral Referred to [facility] Med P.C.: No ATTENDING PHYSICIAN STATEMENT I saw and evaluated the patient. I reviewed the resident's note and discussed the case with the resident. I agree with the resident's findings and plan as documented. SUBJECTIVE: OBJECTIVE: ASSESSMENT AND PLAN:
--- NOTE | 2019-05-07 18:54 | PN ---
Progress Note, Physician Chief Complaint: Pt alert; weak. Family at bedside, including and daughters. Transferred to telemetry-monitored bed because of chest discomfort in early am, ?EKG changes. History of Present Illness: Patient is an 78 year old male with a significant pmh of pacemaker (01/2017), coronary bypass, HTN, hyperlipidemia who presents vis Podiatry with an infection on his right fourth toe that has been present for the past few weeks. Patient was seen on Wednesday where the infection was drained: mostly water and minimal pus. Over the course of the last 3 days, he has been on Keflex, which as per family has not helped his symptoms. Denies fever/chills. Allergies: NKA PCP: Dr. Fajardo Podiatry: Dr. Wright - Current Medication List Current Medications: Active Medications Acetaminophen (Tylenol -) 1,000 mg PO TID PRN PRN Reason: PAIN LEVEL 4 - 6 Acetaminophen/Codeine Phosphate (Tylenol # 3 -) 1 tab PO Q4H PRN PRN Reason: PAIN LEVEL 1-5 Aspirin (Asa -) 81 mg PO DAILY [facility] Atorvastatin Calcium (Lipitor -) 40 mg PO HS [facility] Bacitracin (Bacitracin -) 1 applic TP DAILY [facility] Cholecalciferol (Vitamin D3 -) 2,500 unit PO DAILY [facility] Clindamycin HCl (Cleocin -) 300 mg PO Q6HPO [facility] Last Admin: 05/07/19 17:11 Dose: 300 mg Dorzolamide HCl (Trusopt 2%) 1 drop OU BID [facility] Furosemide (Lasix -) 20 mg PO DAILY [facility] Heparin Sodium (Porcine) (Heparin -) 5,000 unit SQ TID [facility] Insulin Aspart (Novolog Vial Sliding Scale -) 1 vial SQ ACHS [facility]; Protocol Last Admin: 05/07/19 17:11 Dose: Not Given Latanoprost (Xalatan 0.005% Eye Drops -) 1 drop OU HS [facility] Levothyroxine Sodium (Synthroid -) 25 mcg PO DAILY@0700 [facility] Losartan Potassium (Cozaar -) 50 mg PO DAILY [facility] Metoprolol Succinate (Toprol Xl -) 25 mg PO DAILY [facility] Nortriptyline HCl (Pamelor -) 10 mg PO BID [facility] [id number] Ethyl Esters (Lovaza -) 1 gm PO BID [facility] Pregabalin (Lyrica -) 75 mg PO BID [facility] Timolol Maleate (Timoptic 0.5%) 1 drop OU BID [facility] - Objective Vital Signs: Vital Signs Temperature 97.8 F 05/07/19 18:00 Pulse Rate 60 05/07/19 18:00 Respiratory Rate 18 05/07/19 18:00 Blood Pressure 141/67 05/07/19 18:00 O2 Sat by Pulse Oximetry (%) 99 05/07/19 16:00 Constitutional: Yes: Calm Eyes: Yes: WNL HENT: Yes: WNL Neck: Yes: WNL Cardiovascular: Yes: S1, S2 Respiratory: Yes: Regular Gastrointestinal: Yes: Soft ...Rectal Exam: Yes: Deferred Genitourinary: No: Anuria Breast(s): Yes: WNL Musculoskeletal: Yes: Muscle Weakness Extremities: Yes: Cool Edema: No Peripheral Pulses WNL: No Peripheral Pulses: Right Dorsalis Pedis: 1+ Integumentary: Yes: WNL Neurological: Yes: Alert, Oriented, Weakness Psychiatric: Yes: Alert, Oriented Labs: CBC, BMP 05/05/19 08:27 05/07/19 01:40 INR, PTT INR 0.88 (0.83-1.09) 05/03/19 17:07 Abnormal Lab Results 05/06/19 05/07/19 05/07/19 01:02 15:10 15:10 Sodium 131 L BUN 19.4 H Random Glucose 130 H Hemoglobin A1c % 6.8 H Calcium 7.5 L Alkaline Phosphatase 41 L Triglycerides 499 H HDL Cholesterol 62 H Problem List - Problems (1) Hyperlipidemia associated with type 2 diabetes mellitus Code(s): E11.69 - TYPE 2 DIABETES MELLITUS WITH OTHER SPECIFIED COMPLICATION; E78.5 - HYPERLIPIDEMIA, UNSPECIFIED (2) Hypertensive heart disease Code(s): I11.9 - HYPERTENSIVE HEART DISEASE WITHOUT HEART FAILURE Qualifiers: Heart failure presence: without heart failure Qualified Code(s): I11.9 - Hypertensive heart disease without heart failure (3) PAD (peripheral artery disease) Assessment/Plan: Hx severe PAD. Plan to f/u with pt's vascular MD as outpatient, unless acute deterioration. Code(s): I73.9 - PERIPHERAL VASCULAR DISEASE, UNSPECIFIED (4) S/P CABG (coronary artery bypass graft) Code(s): Z95.1 - PRESENCE OF AORTOCORONARY BYPASS GRAFT (5) Toe infection Code(s): L08.9 - LOCAL INFECTION OF THE SKIN AND SUBCUTANEOUS TISSUE, UNSP (6) Wound, open, foot Code(s): S91.309A - UNSPECIFIED OPEN WOUND, UNSPECIFIED FOOT, INITIAL ENCOUNTER Qualifiers: Encounter type: initial encounter Laterality: right Qualified Code(s): S91.301A - Unspecified open wound, right foot, initial encounter (7) CHF (congestive heart failure) Code(s): I50.9 - HEART FAILURE, UNSPECIFIED Qualifiers: Heart failure type: other Qualified Code(s): I50.9 - Heart failure, unspecified (8) Dizziness Code(s): R42 - DIZZINESS AND GIDDINESS (9) SOB (shortness of breath) Code(s): R06.02 - SHORTNESS OF BREATH (10) URI (upper respiratory infection) Code(s): J06.9 - ACUTE UPPER RESPIRATORY INFECTION, UNSPECIFIED (11) Chest pain Assessment/Plan: c/o chest pain twice overnight; reportedly had sweating on 2nd episode. TNI < 0.02. EKG: AV pacing; non specific changes. F/u serial TNI, EKG. On telemetry. Code(s): R07.9 - CHEST PAIN, UNSPECIFIED
[2019-05-07] MEDS: ATORVASTATIN CA 40 MG TABLET (FP) PO SCH (21:59)
[2019-05-07] MEDS ORDERED: PREGABALIN 50 MG CAPSULE PO SCH (22:00)
[2019-05-07] MEDS ORDERED: PREGABALIN 75 MG CAPSULE PO SCH (22:00)
[2019-05-07] MEDS: PREGABALIN 75 MG CAPSULE PO SCH (22:34)
[2019-05-07] MEDS: LATANOPROST 0.005% OPHTH SOLN 2.5ML BOTTLE OU SCH (23:00)
[2019-05-08] MEDS: CLINDAMYCIN HCL 150 MG CAPSULE (FP) PO SCH ×5 (00:19→23:50)
[2019-05-08] MEDS ORDERED: ASPIRIN 81 MG CHEWABLE TABLETS PO ONE (01:28)
[2019-05-08] MEDS: HEPARIN NA (PORCINE) 5,000 UNITS/ML 1ML VIAL SQ SCH ×3 (05:11→22:51)
[2019-05-08] MEDS: LEVOTHYROXINE NA 25 MCG TABLET (FP) PO SCH (06:40)
[2019-05-08] MEDS: INSULIN SLIDING SCALE (NOVOLOG) 1 VIAL SQ SCH ×4 (06:45→22:52)
[2019-05-08 08:03] LABS: HEMATOCRIT 36.7 % (35.4-49); HEMOGLOBIN 12.3 GM/dL (11.7-16.9); MCH 31.4 pg (25.7-33.7); MCHC 33.6 g/dl (32.0-35.9); MEAN CELL VOLUME 93.4 fl (80-96); MEAN PLT VOLUME 11.1 fl (7.5-11.1); PLATELET COUNT 109 K/MM3 (134-434); RBC 3.93 M/mm3 (4.00-5.60); RDW 12.9 % (11.9-15.9); WHITE BLOOD COUNT 5.7 K/mm3 (4.0-10.0)
[2019-05-08 08:04] LABS: ALBUMIN 3.5 g/dl (3.4-5.0); BILIRUBIN,TOTAL 0.4 mg/dL (0.2-1); BLOOD UREA NITROGEN 13.6 mg/dL (7-18); CREATININE 0.8 mg/dL (0.55-1.3); POTASSIUM 4.4 mmol/L (3.5-5.1); TOT PROT 6.9 g/dl (6.4-8.2)
[2019-05-08] MEDS ORDERED: PT OWN MED DRAWER 7, Y5N ONE ×4 (09:03→22:06)
--- NOTE | 2019-05-08 09:39 | EKG ---
Test Reason : Blood Pressure : / mmHG Vent. Rate : 060 BPM Atrial Rate : 060 BPM P-R Int : 402 ms QRS Dur : 100 ms QT Int : 396 ms P-R-T Axes : -24 058 -41 degrees QTc Int : 396 ms Atrial-paced rhythm with prolonged AV conduction and ventricular sensed NONSPECIFIC T WAVE ABNORMALITY ABNORMAL ECG WHEN COMPARED WITH ECG OF 07-MAY-2019 02:09, Ventricular sensed has replaced ventricular pacing Confirmed by Cleo Daniels ([id number]) on 05/08/2019 9:38:44 AM Referred By: Rishabh DELANEY Confirmed By:Cleo Daniels
--- NOTE | 2019-05-08 09:56 | PN ---
Progress Note, Physician History of Present Illness: Transferred to telemetry for chest pain, diaphoresis, r/o MD. Currently chest pain free. - Current Medication List Current Medications: Active Medications Acetaminophen (Tylenol -) 1,000 mg PO TID PRN PRN Reason: PAIN LEVEL 4 - 6 Acetaminophen/Codeine Phosphate (Tylenol # 3 -) 1 tab PO Q4H PRN PRN Reason: PAIN LEVEL 1-5 Aspirin (Asa -) 81 mg PO DAILY [facility] Atorvastatin Calcium (Lipitor -) 40 mg PO HS [facility] Last Admin: 05/07/19 21:59 Dose: 40 mg Bacitracin (Bacitracin -) 1 applic TP DAILY [facility] Cholecalciferol (Vitamin D3 -) 2,500 unit PO DAILY [facility] Clindamycin HCl (Cleocin -) 300 mg PO Q6HPO [facility] Last Admin: 05/08/19 05:11 Dose: 300 mg Dorzolamide HCl (Trusopt 2%) 1 drop OU BID [facility] Last Admin: 05/07/19 23:31 Dose: 1 drop Furosemide (Lasix -) 20 mg PO DAILY [facility] Heparin Sodium (Porcine) (Heparin -) 5,000 unit SQ TID [facility] Last Admin: 05/08/19 05:11 Dose: 5,000 unit Insulin Aspart (Novolog Vial Sliding Scale -) 1 vial SQ [facility]; Protocol Last Admin: 05/08/19 06:45 Dose: Not Given Latanoprost (Xalatan 0.005% Eye Drops -) 1 drop OU [facility] Last Admin: 05/07/19 23:00 Dose: 1 drop Levothyroxine Sodium (Synthroid -) 25 mcg PO DAILY@0700 [facility] Last Admin: 05/08/19 06:40 Dose: 25 mcg Losartan Potassium (Cozaar -) 50 mg PO DAILY [facility] Metoprolol Succinate (Toprol Xl -) 25 mg PO DAILY [facility] Nortriptyline HCl (Pamelor -) 10 mg PO BID [facility] Last Admin: 05/07/19 22:32 Dose: 10 mg Ksvyf-2-Ieml Ethyl Esters (Lovaza -) 1 gm PO BID [facility] Last Admin: 05/07/19 22:32 Dose: 1 gm Pregabalin (Lyrica -) 75 mg PO BID [facility] Last Admin: 05/07/19 22:34 Dose: 75 mg Timolol Maleate (Timoptic 0.5%) 1 drop OU BID [facility] Last Admin: 05/07/19 23:31 Dose: 1 drop - Objective Vital Signs: Vital Signs Temperature 97.7 F 05/08/19 08:05 Pulse Rate 59 L 05/08/19 08:05 Respiratory Rate 20 05/08/19 08:05 Blood Pressure 137/67 05/08/19 08:05 O2 Sat by Pulse Oximetry (%) 99 05/07/19 21:00 Constitutional: Yes: No Distress, Calm, Thin Neck: Yes: Supple Cardiovascular: Yes: Regular Rate and Rhythm Respiratory: Yes: Regular, CTA Bilaterally Gastrointestinal: Yes: Normal Bowel Sounds, Soft Edema: No Labs: CBC, BMP 05/08/19 06:26 05/08/19 06:26 INR, PTT INR 0.88 (0.83-1.09) 05/03/19 17:07 Problem List - Problems (1) PAD (peripheral artery disease) Code(s): I73.9 - PERIPHERAL VASCULAR DISEASE, UNSPECIFIED (2) CAD (coronary artery disease) Code(s): I25.10 - ATHSCL HEART DISEASE OF [place] CORONARY ARTERY W/O ANG PCTRS Qualifiers: Coronary Disease-Associated Artery/Lesion type: [place] artery [place] vs. transplanted heart: [place] heart Associated angina: without angina Qualified Code(s): I25.10 - Atherosclerotic heart disease of [place] coronary artery without angina pectoris (3) S/P CABG (coronary artery bypass graft) Code(s): Z95.1 - PRESENCE OF AORTOCORONARY BYPASS GRAFT (4) Hypertensive heart disease Code(s): I11.9 - HYPERTENSIVE HEART DISEASE WITHOUT HEART FAILURE Qualifiers: Heart failure presence: without heart failure Qualified Code(s): I11.9 - Hypertensive heart disease without heart failure (5) Hyperlipidemia associated with type 2 diabetes mellitus Code(s): E11.69 - TYPE 2 DIABETES MELLITUS WITH OTHER SPECIFIED COMPLICATION; E78.5 - HYPERLIPIDEMIA, UNSPECIFIED (6) Toe infection Code(s): L08.9 - LOCAL INFECTION OF THE SKIN AND SUBCUTANEOUS TISSUE, UNSP (7) Wound, open, foot Code(s): S91.309A - UNSPECIFIED OPEN WOUND, UNSPECIFIED FOOT, INITIAL ENCOUNTER Qualifiers: Encounter type: initial encounter Laterality: right Qualified Code(s): S91.301A - Unspecified open wound, right foot, initial encounter Assessment/Plan Vascular Duplex revealed severe arthrosclerotic disease with hemodynamically significant stenosis at the right and left popliteal artery 05/05/2019 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 1. 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 Chest pain with underlying CAD s/p CABG, angina pectoris 4. HTN, BP control not at goal 5. Hyperlipidemia 6. Gout 7. Hypothyroidism 8. Type 2 DM P:1. Discussed case with Dr. Calderon of [facility] he will see him in office for possible outpatient LE angiogram 2. Continue ASA 81 qd, losartan 50 qd, increase Toprol XL 50 qd, Zocor 80 qhs 3. Complete abx course per ID 4. Ruled out for MD, Suzy Myoview to evaluate severity of CAD 5. Plan of care d/w family and housestaff
[2019-05-08] MEDS: LOSARTAN POTASSIUM 50 MG TABLET (FP) PO SCH (09:57)
[2019-05-08] MEDS ORDERED: metoPROLOL SUCCINATE 25 MG TAB.SR.24H (FP) PO SCH (10:00)
--- NOTE | 2019-05-08 11:39 | EKG ---
Test Reason : Blood Pressure : / mmHG Vent. Rate : 060 BPM Atrial Rate : 060 BPM P-R Int : 392 ms QRS Dur : 096 ms QT Int : 410 ms P-R-T Axes : 005 061 -13 degrees QTc Int : 410 ms Atrial-paced rhythm with prolonged AV conduction , ventricular sensed ABNORMAL ECG WHEN COMPARED WITH ECG OF 07-MAY-2019 13:45, NONSPECIFIC T WAVE ABNORMALITY, IMPROVED IN LATERAL LEADS Confirmed by Cleo Daniels ([id number]) on 05/08/2019 11:39:39 AM Referred By: Confirmed By:Cleo Daniels
--- NOTE | 2019-05-08 11:59 | PN ---
Progress Note, Physician History of Present Illness: stable no issues c/o of pain - Current Medication List Current Medications: Active Medications Acetaminophen (Tylenol -) 1,000 mg PO TID PRN PRN Reason: PAIN LEVEL 4 - 6 Acetaminophen/Codeine Phosphate (Tylenol # 3 -) 1 tab PO Q4H PRN PRN Reason: PAIN LEVEL 1-5 Aspirin (Asa -) 81 mg PO DAILY [facility] Atorvastatin Calcium (Lipitor -) 40 mg PO HS [facility] Last Admin: 05/07/19 21:59 Dose: 40 mg Bacitracin (Bacitracin -) 1 applic TP DAILY [facility] Cholecalciferol (Vitamin D3 -) 2,500 unit PO DAILY [facility] Clindamycin HCl (Cleocin -) 300 mg PO Q6HPO [facility] Last Admin: 05/08/19 05:11 Dose: 300 mg Dorzolamide HCl (Trusopt 2%) 1 drop OU BID [facility] Last Admin: 05/07/19 23:31 Dose: 1 drop Furosemide (Lasix -) 20 mg PO DAILY [facility] Heparin Sodium (Porcine) (Heparin -) 5,000 unit SQ TID [facility] Last Admin: 05/08/19 05:11 Dose: 5,000 unit Insulin Aspart (Novolog Vial Sliding Scale -) 1 vial SQ [facility]; Protocol Last Admin: 05/08/19 06:45 Dose: Not Given Latanoprost (Xalatan 0.005% Eye Drops -) 1 drop OU [facility] Last Admin: 05/07/19 23:00 Dose: 1 drop Levothyroxine Sodium (Synthroid -) 25 mcg PO DAILY@0700 [facility] Last Admin: 05/08/19 06:40 Dose: 25 mcg Losartan Potassium (Cozaar -) 50 mg PO DAILY [facility] Last Admin: 05/08/19 09:57 Dose: 50 mg Metoprolol Succinate (Toprol Xl -) 25 mg PO DAILY [facility] Last Admin: 05/08/19 09:57 Dose: 25 mg Nortriptyline HCl (Pamelor -) 10 mg PO BID [facility] Last Admin: 05/07/19 22:32 Dose: 10 mg Jmhbz-5-Bhap Ethyl Esters (Lovaza -) 1 gm PO BID [facility] Last Admin: 05/07/19 22:32 Dose: 1 gm Pregabalin (Lyrica -) 75 mg PO BID [facility] Last Admin: 05/07/19 22:34 Dose: 75 mg Timolol Maleate (Timoptic 0.5%) 1 drop OU BID [facility] Last Admin: 05/07/19 23:31 Dose: 1 drop - Objective Vital Signs: Vital Signs Temperature 97.7 F 05/08/19 08:05 Pulse Rate 59 L 05/08/19 08:05 Respiratory Rate 20 05/08/19 08:05 Blood Pressure 137/67 05/08/19 08:05 O2 Sat by Pulse Oximetry (%) 99 05/07/19 21:00 Constitutional: Yes: No Distress, Calm Cardiovascular: Yes: S1, S2 Respiratory: Yes: Regular, CTA Bilaterally Gastrointestinal: Yes: Normal Bowel Sounds, Soft Musculoskeletal: Yes: WNL Extremities: Yes: Other Wound/Incision: Yes: Dressing Dry and Intact Neurological: Yes: Alert, Oriented Psychiatric: Yes: Alert, Oriented Labs: CBC, BMP 05/08/19 06:26 05/08/19 06:26 INR, PTT INR 0.88 (0.83-1.09) 05/03/19 17:07 Assessment/Plan 78 year old male with a past medical history of HTN, HLD, pacemaker (after cardiac arrest 02/12), corinary artery bypass graft, prediabetes, gout, hypothyroidism admitted for cellulitis of the great toe. Cellulitis Gout HTN HLD Hypothyrodism DM plan abx wound care rest as per the team
--- NOTE | 2019-05-08 12:03 | PN ---
Progress Note, Physician - Current Medication List Current Medications: Active Medications Acetaminophen (Tylenol -) 1,000 mg PO TID PRN PRN Reason: PAIN LEVEL 4 - 6 Acetaminophen/Codeine Phosphate (Tylenol # 3 -) 1 tab PO Q4H PRN PRN Reason: PAIN LEVEL 1-5 Aspirin (Asa -) 81 mg PO DAILY [facility] Atorvastatin Calcium (Lipitor -) 40 mg PO HS [facility] Last Admin: 05/07/19 21:59 Dose: 40 mg Bacitracin (Bacitracin -) 1 applic TP DAILY [facility] Cholecalciferol (Vitamin D3 -) 2,500 unit PO DAILY [facility] Clindamycin HCl (Cleocin -) 300 mg PO Q6HPO [facility] Last Admin: 05/08/19 05:11 Dose: 300 mg Dorzolamide HCl (Trusopt 2%) 1 drop OU BID [facility] Last Admin: 05/07/19 23:31 Dose: 1 drop Furosemide (Lasix -) 20 mg PO DAILY [facility] Heparin Sodium (Porcine) (Heparin -) 5,000 unit SQ TID [facility] Last Admin: 05/08/19 05:11 Dose: 5,000 unit Insulin Aspart (Novolog Vial Sliding Scale -) 1 vial SQ [facility]; Protocol Last Admin: 05/08/19 06:45 Dose: Not Given Latanoprost (Xalatan 0.005% Eye Drops -) 1 drop OU [facility] Last Admin: 05/07/19 23:00 Dose: 1 drop Levothyroxine Sodium (Synthroid -) 25 mcg PO DAILY@0700 [facility] Last Admin: 05/08/19 06:40 Dose: 25 mcg Losartan Potassium (Cozaar -) 50 mg PO DAILY [facility] Last Admin: 05/08/19 09:57 Dose: 50 mg Metoprolol Succinate (Toprol Xl -) 25 mg PO DAILY [facility] Last Admin: 05/08/19 09:57 Dose: 25 mg Nortriptyline HCl (Pamelor -) 10 mg PO BID [facility] Last Admin: 05/07/19 22:32 Dose: 10 mg Gmrcy-1-Mbxm Ethyl Esters (Lovaza -) 1 gm PO BID [facility] Last Admin: 05/07/19 22:32 Dose: 1 gm Pregabalin (Lyrica -) 75 mg PO BID [facility] Last Admin: 05/07/19 22:34 Dose: 75 mg Timolol Maleate (Timoptic 0.5%) 1 drop OU BID [facility] Last Admin: 05/07/19 23:31 Dose: 1 drop - Objective Vital Signs: Vital Signs Temperature 97.7 F 05/08/19 08:05 Pulse Rate 59 L 05/08/19 08:05 Respiratory Rate 05/08/19 08:05 Blood Pressure 137/67 05/08/19 08:05 O2 Sat by Pulse Oximetry (%) 99 05/07/19 21:00 Labs: CBC, BMP 05/08/19 06:26 05/08/19 06:26 INR, PTT INR 0.88 (0.83-1.09) 05/03/19 17:07
--- NOTE | 2019-05-08 13:16 | PN ---
Teaching Attending Note Name of Resident: Leo Cruz ATTENDING PHYSICIAN STATEMENT I saw and evaluated the patient. I reviewed the resident's note and discussed the case with the resident. I agree with the resident's findings and plan as documented. Seen and examined; please see resident note for further historical information. I personally verified all cordon historical information and exam findings. Personally interpreted all imaging and diagnostics and reviewed appropriate consults. I reviewed all labs and vital signs as per resident note and EMR as documented. I agree with the above assessment and plan unless supplemented by myself in the following. Chest pain; XF to telemetry. Discussed with Dr. Steen who is covering for Dr. Mueller. Less likely ACS but will continue to monitor. 10 item review of systems completed and is negative aside from as discussed in the subjective data in my own/the resident documentation. VS, labs, imaging reviewed NAD, AAO, resting comfortably in bed. RRR s1/2 no mgr Normal muscle tone, moves all 5 extremities with normal apparent strength Neck is supple, trachea midline, no adama LN Lungs CTAB with sym expansion NT ND +BS no adama organomegaly CN2-12 wnl; no FND NC AT EOMI PERRLA Normal mood, appropriate behavior, euthymic affect No skin breakdown or rashes noted. Pulses remain dopplerable, dressing remains clean dry and intact with no surrounding cellulitis Assessment and plan: Transfer to [facility] and r/o ACS; pending XF to [facility] Problems include: -PAD with arterial ulcer, pending XF for angio. Family desires to pursue care at [facility] due to continuity issues as well as concerns as he coded his last time -Chest Pain-r/o unstable angina, consulted CV and defer to their service for need for ST. EKG with precordial lead notes discussed; troponin is negative and I will obtain an additional value. -Hx Gout; hold alopurinol. PRN APAP, colchicine. Avoid NSAIDs given comorbidities -Hx CAD -S/P PPM Full Code Dispo: XF to [facility].
--- NOTE | 2019-05-08 13:23 | PN ---
Teaching Attending Note Name of Resident: Leo Anthony Seen and examined; please see resident note for further historical information. I personally verified all cordon historical information and exam findings. Personally interpreted all imaging and diagnostics and reviewed appropriate consults. I reviewed all labs and vital signs as per resident note and EMR as documented. I agree with the above assessment and plan unless supplemented by myself in the following. Seen and examined today, pending transfer to [place]. Discussed with cardiology who the resident indicates to me as found accepting physician, is patient's ongoing care physician. Furthermore, patient is currently chest pain- free. This will be discussed with vascular surgery and transfer has been initiated. Defer to cardiology for need for preprocedural stress test. 10 item review of systems completed and is negative aside from as discussed in the subjective data in my own/the resident documentation. VS, labs, imaging reviewed NAD, AAO, resting comfortably in bed. RRR s1/2 no mgr Normal muscle tone, moves all 5 extremities with normal apparent strength Neck is supple, trachea midline, no adama LN Lungs CTAB with sym expansion NT ND +BS no adama organomegaly CN2-12 wnl; no FND NC AT EOMI PERRLA Normal mood, appropriate behavior, euthymic affect No skin breakdown or rashes noted. Pulses remain dopplerable, dressing remains clean dry and intact with no surrounding cellulitis Assessment and plan: Troponins have been negative, EKG is noted, he was transferred telemetry yesterday due to chest pain. Seen by Dr. Steen yesterday and Dr. Mueller today. Appreciate expert recommendations. Problems include: -PAD with arterial ulcer, pending XF for angio. Family desires to pursue care at [facility] due to continuity issues as well as concerns as he coded his last time -Chest Pain-r/o unstable angina, consulted CV and defer to their service for need for ST. EKG with precordial lead notes discussed; troponin is negative and I will obtain an additional value. -Hx Gout; hold alopurinol. PRN APAP, colchicine. Avoid NSAIDs given comorbidities -Hx CAD -S/P PPM Full Code Dispo: XF to [facility].
[2019-05-08] MEDS: PREGABALIN 75 MG CAPSULE PO SCH ×2 (13:57→22:51)
[2019-05-08] MEDS: ASPIRIN 81 MG CHEWABLE TABLETS PO SCH (13:57)
[2019-05-08] MEDS: CHOLECALCIFEROL (VIT D3) 1,000 UNIT (25 MCG) TABLET PO SCH (13:57)
[2019-05-08] MEDS: FUROSEMIDE 20 MG TABLET (FP) PO SCH (13:57)
[2019-05-08] MEDS: OMEGA-3 ACID ETHYL ESTERS (FATTY-ACIDS) 1 GM CAPSULE (FP) PO SCH ×2 (13:57→22:50)
[2019-05-08] MEDS: BACITRACIN 15 GM TUBE TOPICAL OINTMENT TP SCH (13:59)
[2019-05-08] MEDS: NORTRIPTYLINE HCL 10 MG CAPSULE PO SCH ×2 (14:00→22:51)
[2019-05-08] MEDS ORDERED: amLODIPine BESYLATE 5 MG TABLET (FP) PO PRN (14:01)
[2019-05-08] MEDS ORDERED: NITROGLYCERIN SUBLINGUAL 1/150 0.4 MG TAB SL PRN (14:15)
--- NOTE | 2019-05-08 15:49 | PN ---
Progress Note (short form) - Note Progress Note: FUV right foot. Pt complains of overnight chest pain. No pain right now. +dry wound 4th toe left, -drainage, -cellulitis, -mal odor, wound 4th toe chest pain pvd Stress test in am. Dry sterile dressing to wound 4th toe right. Will follow. Cardiology on case. Read and appreciated medicine note.
[2019-05-08] MEDS: DORZOLAMIDE 2% HCL OPHTHALMIC SOLUTION 10 ML BOTTLE OU SCH ×2 (17:11→22:54)
[2019-05-08] MEDS: TIMOLOL 0.5% OPHTHALMIC SOL 5 ML BOTTLE OU SCH ×2 (17:12→22:55)
--- NOTE | 2019-05-08 17:26 | PN ---
Physical Exam: SUBJECTIVE: Patient seen and examined. Reports chest pains overnight, lasting 40 mins. Pt is afebrile. denies f/c/n/v/d/sob, cp OBJECTIVE: Vital Signs Period Temp Pulse Resp BP Sys/Tillman Pulse Ox Last 24 Hr 97.2 F-97.8 F 59-68 18-20 137-180/66-94 99 GENERAL: Awake, alert, and fully oriented, in no acute distress. EYES: Pupils equal, round and reactive to light, extraocular movements intact, sclera anicteric, conjunctiva clear. EARS, NOSE, THROAT: Oropharynx clear without exudates. Moist mucous membranes. NECK: Normal range of motion, supple without lymphadenopathy, JVD. LUNGS: Breath sounds equal, clear to auscultation bilaterally. No wheezes, and no crackles. No accessory muscle use. HEART: Regular rate and rhythm, normal S1 and S2 with prominent systolic ejection murmur. ABDOMEN: Soft, nontender, not distended, normoactive bowel sounds, no guarding, no rebound, no masses. LOWER EXTREMITIES: non-palpable pulses, warm, well-perfused. No calf tenderness. No peripheral edema. NEUROLOGICAL: Cranial nerves II-XII intact. 5/5 muscle strength upper and lower extremities bilaterally. SKIN: Noted open wound on the R 4th toe extending around the circumference of the toe. Dressed. Laboratory Results - last 24 hr CBC,CMP WBC 5.7 K/mm3 (4.0-10.0) 05/08/19 06:26 RBC 3.93 M/mm3 (4.00-5.60) L 05/08/19 06:26 Hgb 12.3 GM/dL (11.7-16.9) 05/08/19 06:26 Hct 36.7 % (35.4-49) 05/08/19 06:26 MCV 93.4 fl (80-96) 05/08/19 06:26 MCH 31.4 pg (25.7-33.7) 05/08/19 06:26 MCHC 33.6 g/dl (32.0-35.9) 05/08/19 06:26 RDW 12.9 % (11.9-15.9) 05/08/19 06:26 Plt Count 109 K/MM3 (134-434) L 05/08/19 06:26 MPV 11.1 fl (7.5-11.1) 05/08/19 06:26 Absolute Neuts (auto) 3.6 K/mm3 (1.5-8.0) 05/05/19 08:27 Neutrophils % 61.4 % (42.8-82.8) 05/05/19 08:27 Lymphocytes % 26.8 % (8-40) D 05/05/19 08:27 Monocytes % 7.2 % (3.8-10.2) 05/05/19 08:27 Eosinophils % 3.4 % (0-4.5) 05/05/19 08:27 Basophils % 1.2 % (0-2.0) 05/05/19 08:27 Nucleated RBC % 0 % (0-0) 05/05/19 08:27 ESR 9 mm/hr (0-20) 05/04/19 05:40 Sodium 133 mmol/L (136-145) L 05/08/19 06:26 Potassium 4.4 mmol/L (3.5-5.1) 05/08/19 06:26 Chloride 101 mmol/L (98-107) 05/08/19 06:26 Carbon Dioxide 26 mmol/L (21-32) 05/08/19 06:26 Anion Gap 6 MMOL/L (8-16) L 05/08/19 06:26 BUN 13.6 mg/dL (7-18) 05/08/19 06:26 Creatinine 0.8 mg/dL (0.55-1.3) 05/08/19 06:26 Est GFR (CKD-EPI)AfAm 97.78 05/08/19 06:26 Est GFR (CKD-EPI)NonAf 84.37 05/08/19 06:26 POC Glucometer 94 UNITS (80-120) 05/08/19 12:45 Random Glucose 123 mg/dL (74-106) H 05/08/19 06:26 Hemoglobin A1c % 6.8 % (4.2-6.3) H 05/07/19 15:10 Uric Acid 5.2 mg/dL (2.6-7.2) 05/04/19 05:40 Calcium 9.0 mg/dL (8.5-10.1) 05/08/19 06:26 Phosphorus 3.8 mg/dL (2.5-4.9) 05/06/19 01:02 Magnesium 2.1 mg/dL (1.8-2.4) 05/04/19 05:40 Total Bilirubin 0.4 mg/dL (0.2-1) 05/08/19 06:26 AST 92 U/L (15-37) H 05/08/19 06:26 ALT 122 U/L (13-61) H 05/08/19 06:26 Alkaline Phosphatase 44 U/L (45-117) L 05/08/19 06:26 Creatine Kinase 68 U/L (26-308) 05/08/19 01:45 CK-MB (CK-2) 1.7 ng/mL (0.5-3.6) 05/06/19 01:02 Troponin I < 0.02 ng/ml (0.00-0.05) 05/08/19 13:39 C-Reactive Protein < 0.3 MG/DL (0.00-0.3) 05/04/19 05:40 Total Protein 6.9 g/dl (6.4-8.2) 05/08/19 06:26 Albumin 3.5 g/dl (3.4-5.0) 05/08/19 06:26 Triglycerides 499 mg/dL (0-150) H 05/07/19 15:10 Cholesterol 159 mg/dL (50-200) 05/07/19 15:10 Total LDL Cholesterol 65 mg/dL (5-100) 05/07/19 15:10 HDL Cholesterol 62 mg/dL (40-60) H 05/07/19 15:10 TSH 6.13 uIU/ml (0.358-3.74) H 05/04/19 05:40 Free T4 1.12 ng/dl (0.76-1.16) 05/04/19 05:40 Active Medications Generic Name Dose Route Start Last Admin Trade Name Freq PRN Reason Stop Dose Admin Acetaminophen 1,000 mg 05/07/19 15:35 Tylenol - PO TID PRN PAIN LEVEL 4 - 6 Acetaminophen/Codeine Phosphate 1 tab 05/07/19 15:35 Tylenol # 3 - PO Q4H PRN PAIN LEVEL 1-5 Aspirin 81 mg 05/08/19 10:00 05/08/19 13:57 Asa - PO 81 mg DAILY ARIEL Administration Atorvastatin Calcium 40 mg 05/07/19 22:00 05/07/19 21:59 Lipitor - PO 40 mg HS ARIEL Administration Bacitracin 1 applic 05/08/19 10:00 05/08/19 13:59 Bacitracin - TP 1 applic DAILY ARIEL Administration Cholecalciferol 2,500 unit 05/08/19 10:00 05/08/19 13:57 Vitamin D3 - PO 2,500 unit DAILY ARIEL Administration Clindamycin HCl 300 mg 05/07/19 18:00 05/08/19 17:12 Cleocin - PO 300 mg Q6HPO ARIEL Administration Dorzolamide HCl 1 drop 05/07/19 22:00 05/08/19 17:11 Trusopt 2% OU 1 drop BID ARIEL Administration Furosemide 20 mg 05/08/19 10:00 05/08/19 13:57 Lasix - PO 20 mg DAILY ARIEL Administration Heparin Sodium (Porcine) 5,000 unit 05/07/19 22:00 05/08/19 14:06 Heparin - SQ 5,000 unit TID ARIEL Administration Insulin Aspart 1 vial 05/07/19 16:30 05/08/19 12:47 Novolog Vial Sliding Scale - SQ Not Given ACHS [facility] Protocol Latanoprost 1 drop 05/07/19 22:00 05/07/19 23:00 Xalatan 0.005% Eye Drops - OU 1 drop HS ARIEL Administration Levothyroxine Sodium 25 mcg 05/08/19 07:00 05/08/19 06:40 Synthroid - PO 25 mcg DAILY@0700 ARIEL Administration Losartan Potassium 50 mg 05/08/19 10:00 05/08/19 09:57 Cozaar - PO 50 mg DAILY ARIEL Administration Metoprolol Succinate 50 mg 05/08/19 22:00 Toprol Xl - PO DAILY [facility] Nitroglycerin 0.4 mg 05/08/19 14:15 Nitrostat - SL Q4H PRN PAIN LEVEL 7 - 10 Nortriptyline HCl 10 mg 05/07/19 22:00 05/08/19 14:00 Pamelor - PO 10 mg BID ARIEL Administration Flidb-4-Sinl Ethyl Esters 1 gm 05/07/19 22:00 05/08/19 13:57 Lovaza - PO 1 gm BID ARIEL Administration Pregabalin 75 mg 05/07/19 22:15 05/08/19 13:57 Lyrica - PO 75 mg BID ARIEL Administration Timolol Maleate 1 drop 05/07/19 22:00 05/08/19 17:12 Timoptic 0.5% OU 1 drop BID ARIEL Administration ASSESSMENT/PLAN: 78 y/o male with a past medical history of HTN, HLD, pacemaker (after cardiac arrest 02/12), coronary artery bypass graft, prediabetes, gout, hypothyroidism admitted for cellulitis of the Right 4th toe ulcer #Cellulitis- Right 4th toe ulcer no osteomyelitis on x ray Pacemaker card under investigation to see if its MRI compatible cont Clindamycin #Chest pain 40 mins as per pt EKG- shows new ST elevation only on 1 lead Cardiology consulted- Discussed with Dr. Beal, Fany/Stress test ordered for tomorrow NPO after MN ASA, SL Nitroglycerine #PAD As per Dr. Ponce- discussed with family the need for intervention, family leaning towards procedure in [facility] Dr. Ponce agrees with plan to f/u outpt for Angio/stents #Gout continue home allopurinol #HTN home losartan and metoprolol titrated up to 50mg Control BP adequately #HLD continue home atorvastatin #Hypothyrodism continue home Synthroid #DM BGM ISS #DVT PPx heparin sq FEN no standing fluids, encourage PO intake monitor lytes diabetic diet Dispo: control pain, SL nitro if chest pain, adequate BP control, NPO after night Visit type - Emergency Visit Emergency Visit: Yes ED Registration Date: 05/03/19 Care time: The patient presented to the Emergency Department on the above date and was hospitalized for further evaluation of their emergent condition. - New Patient This patient is new to me today: Yes Date on this admission: 05/08/19 - Critical Care Critical Care patient: No - Discharge Referral Referred to [facility] Med P.C.: No ATTENDING PHYSICIAN STATEMENT I saw and evaluated the patient. I reviewed the resident's note and discussed the case with the resident. I agree with the resident's findings and plan as documented. SUBJECTIVE: OBJECTIVE: ASSESSMENT AND PLAN:
[2019-05-08] MEDS: ATORVASTATIN CA 40 MG TABLET (FP) PO SCH (22:51)
[2019-05-08] MEDS: LATANOPROST 0.005% OPHTH SOLN 2.5ML BOTTLE OU SCH (22:54)
[2019-05-09] MEDS: HEPARIN NA (PORCINE) 5,000 UNITS/ML 1ML VIAL SQ SCH ×2 (06:33→14:08)
[2019-05-09] MEDS: CLINDAMYCIN HCL 150 MG CAPSULE (FP) PO SCH ×3 (06:33→17:29)
[2019-05-09] MEDS: LEVOTHYROXINE NA 25 MCG TABLET (FP) PO SCH (06:34)
[2019-05-09] MEDS: INSULIN SLIDING SCALE (NOVOLOG) 1 VIAL SQ SCH ×3 (06:34→17:28)
[2019-05-09 07:06] LABS: HEMATOCRIT 39.7 % (35.4-49); HEMOGLOBIN 13.3 GM/dL (11.7-16.9); MCH 31.5 pg (25.7-33.7); MCHC 33.4 g/dl (32.0-35.9); MEAN CELL VOLUME 94.3 fl (80-96); MEAN PLT VOLUME 10.8 fl (7.5-11.1); PLATELET COUNT 101 K/MM3 (134-434); RBC 4.21 M/mm3 (4.00-5.60); RDW 13.6 % (11.9-15.9); WHITE BLOOD COUNT 4.5 K/mm3 (4.0-10.0)
[2019-05-09 07:31] LABS: ALBUMIN 3.5 g/dl (3.4-5.0); BILIRUBIN,TOTAL 1.4 mg/dL (0.2-1); BLOOD UREA NITROGEN 13.4 mg/dL (7-18); CALCIUM 9.2 mg/dL (8.5-10.1); CREATININE 0.8 mg/dL (0.55-1.3); MAGNESIUM 2.1 mg/dL (1.8-2.4); PHOSPHOROUS 3.4 mg/dL (2.5-4.9); POTASSIUM 4.5 mmol/L (3.5-5.1); TOT PROT 7.2 g/dl (6.4-8.2)
[2019-05-09] MEDS ORDERED: INSULIN SLIDING SCALE (NOVOLOG) 1 VIAL SQ ONE (07:31)
[2019-05-09] MEDS ORDERED: REGADENOSON 0.4 MG/5 ML PRE-FILLED SYRINGE IVPUSH ONE ×2 (10:06→10:15)
--- NOTE | 2019-05-09 10:14 | PN ---
Progress Note, Physician Chief Complaint: Events noted Episode of chest pain this morning History of Present Illness: Patient was seen and examined. Awake and alert. Chart was reviewed Denies shortness of breath or palpitations Troponin negative - Current Medication List Current Medications: Active Medications Acetaminophen (Tylenol -) 1,000 mg PO TID PRN PRN Reason: PAIN LEVEL 4 - 6 Last Admin: 05/08/19 17:45 Dose: 1,000 mg Acetaminophen/Codeine Phosphate (Tylenol # 3 -) 1 tab PO Q4H PRN PRN Reason: PAIN LEVEL 1-5 Aspirin (Asa -) 81 mg PO DAILY [facility] Last Admin: 05/08/19 13:57 Dose: 81 mg Atorvastatin Calcium (Lipitor -) 40 mg PO HS [facility] Last Admin: 05/08/19 22:51 Dose: 40 mg Bacitracin (Bacitracin -) 1 applic TP DAILY [facility] Last Admin: 05/08/19 13:59 Dose: 1 applic Cholecalciferol (Vitamin D3 -) 2,500 unit PO DAILY [facility] Last Admin: 05/08/19 13:57 Dose: 2,500 unit Clindamycin HCl (Cleocin -) 300 mg PO Q6HPO [facility] Last Admin: 05/09/19 06:33 Dose: 300 mg Dorzolamide HCl (Trusopt 2%) 1 drop OU BID [facility] Last Admin: 05/08/19 22:54 Dose: 1 drop Furosemide (Lasix -) 20 mg PO DAILY [facility] Last Admin: 05/08/19 13:57 Dose: 20 mg Heparin Sodium (Porcine) (Heparin -) 5,000 unit SQ TID [facility] Last Admin: 05/09/19 06:33 Dose: 5,000 unit Insulin Aspart (Novolog Vial Sliding Scale -) 1 vial SQ ACHS [facility]; Protocol Last Admin: 05/09/19 06:34 Dose: Not Given Latanoprost (Xalatan 0.005% Eye Drops -) 1 drop OU HS [facility] Last Admin: 05/08/19 22:54 Dose: 1 drop Levothyroxine Sodium (Synthroid -) 25 mcg PO DAILY@0700 [facility] Last Admin: 05/09/19 06:34 Dose: 25 mcg Losartan Potassium (Cozaar -) 50 mg PO DAILY [facility] Last Admin: 05/08/19 09:57 Dose: 50 mg Metoprolol Succinate (Toprol Xl -) 50 mg PO DAILY [facility] Last Admin: 05/08/19 22:53 Dose: 50 mg Nitroglycerin (Nitrostat -) 0.4 mg SL Q4H PRN PRN Reason: PAIN LEVEL 7 - 10 Last Admin: 05/09/19 07:50 Dose: 0.4 mg Nortriptyline HCl (Pamelor -) 10 mg PO BID [facility] Last Admin: 05/08/19 22:51 Dose: 10 mg Acsgp-7-[id number] Ethyl Esters (Lovaza -) 1 gm PO BID [facility] Last Admin: 05/08/19 22:50 Dose: 1 gm Pregabalin (Lyrica -) 75 mg PO BID [facility] Last Admin: 05/08/19 22:51 Dose: 75 mg Regadenoson (Lexiscan) 0.4 mg IVPUSH ONCE ONE Stop: 05/09/19 10:16 Timolol Maleate (Timoptic 0.5%) 1 drop OU BID [facility] Last Admin: 05/08/19 22:55 Dose: 1 drop - Objective Vital Signs: Vital Signs Temperature 97.5 F L 05/09/19 06:12 Pulse Rate 60 05/09/19 06:12 Respiratory Rate 18 05/09/19 06:12 Blood Pressure 148/77 05/09/19 06:12 O2 Sat by Pulse Oximetry (%) 99 05/08/19 21:00 Eyes: Yes: PERRL HENT: Yes: Atraumatic Neck: Yes: Supple Cardiovascular: Yes: Regular Rate and Rhythm, S1, S2 Respiratory: Yes: CTA Bilaterally Gastrointestinal: Yes: Normal Bowel Sounds, Soft. No: Tenderness Edema: No Additional Findings/Remarks: - Review of Systems Constitutional: denies: Chills, Fever Cardiovascular: reports: Chest Pain. denies: Palpitations, Shortness of Breath Respiratory: denies: Cough, Hemoptysis, Orthopnea, PND, SOB, SOB on Exertion Gastrointestinal: denies: Abdominal Pain, Constipation, Diarrhea, Melena, Nausea , Rectal Bleeding, Vomiting Genitourinary: denies: Dysuria, Hematuria Musculoskeletal: denies: Back Pain, Joint Pain Neurological: denies: Dizziness, Headache, Seizure, Syncope Labs: CBC, BMP 05/09/19 06:35 05/09/19 06:35 INR, PTT INR 0.88 (0.83-1.09) 05/03/19 17:07 Laboratory Results - last 24 hr 05/08/19 05/08/19 05/08/19 12:45 13:39 17:14 WBC RBC Hgb Hct MCV MCH MCHC RDW Plt Count MPV Sodium Potassium Chloride Carbon Dioxide Anion Gap BUN Creatinine Est GFR (CKD-EPI)AfAm Est GFR (CKD-EPI)NonAf POC Glucometer 94 123 Random Glucose Calcium Phosphorus Magnesium Total Bilirubin AST ALT Alkaline Phosphatase Creatine Kinase Troponin I < 0.02 Total Protein Albumin 05/08/19 05/09/19 05/09/19 22:47 06:35 06:35 WBC 4.5 RBC 4.21 Hgb 13.3 Hct 39.7 MCV 94.3 MCH 31.5 MCHC 33.4 RDW 13.6 Plt Count 101 L MPV 10.8 Sodium 137 Potassium 4.5 Chloride 103 Carbon Dioxide 27 Anion Gap 6 L BUN 13.4 Creatinine 0.8 Est GFR (CKD-EPI)AfAm 97.78 Est GFR (CKD-EPI)NonAf 84.37 POC Glucometer 113 Random Glucose 120 H Calcium 9.2 Phosphorus 3.4 Magnesium 2.1 Total Bilirubin 1.4 H AST 60 H ALT 113 H Alkaline Phosphatase 48 Creatine Kinase Cancelled Troponin I Cancelled Total Protein 7.2 Albumin 3.5 05/09/19 05/09/19 06:38 09:39 WBC RBC Hgb Hct MCV MCH MCHC RDW Plt Count MPV Sodium Potassium Chloride Carbon Dioxide Anion Gap BUN Creatinine Est GFR (CKD-EPI)AfAm Est GFR (CKD-EPI)NonAf POC Glucometer 114 Random Glucose Calcium Phosphorus Magnesium Total Bilirubin AST ALT Alkaline Phosphatase Creatine Kinase 58 Troponin I < 0.02 Total Protein Albumin Problem List - Problems (1) CAD (coronary artery disease) Code(s): I25.10 - ATHSCL HEART DISEASE OF [place] CORONARY ARTERY W/O ANG PCTRS Qualifiers: Coronary Disease-Associated Artery/Lesion type: [place] artery [place] vs. transplanted heart: [place] heart Associated angina: without angina Qualified Code(s): I25.10 - Atherosclerotic heart disease of [place] coronary artery without angina pectoris (2) Chest pain Code(s): R07.9 - CHEST PAIN, UNSPECIFIED (3) Hyperlipidemia associated with type 2 diabetes mellitus Code(s): E11.69 - TYPE 2 DIABETES MELLITUS WITH OTHER SPECIFIED COMPLICATION; E78.5 - HYPERLIPIDEMIA, UNSPECIFIED (4) Hypertensive heart disease Code(s): I11.9 - HYPERTENSIVE HEART DISEASE WITHOUT HEART FAILURE Qualifiers: Heart failure presence: without heart failure Qualified Code(s): I11.9 - Hypertensive heart disease without heart failure (5) PAD (peripheral artery disease) Code(s): I73.9 - PERIPHERAL VASCULAR DISEASE, UNSPECIFIED (6) S/P CABG (coronary artery bypass graft) Code(s): Z95.1 - PRESENCE OF AORTOCORONARY BYPASS GRAFT Assessment/Plan 1. PAD with obstructive bilateral SFA lesions, history of unsuccessful left SFA [employer] and cellulitis/right 4th toe ulcer 2. 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 Chest pain with underlying CAD s/p CABG, angina pectoris 4. HTN 5. Hyperlipidemia 6. Gout 7. Hypothyroidism 8. Type 2 DM PLAN: 1. Dr. Calderon of [facility] to see him in office for possible outpatient LE angiogram 2. Continue ASA 81 mg QD, Losartan 50 mg QD, Toprol XL 50 mg QD and Lipitor 40 mg QHS 3. Lexican Myoview to evaluate severity of CAD Further plans are to follow Rex Han MD
[2019-05-09] MEDS ORDERED: AMINOPHYLLINE 250 MG/10 ML VIAL IVPUSH ONE ×2 (12:03→12:30)
[2019-05-09] MEDS ORDERED: AMINOPHYLLINE 250 MG/10 ML VIAL ONE (12:16)
[2019-05-09] MEDS ORDERED: SODIUM CHLORIDE 250 ML IV ONE (12:30)
[2019-05-09] MEDS: DORZOLAMIDE 2% HCL OPHTHALMIC SOLUTION 10 ML BOTTLE OU SCH (13:50)
[2019-05-09] MEDS: TIMOLOL 0.5% OPHTHALMIC SOL 5 ML BOTTLE OU SCH (13:51)
[2019-05-09] MEDS: ASPIRIN 81 MG CHEWABLE TABLETS PO SCH (14:09)
[2019-05-09] MEDS: FUROSEMIDE 20 MG TABLET (FP) PO SCH (14:10)
[2019-05-09] MEDS: PREGABALIN 75 MG CAPSULE PO SCH ×2 (14:10→21:06)
[2019-05-09] MEDS: LOSARTAN POTASSIUM 50 MG TABLET (FP) PO SCH (14:10)
[2019-05-09] MEDS: NORTRIPTYLINE HCL 10 MG CAPSULE PO SCH ×2 (14:11→21:06)
[2019-05-09] MEDS: OMEGA-3 ACID ETHYL ESTERS (FATTY-ACIDS) 1 GM CAPSULE (FP) PO SCH ×2 (14:11→21:06)
[2019-05-09] MEDS: CHOLECALCIFEROL (VIT D3) 1,000 UNIT (25 MCG) TABLET PO SCH (14:13)
--- NOTE | 2019-05-09 14:37 | EKG ---
Test Reason : Blood Pressure : / mmHG Vent. Rate : 060 BPM Atrial Rate : 625 BPM P-R Int : 000 ms QRS Dur : 178 ms QT Int : 476 ms P-R-T Axes : 000 -83 082 degrees QTc Int : 476 ms Ventricular-paced rhythm ABNORMAL ECG WHEN COMPARED WITH ECG OF 08-MAY-2019 01:18, ELECTRONIC VENTRICULAR PACEMAKER HAS REPLACED ELECTRONIC ATRIAL PACEMAKER Confirmed by MD Raf, Jaycob ([id number]) on 05/09/2019 2:37:03 PM Referred By: Confirmed By:Jaycob Carbone MD
--- NOTE | 2019-05-09 15:35 | PN ---
Teaching Attending Note Name of Resident: Leo Cruz ATTENDING PHYSICIAN STATEMENT I saw and evaluated the patient. I reviewed the resident's note and discussed the case with the resident. I agree with the resident's findings and plan as documented. SUBJECTIVE: Feels well, no further CP. No palpitations. No fever/chills OBJECTIVE: Afebrile, Hemodynamically Stable. Last Vital Signs Temp Pulse Resp BP Pulse Ox 97.9 F 68 18 142/78 99 05/09/19 14:00 05/09/19 14:00 05/09/19 14:00 05/09/19 14:00 05/09/19 09:00 HEENT - Atraumatic, Normocephalic. Heart - S1, S2, RRR Lungs - clear to auscultation Abdomen - soft, non-tender. Bowel Sounds normal. Extremities - R 4th toe ulcer infected, improvement in surrounding erythema. Extremities neurovascularly intact. Laboratory Results - last 24 hr 05/08/19 05/08/19 05/09/19 17:14 22:47 06:35 WBC 4.5 RBC 4.21 Hgb 13.3 Hct 39.7 MCV 94.3 MCH 31.5 MCHC 33.4 RDW 13.6 Plt Count 101 L MPV 10.8 Sodium Potassium Chloride Carbon Dioxide Anion Gap BUN Creatinine Est GFR (CKD-EPI)AfAm Est GFR (CKD-EPI)NonAf POC Glucometer 123 113 Random Glucose Calcium Phosphorus Magnesium Total Bilirubin AST ALT Alkaline Phosphatase Creatine Kinase Troponin I Total Protein Albumin 05/09/19 05/09/19 05/09/19 06:35 06:38 09:39 WBC RBC Hgb Hct MCV MCH MCHC RDW Plt Count MPV Sodium 137 Potassium 4.5 Chloride 103 Carbon Dioxide 27 Anion Gap 6 L BUN 13.4 Creatinine 0.8 Est GFR (CKD-EPI)AfAm 97.78 Est GFR (CKD-EPI)NonAf 84.37 POC Glucometer 114 Random Glucose 120 H Calcium 9.2 Phosphorus 3.4 Magnesium 2.1 Total Bilirubin 1.4 H AST 60 H ALT 113 H Alkaline Phosphatase 48 Creatine Kinase Cancelled 58 Troponin I Cancelled < 0.02 Total Protein 7.2 Albumin 3.5 05/09/19 13:48 WBC RBC Hgb Hct MCV MCH MCHC RDW Plt Count MPV Sodium Potassium Chloride Carbon Dioxide Anion Gap BUN Creatinine Est GFR (CKD-EPI)AfAm Est GFR (CKD-EPI)NonAf POC Glucometer 100 Random Glucose Calcium Phosphorus Magnesium Total Bilirubin AST ALT Alkaline Phosphatase Creatine Kinase Troponin I Total Protein Albumin Current Medications Generic Name Dose Route Start Last Admin Trade Name Freq PRN Reason Stop Dose Admin Acetaminophen 1,000 mg 05/07/19 15:35 05/08/19 17:45 Tylenol - PO 1,000 mg TID PRN Administration PAIN LEVEL 4 - 6 Acetaminophen/Codeine Phosphate 1 tab 05/07/19 15:35 Tylenol # 3 - PO Q4H PRN PAIN LEVEL 1-5 Aspirin 81 mg 05/08/19 10:00 05/09/19 14:09 Asa - PO 81 mg DAILY ARIEL Administration Atorvastatin Calcium 40 mg 05/07/19 22:00 05/08/19 22:51 Lipitor - PO 40 mg HS ARIEL Administration Bacitracin 1 applic 05/08/19 10:00 05/08/19 13:59 Bacitracin - TP 1 applic DAILY ARIEL Administration Cholecalciferol 2,500 unit 05/08/19 10:00 05/09/19 14:13 Vitamin D3 - PO 2,500 unit DAILY ARIEL Administration Clindamycin HCl 300 mg 05/07/19 18:00 05/09/19 14:09 Cleocin - PO 300 mg Q6HPO ARIEL Administration Dorzolamide HCl 1 drop 05/07/19 22:00 05/09/19 13:50 Trusopt 2% OU 1 drop BID ARIEL Administration Furosemide 20 mg 05/08/19 10:00 05/09/19 14:10 Lasix - PO 20 mg DAILY ARIEL Administration Heparin Sodium (Porcine) 5,000 unit 05/07/19 22:00 05/09/19 14:08 Heparin - SQ 5,000 unit TID ARIEL Administration Insulin Aspart 1 vial 05/07/19 16:30 05/09/19 13:50 Novolog Vial Sliding Scale - SQ Not Given ACHS [facility] Protocol Latanoprost 1 drop 05/07/19 22:00 05/08/19 22:54 Xalatan 0.005% Eye Drops - OU 1 drop HS ARIEL Administration Levothyroxine Sodium 25 mcg 05/08/19 07:00 05/09/19 06:34 Synthroid - PO 25 mcg DAILY@0700 ARIEL Administration Losartan Potassium 50 mg 05/08/19 10:00 05/09/19 14:10 Cozaar - PO 50 mg DAILY ARIEL Administration Metoprolol Succinate 50 mg 05/08/19 22:00 05/09/19 14:09 Toprol Xl - PO 50 mg DAILY ARIEL Administration Nitroglycerin 0.4 mg 05/08/19 14:15 05/09/19 07:50 Nitrostat - SL 0.4 mg Q4H PRN Administration PAIN LEVEL 7 - 10 Nortriptyline HCl 10 mg 05/07/19 22:00 05/09/19 14:11 Pamelor - PO 10 mg BID ARIEL Administration Jmcwg-3-Ezek Ethyl Esters 1 gm 05/07/19 22:00 05/09/19 14:11 Lovaza - PO 1 gm BID ARIEL Administration Pregabalin 75 mg 05/07/19 22:15 05/09/19 14:10 Lyrica - PO 75 mg BID ARIEL Administration Timolol Maleate 1 drop 05/07/19 22:00 05/09/19 13:51 Timoptic 0.5% OU 1 drop BID ARIEL Administration Home Medications Medication Instructions Recorded Cholecalciferol (Vitamin D3) 2,500 unit PO DAILY 05/03/19 [Vitamin D3] Dorzolamide HCl [Trusopt 2% -] 1 drop OU BID 05/03/19 Dorzolamide HCl/Timolol Maleat 1 drop OU BID 05/03/19 [Dorzolamide-Timolol Eye Drops] Furosemide [Lasix] 20 mg PO DAILY 05/03/19 Latanoprost 1 drop OU HS 05/03/19 Levothyroxine [Synthroid -] 25 mcg PO DAILY 05/03/19 Losartan Potassium 50 mg PO DAILY 05/03/19 Magnesium Oxide,Aspartate,Citr 400 mg PO HS 05/03/19 [Triple Magnesium Complex] Metformin HCl [Glucophage] 500 mg PO DAILY 05/03/19 Logan-3 Acid Ethyl Esters 1 gm PO BID 05/03/19 Ubidecarenone [Co Q-10] 200 mg PO DAILY 05/03/19 Mupirocin Cream [Bactroban 2% 1 applic TP BID 05/04/19 Cream -] Logan-3 Acid Ethyl Esters [Lovaza 1 gm PO BID 05/04/19 -] Alcohol Antiseptic Pads [Alcohol 1 each TP DAILY #100 med..pad 05/09/19 Swabs] Aspirin [ASA -] 81 mg PO DAILY #30 tab.chew 05/09/19 Atorvastatin Ca [Lipitor] 40 mg PO HS #30 tablet 05/09/19 Clindamycin [Cleocin -] 300 mg PO Q6H #16 capsule 05/09/19 Lancets/Blood Glucose Strips [Fora 1 each MC DAILY #50 combo..pkg 05/09/19 [id number] Strp-Lnct] Metoprolol Succinate [Toprol XL -] 50 mg PO DAILY #30 tab.sr.24h 05/09/19 Nitroglycerin Sublingual 0.4 mg SL Q4H PRN #42 tab 05/09/19 [Nitrostat -] Pen Needle, Diabetic [[place]] 1 each MC DAILY #50 dis.needle 05/09/19 Pregabalin [Lyrica -] 75 mg PO BID #30 capsule MDD 150 mg 05/09/19 Miscellaneous Medical Supply 1 each SQ ASDIR #1 kit 05/10/19 [Glucometer Device] ASSESSMENT AND PLAN: 78 year old male with history of DM 2, HTN, HLD, Hypothyroidism, s/p PPM, s/p Cardiac Arrest 02/12, CAD s/p CABG, Gout, admitted with infected R 4th toe ulcer. 1. Acute Cellulitis/Infected Ulcer R 4th toe No signs of OM on plain film. PPM preventing MRI Continue Clindamycin. ID to guide duration of Abx recommendations. 2. Recurrent Chest Pain, background Hx CAD s/p CABG NM Lexiscan negative Cotinue Aspirin, BB, ARB, Statin, NTG PRN. 3. PAD CT angiogram showed severe atherosclerotic disease in both LEs with segmental occlusion of SFA bilaterally. Evaluated by Dr. Ponce - recommendation for further work-up at [facility] by Dr. Solorzano. 4. HTN - Continue Losartan, Metoprolol. 5. HLD - continue Atorvastatin 6. Hypothyroidism - Continue Synthroid. 7. DM 2 with peripheral neuropathy Resume home medications on discharge. Continue Lyrica, Nortriptylline. 8. Hx Gout - previously on Colchicine and Prednisone. 9. Liver Nodule adjacent to GB 2.2x1.8cm. Elevated LFTs, improving. No acute findings on Abdo US. For out-patient GI follow up for further Ix, repeat LFTs next week. 10. Chronic Diastolic CHF - stable. Continue Lasix. DVT Px - Heparin SQ
[2019-05-09 16:00] LABS: BILIRUBIN,DIRECT 0.1 mg/dL (0.0-0.2)
[2019-05-09] MEDS: BACITRACIN 15 GM TUBE TOPICAL OINTMENT TP SCH (16:27)
--- NOTE | 2019-05-09 16:47 | PN ---
Progress Note, Physician - Current Medication List Current Medications: Active Medications Acetaminophen (Tylenol -) 1,000 mg PO TID PRN PRN Reason: PAIN LEVEL 4 - 6 Last Admin: 05/08/19 17:45 Dose: 1,000 mg Acetaminophen/Codeine Phosphate (Tylenol # 3 -) 1 tab PO Q4H PRN PRN Reason: PAIN LEVEL 1-5 Aspirin (Asa -) 81 mg PO DAILY [facility] Last Admin: 05/09/19 14:09 Dose: 81 mg Atorvastatin Calcium (Lipitor -) 40 mg PO HS [facility] Last Admin: 05/08/19 22:51 Dose: 40 mg Bacitracin (Bacitracin -) 1 applic TP DAILY [facility] Last Admin: 05/09/19 16:27 Dose: 1 applic Cholecalciferol (Vitamin D3 -) 2,500 unit PO DAILY [facility] Last Admin: 05/09/19 14:13 Dose: 2,500 unit Clindamycin HCl (Cleocin -) 300 mg PO Q6HPO [facility] Last Admin: 05/09/19 14:09 Dose: 300 mg Dorzolamide HCl (Trusopt 2%) 1 drop OU BID [facility] Last Admin: 05/09/19 13:50 Dose: 1 drop Furosemide (Lasix -) 20 mg PO DAILY [facility] Last Admin: 05/09/19 14:10 Dose: 20 mg Heparin Sodium (Porcine) (Heparin -) 5,000 unit SQ TID [facility] Last Admin: 05/09/19 14:08 Dose: 5,000 unit Insulin Aspart (Novolog Vial Sliding Scale -) 1 vial SQ [facility]; Protocol Last Admin: 05/09/19 13:50 Dose: Not Given Latanoprost (Xalatan 0.005% Eye Drops -) 1 drop OU [facility] Last Admin: 05/08/19 22:54 Dose: 1 drop Levothyroxine Sodium (Synthroid -) 25 mcg PO DAILY@0700 [facility] Last Admin: 05/09/19 06:34 Dose: 25 mcg Losartan Potassium (Cozaar -) 50 mg PO DAILY [facility] Last Admin: 05/09/19 14:10 Dose: 50 mg Metoprolol Succinate (Toprol Xl -) 50 mg PO DAILY [facility] Last Admin: 05/09/19 14:09 Dose: 50 mg Nitroglycerin (Nitrostat -) 0.4 mg SL Q4H PRN PRN Reason: PAIN LEVEL 7 - 10 Last Admin: 05/09/19 07:50 Dose: 0.4 mg Nortriptyline HCl (Pamelor -) 10 mg PO BID [facility] Last Admin: 05/09/19 14:11 Dose: 10 mg [place]-6-Yxld Ethyl Esters (Lovaza -) 1 gm PO BID [facility] Last Admin: 05/09/19 14:11 Dose: 1 gm Pregabalin (Lyrica -) 75 mg PO BID [facility] Last Admin: 05/09/19 14:10 Dose: 75 mg Timolol Maleate (Timoptic 0.5%) 1 drop OU BID [facility] Last Admin: 05/09/19 13:51 Dose: 1 drop - Objective Vital Signs: Vital Signs Temperature 97.9 F 05/09/19 14:00 Pulse Rate 68 05/09/19 14:00 Respiratory Rate 18 05/09/19 14:00 Blood Pressure 142/78 05/09/19 14:00 O2 Sat by Pulse Oximetry (%) 99 05/09/19 09:00 Labs: CBC, BMP 05/09/19 06:35 05/09/19 06:35 INR, PTT INR 0.88 (0.83-1.09) 05/03/19 17:07
--- NOTE | 2019-05-09 16:55 | DS ---
Physical Exam: SUBJECTIVE: Patient seen and examined. Reports chest pains overnight, lasting 40 mins. Pt is afebrile. denies f/c/n/v/d/sob, cp OBJECTIVE: Vital Signs Period Temp Pulse Resp BP Sys/Tillman Pulse Ox Last 24 Hr 97.5 F-97.9 F 60-68 16-18 131-148/65-78 99-99 PHYSICAL EXAM GENERAL: Awake, alert, and fully oriented, in no acute distress. EYES: Pupils equal, round and reactive to light, extraocular movements intact, sclera anicteric, conjunctiva clear. EARS, NOSE, THROAT: Oropharynx clear without exudates. Moist mucous membranes. NECK: Normal range of motion, supple without lymphadenopathy, JVD. LUNGS: Breath sounds equal, clear to auscultation bilaterally. No wheezes, and no crackles. No accessory muscle use. HEART: Regular rate and rhythm, normal S1 and S2 with prominent systolic ejection murmur. ABDOMEN: Soft, nontender, not distended, normoactive bowel sounds, no guarding, no rebound, no masses. LOWER EXTREMITIES: non-palpable pulses, warm, well-perfused. No calf tenderness. No peripheral edema. NEUROLOGICAL: Cranial nerves II-XII intact. 5/5 muscle strength upper and lower extremities bilaterally. SKIN: Noted open wound on the R 4th toe extending around the circumference of the toe. Dressed. LABS Laboratory Results - last 24 hr CBC,CMP WBC 4.5 K/mm3 (4.0-10.0) 05/09/19 06:35 RBC 4.21 M/mm3 (4.00-5.60) 05/09/19 06:35 Hgb 13.3 GM/dL (11.7-16.9) 05/09/19 06:35 Hct 39.7 % (35.4-49) 05/09/19 06:35 MCV 94.3 fl (80-96) 05/09/19 06:35 MCH 31.5 pg (25.7-33.7) 05/09/19 06:35 MCHC 33.4 g/dl (32.0-35.9) 05/09/19 06:35 RDW 13.6 % (11.9-15.9) 05/09/19 06:35 Plt Count 101 K/MM3 (134-434) L 05/09/19 06:35 MPV 10.8 fl (7.5-11.1) 05/09/19 06:35 Absolute Neuts (auto) 3.6 K/mm3 (1.5-8.0) 05/05/19 08:27 Neutrophils % 61.4 % (42.8-82.8) 05/05/19 08:27 Lymphocytes % 26.8 % (8-40) D 05/05/19 08:27 Monocytes % 7.2 % (3.8-10.2) 05/05/19 08:27 Eosinophils % 3.4 % (0-4.5) 05/05/19 08:27 Basophils % 1.2 % (0-2.0) 05/05/19 08:27 Nucleated RBC % 0 % (0-0) 05/05/19 08:27 ESR 9 mm/hr (0-20) 05/04/19 05:40 Sodium 137 mmol/L (136-145) 05/09/19 06:35 Potassium 4.5 mmol/L (3.5-5.1) 05/09/19 06:35 Chloride 103 mmol/L (98-107) 05/09/19 06:35 Carbon Dioxide 27 mmol/L (21-32) 05/09/19 06:35 Anion Gap 6 MMOL/L (8-16) L 05/09/19 06:35 BUN 13.4 mg/dL (7-18) 05/09/19 06:35 Creatinine 0.8 mg/dL (0.55-1.3) 05/09/19 06:35 Est GFR (CKD-EPI)AfAm 97.78 05/09/19 06:35 Est GFR (CKD-EPI)NonAf 84.37 05/09/19 06:35 POC Glucometer 139 UNITS (80-120) 05/09/19 17:27 Random Glucose 120 mg/dL (74-106) H 05/09/19 06:35 Hemoglobin A1c % 6.8 % (4.2-6.3) H 05/07/19 15:10 Uric Acid 5.2 mg/dL (2.6-7.2) 05/04/19 05:40 Calcium 9.2 mg/dL (8.5-10.1) 05/09/19 06:35 Phosphorus 3.4 mg/dL (2.5-4.9) 05/09/19 06:35 Magnesium 2.1 mg/dL (1.8-2.4) 05/09/19 06:35 Total Bilirubin 1.4 mg/dL (0.2-1) H 05/09/19 06:35 Direct Bilirubin 0.1 mg/dL (0.0-0.2) 05/09/19 06:35 AST 60 U/L (15-37) H 05/09/19 06:35 ALT 113 U/L (13-61) H 05/09/19 06:35 Alkaline Phosphatase 48 U/L (45-117) 05/09/19 06:35 Creatine Kinase 58 U/L (26-308) 05/09/19 09:39 CK-MB (CK-2) 1.7 ng/mL (0.5-3.6) 05/06/19 01:02 Troponin I < 0.02 ng/ml (0.00-0.05) 05/09/19 09:39 C-Reactive Protein < 0.3 MG/DL (0.00-0.3) 05/04/19 05:40 Total Protein 7.2 g/dl (6.4-8.2) 05/09/19 06:35 Albumin 3.5 g/dl (3.4-5.0) 05/09/19 06:35 Triglycerides 499 mg/dL (0-150) H 05/07/19 15:10 Cholesterol 159 mg/dL (50-200) 05/07/19 15:10 Total LDL Cholesterol 65 mg/dL (5-100) 05/07/19 15:10 HDL Cholesterol 62 mg/dL (40-60) H 05/07/19 15:10 TSH 6.13 uIU/ml (0.358-3.74) H 05/04/19 05:40 Free T4 1.12 ng/dl (0.76-1.16) 05/04/19 05:40 Current Medications Acetaminophen (Tylenol -) 1,000 mg PO TID PRN PRN Reason: PAIN LEVEL 4 - 6 Last Admin: 05/08/19 17:45 Dose: 1,000 mg Acetaminophen/Codeine Phosphate (Tylenol # 3 -) 1 tab PO Q4H PRN PRN Reason: PAIN LEVEL 1-5 Aspirin (Asa -) 81 mg PO DAILY [facility] Last Admin: 05/09/19 14:09 Dose: 81 mg Atorvastatin Calcium (Lipitor -) 40 mg PO HS [facility] Last Admin: 05/08/19 22:51 Dose: 40 mg Bacitracin (Bacitracin -) 1 applic TP DAILY [facility] Last Admin: 05/09/19 16:27 Dose: 1 applic Cholecalciferol (Vitamin D3 -) 2,500 unit PO DAILY [facility] Last Admin: 05/09/19 14:13 Dose: 2,500 unit Clindamycin HCl (Cleocin -) 300 mg PO Q6HPO [facility] Last Admin: 05/09/19 17:29 Dose: 300 mg Dorzolamide HCl (Trusopt 2%) 1 drop OU BID [facility] Last Admin: 05/09/19 13:50 Dose: 1 drop Furosemide (Lasix -) 20 mg PO DAILY [facility] Last Admin: 05/09/19 14:10 Dose: 20 mg Heparin Sodium (Porcine) (Heparin -) 5,000 unit SQ TID [facility] Last Admin: 05/09/19 14:08 Dose: 5,000 unit Insulin Aspart (Novolog Vial Sliding Scale -) 1 vial SQ [facility]; Protocol Last Admin: 05/09/19 17:28 Dose: Not Given Latanoprost (Xalatan 0.005% Eye Drops -) 1 drop OU [facility] Last Admin: 05/08/19 22:54 Dose: 1 drop Levothyroxine Sodium (Synthroid -) 25 mcg PO DAILY@0700 [facility] Last Admin: 05/09/19 06:34 Dose: 25 mcg Losartan Potassium (Cozaar -) 50 mg PO DAILY [facility] Last Admin: 05/09/19 14:10 Dose: 50 mg Metoprolol Succinate (Toprol Xl -) 50 mg PO DAILY [facility] Last Admin: 05/09/19 14:09 Dose: 50 mg Nitroglycerin (Nitrostat -) 0.4 mg SL Q4H PRN PRN Reason: PAIN LEVEL 7 - 10 Last Admin: 05/09/19 07:50 Dose: 0.4 mg Nortriptyline HCl (Pamelor -) 10 mg PO BID [facility] Last Admin: 05/09/19 14:11 Dose: 10 mg Makpx-6-Wljt Ethyl Esters (Lovaza -) 1 gm PO BID [facility] Last Admin: 05/09/19 14:11 Dose: 1 gm Pregabalin (Lyrica -) 75 mg PO BID [facility] Last Admin: 05/09/19 14:10 Dose: 75 mg Timolol Maleate (Timoptic 0.5%) 1 drop OU BID [facility] Last Admin: 05/09/19 13:51 Dose: 1 drop Microbiology 05/03/19 17:07 Blood - Peripheral Venous Blood Culture - Final NO GROWTH AFTER 5 DAYS INCUBATION 05/03/19 17:07 Blood - Peripheral Venous Blood Culture - Final NO GROWTH AFTER 5 DAYS INCUBATION HOSPITAL COURSE: Date of Admission:05/03/19 78 y/o male with a past medical history of HTN, HLD, pacemaker (after cardiac 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 We started pt on colchicine to treat likely gout exacerbation superimposed on cellulitis. We also treated pt with clindamycin for the cellulitis. Pt was seen by podiatry and vascular surgery. Pt was diagnosed with severe peripheral artery disease with severe atherosclerotic SFA block on CT angio requiring angioplasty and stents. After lengthy discussion with pt and family, they preferred to have the surgery done at [facility] by their elevator operator Dr. Calderon/ their own vascular specialist. Dr Beal, who works with Dr. Calderon at [facility] discussed with Dr. Ponce and agreed that the disease did not require emergent treatment and can be followed up outpatient and scheduled as an elective procedure with Dr. Calderon. Pt also had bouts of chest pain while in the hospital and was worked up with a stress test. EKG and trops were negative every time pt had chest pain, and his stress test came back negative with a TID 1.11 and EF at 59% . Pt's BP required medication adjustment so Metoprolol was titrated up from 25 home dose to 50mg daily. Nitroglycerine sublingual, Lyrica for leg pain, Atorvastatin (switched from Zocor), ASA was also added to the regimen. Pt was also sent home on Clindamycin 300 PO for 4 more days to complete his course. Pt was advised to also f/u on his nodule adjacent to his GB seen on Ultrasound. Pt was given referrals to f/u with his primary care, Cj Guerrero, Trimming Department Blocker Dr. Calderon, Dr. Beal. We contacted Dr. Guerrero and informed pt of his status and set up an appt for tomorrow 2 pm. Pt was discharged. EKG- shows new ST elevation only on 1 lead. Otherwise unchanged from baseline. ECHO 04/15/18 Normal LV with mild LVH normal LV fxn EF 60-65%, normal RV size and fxn, mild GRACE mild (peak AV velocity 2.3m/s mean AV gradient 10.1 mmhg), mild MR, TR, CO. Stress test- lexiscan- no evidence of ischemia X ray foot- now osetomylitis Arterial Duplex- significant atherosclerotic disease with HD stenosis of right and left popliteal Artery, further atherosclerotic disease of arteries of the right L CTA- severe atherosclerotic disease involving the SFA of b/l legs. U/S: Liver Nodule adjacent to GB 2.2x1.8cm. Elevated LFTs, improving. No acute findings on Abdo US. For out-patient GI follow up for further Ix, repeat LFTs next week. Date of Discharge: 05/09/19 Minutes to complete discharge: 40 Discharge Summary Problems reviewed: Yes Reason For Visit: GOUT/ CELLULITIS Current Active Problems CAD (coronary artery disease) (Chronic) PAD (peripheral artery disease) (Chronic) S/P CABG (coronary artery bypass graft) (Chronic) Wound, open, foot (Chronic) Condition: Good - Instructions Diet, Activity, Other Instructions: You were seen in the hospital for complaints of a right toe wound. You were found to have a skin infection in your right toe. During your hospital stay, you were seen by the vascular surgeon to evaluate your foot to assess your wound healing. A CT angiogram showed severe atherosclerotic disease in both your lower extremities, left leg greater than the right leg. As a result, the vascular surgeon and you decided to undergo stenting at [facility] by Dr. Solorzano. Your hospital stay was complicated by symptoms of chest pain. As a result, you were seen by the senior ui developer and had a stress test done. Results of your stress test came back normal. Your lab work showed elevated liver enzymes. An abdominal ultrasound was done that showed a nodule adjacent to the gallbladder. You will need to follow up with your Counter Molder to monitor this nodule. Medications We made some changed to your medications, please take the medications as instructed: Please START taking Metoprolol Succinate 50 mg daily. you were taking 25mg before but now you will take 50mg daily. Please START taking Atorvastatin 40 mg daily Please START taking Aspirin daily Please take Lyrica for your leg pain as needed We also started you on Antibiotics for your Toe infection, Please take Clindamycin 300 mg every 6 hours for 4 more days starting tomorrow. Follow Up Please follow up with the GI doctor, Dr. Lopez for outpatient evaluation of the nodule found on imaging. You will need repeat liver function tests done as an outpatient on Monday 05/15. Please follow up with your senior ui developer, Dr. Solorzano, within 1 week to schedule the procedure for your leg. Please follow up with Dr. Richards, the Podiatry doctor for wound care at the wound care clinic. Please follow up with your primary care physician, Dr. Fajardo within 1 week. Return to the emergency room, if you experience worsening of your symptoms, abdominal pain, chest pain, or worsening of any of your condition. Referrals: Lizzy Weaver MD [Staff Physician] - 1 Week Tana Corona MD [Primary Care Provider] - 1 Week Vinny Ponce DO [Staff Physician] - 1 Week Herman Mueller MD [Staff Physician] - 1 Week Cherelle Richards DPM [Staff Physician] - 1 Week Disposition: HOME - Home Medications Comprehensive Discharge Medication List: Ambulatory Orders Cholecalciferol (Vitamin D3) [Vitamin D3] 2,500 unit PO DAILY 05/03/19 Dorzolamide HCl [Trusopt 2% -] 1 drop OU BID 05/03/19 Dorzolamide HCl/Timolol Maleat [Dorzolamide-Timolol Eye Drops] 1 drop OU BID 08/15 Furosemide [Lasix] 20 mg PO DAILY 05/03/19 Latanoprost 1 drop OU HS 05/03/19 Levothyroxine [Synthroid -] 25 mcg PO DAILY 05/03/19 Losartan Potassium 50 mg PO DAILY 05/03/19 Magnesium Oxide,Aspartate,Citr [Triple Magnesium Complex] 400 mg PO HS 05/03/19 Metformin HCl [Glucophage] 500 mg PO DAILY 05/03/19 [place]-3 Acid Ethyl Esters 1 gm PO BID 05/03/19 Ubidecarenone [Co Q-10] 200 mg PO DAILY 05/03/19 Mupirocin Cream [Bactroban 2% Cream -] 1 applic TP BID 05/04/19 [place]-3 Acid Ethyl Esters [Lovaza -] 1 gm PO BID 05/04/19 Aspirin [ASA -] 81 mg PO DAILY #30 tab.chew 05/09/19 Atorvastatin Ca [Lipitor] 40 mg PO HS #30 tablet 05/09/19 Clindamycin [Cleocin -] 300 mg PO Q6H #16 capsule 05/09/19 Metoprolol Succinate [Toprol XL -] 50 mg PO DAILY #30 tab.sr.24h 05/09/19 Nitroglycerin Sublingual [Nitrostat -] 0.4 mg SL Q4H PRN #42 tab 05/09/19 Pregabalin [Lyrica -] 75 mg PO BID #60 capsule MDD 150 05/09/19 This patient is new to me today: Yes Date on this admission: 05/09/19 Emergency Visit: Yes ED Registration Date: 05/03/19 Care time: The patient presented to the Emergency Department on the above date and was hospitalized for further evaluation of their emergent condition. Critical Care patient: No - Discharge Referral Referred to [facility] Med [facility] No ATTENDING PHYSICIAN STATEMENT I saw and evaluated the patient. I reviewed the resident's note and discussed the case with the resident. I agree with the resident's findings and plan as documented. SUBJECTIVE: OBJECTIVE: ASSESSMENT AND PLAN:
[2019-05-09 19:12] VITALS: BP 154/68; PULSE 60; TEMP 97.2
[2019-05-09] MEDS ORDERED: PT OWN MED DRAWER 7, Y5N ONE (21:05)
[2019-05-09] MEDS: ATORVASTATIN CA 40 MG TABLET (FP) PO SCH (21:06)
== END 2019-05-09 21:45 | disposition home health service (06) | DRG 603 ==
LOC: JER 16:24 → JERBED 19:22 → J6S 05-04 16:06 → JERBED 05-07 15:16 → J4S 05-07 15:17
PROVIDERS: ADMIT Internal Medicine
DX: L03.031 Cellulitis of right toe (principal); I50.32 Chronic diastolic (congestive) heart failure; E11.42 Type 2 diabetes mellitus with diabetic polyneuropathy; E11.51 Type 2 diabetes mellitus with diabetic peripheral angiopathy without gangrene; Z95.0 Presence of cardiac pacemaker; E11.621 Type 2 diabetes mellitus with foot ulcer; M10.9 Gout, unspecified; Z86.74 Personal history of sudden cardiac arrest; Z87.891 Personal history of nicotine dependence; Z79.84 Long term (current) use of oral hypoglycemic drugs; E78.5 Hyperlipidemia, unspecified; R07.9 Chest pain, unspecified; I25.10 Atherosclerotic heart disease of native coronary artery without angina pectoris; Z95.1 Presence of aortocoronary bypass graft; K76.9 Liver disease, unspecified; I11.0 Hypertensive heart disease with heart failure; L08.9 Local infection of the skin and subcutaneous tissue, unspecified
CPT/HCPCS: 36415; 71046-TC-FY; 73630-TC-RT-FY; 75635-TC; 76705-TC; 78452-TC; 80048; 80053; 80061; 82248; 82550; 82553; 82962; 83036; 83721; 83735; 84100; 84439; 84443; 84484; 84550; 85025; 85027; 85610; 85651; 86140; 87040; 93005; 93010; 93017; 93925-TC; 97116-GP; 97161-GP; 99285-25; A9502; J0131; J1644; J2785; Q9967

== ENCOUNTER 2021-10-17 10:19 | Observation (INO) | payer OTHER ==
[2021-10-17] MEDS ORDERED: ACETAMINOPHEN 1000 MG/100 ML BAG IVPB ONE (11:22)
[2021-10-17] MEDS ORDERED: ACETAMINOPHEN INJECTION 100 ML IVPB ONE (11:43)
[2021-10-17 12:12] LABS: BASO % 1.2 % (0-2.0); EOS % 2.7 % (0-4.5); HEMATOCRIT 34.9 % (35.4-49); HEMOGLOBIN 11.7 GM/dL (11.7-16.9); LYMPH % 20.2 % (8-40); MCH 30.9 pg (25.7-33.7); MCHC 33.7 g/dl (32.0-35.9); MEAN CELL VOLUME 91.8 fl (80-96); MEAN PLT VOLUME 9.1 fl (7.5-11.1); MONO % 8.9 % (3.8-10.2); PLATELET COUNT 111 10^3/uL (134-434); WHITE BLOOD COUNT 5.2 K/mm3 (4.0-10.0)
[2021-10-17 12:26] LABS: CHLORIDE 104 mmol/L (98-107); SODIUM 139 mmol/L (136-145)
[2021-10-17 12:27] LABS: CALCIUM 8.9 mg/dL (8.5-10.1)
[2021-10-17 12:28] LABS: ALBUMIN 3.6 g/dl (3.4-5.0); ANION GAP 9 MMOL/L (8-16); BLOOD UREA NITROGEN 10.1 mg/dL (7-18); CO2 26 mmol/L (21-32); GLUCOSE,RANDOM 112 mg/dL (74-106)
[2021-10-17 12:31] LABS: CREATININE 0.7 mg/dL (0.55-1.3); SGOT/AST 21 U/L (15-37); SGPT/ALT 26 U/L (13-61)
[2021-10-17 12:33] LABS: BILIRUBIN,TOTAL 0.5 mg/dL (0.2-1); TOT PROT 6.8 g/dl (6.4-8.2)
[2021-10-17 12:34] LABS: ALK PHOS 41 U/L (45-117)
[2021-10-17 21:12] VITALS: BMI 22.3
[2021-10-17] MEDS: OMEGA-3 ACID ETHYL ESTERS (FATTY-ACIDS) 1 GM CAPSULE (FP) PO SCH (21:49)
[2021-10-17] MEDS: ATORVASTATIN CA 40 MG TABLET (FP) PO SCH (21:49)
[2021-10-17] MEDS: LATANOPROST 0.005% OPHTH SOLN 2.5ML BOTTLE OU SCH (21:49)
[2021-10-17] MEDS: DORZOLAMIDE 2% HCL OPHTHALMIC SOLUTION 10 ML BOTTLE OU SCH (21:49)
[2021-10-17] MEDS: GABAPENTIN 100 MG CAPSULE PO SCH (21:49)
[2021-10-17] MEDS: INSULIN SLIDING SCALE (NOVOLOG) 1 VIAL SQ SCH (21:53)
[2021-10-17] MEDS ORDERED: RIVAROXABAN 2.5 MG TABLET PO SCH (22:00)
[2021-10-18] MEDS: LEVOTHYROXINE NA 25 MCG TABLET (FP) PO SCH (06:24)
[2021-10-18] MEDS: INSULIN SLIDING SCALE (NOVOLOG) 1 VIAL SQ SCH ×4 (06:24→22:09)
[2021-10-18 07:30] LABS: HEMATOCRIT 34.8 % (35.4-49); HEMOGLOBIN 11.9 GM/dL (11.7-16.9); MEAN CELL VOLUME 91.2 fl (80-96); MEAN PLT VOLUME 11.8 fl (7.5-11.1); PLATELET COUNT 178 10^3/uL (134-434); RBC 3.82 M/mm3 (4.00-5.60); RDW 13.1 % (11.9-15.9); WHITE BLOOD COUNT 3.9 K/mm3 (4.0-10.0)
[2021-10-18 07:54] LABS: BLOOD UREA NITROGEN 8.9 mg/dL (7-18)
[2021-10-18 07:55] LABS: CHOLESTEROL 124 mg/dL (50-200)
[2021-10-18 07:56] LABS: TRIGLYCERIDES 178 mg/dL (0-150)
[2021-10-18 07:57] LABS: CREATININE 0.7 mg/dL (0.55-1.3); LDL CHOLESTEROL (ONLY SJRH) 56 mg/dL (5-100)
[2021-10-18 07:58] LABS: HDL CHOLESTEROL 54 mg/dL (40-60)
[2021-10-18] MEDS: ASPIRIN 81 MG CHEWABLE TABLETS PO SCH (09:24)
[2021-10-18] MEDS: FAMOTIDINE 20 MG TABLET PO SCH (09:24)
[2021-10-18] MEDS: OMEGA-3 ACID ETHYL ESTERS (FATTY-ACIDS) 1 GM CAPSULE (FP) PO SCH ×2 (09:25→22:08)
[2021-10-18] MEDS: GABAPENTIN 100 MG CAPSULE PO SCH ×2 (09:25→22:09)
[2021-10-18] MEDS: CHOLECALCIFEROL (VIT D3) 1,000 UNIT (25 MCG) TABLET PO SCH (09:26)
[2021-10-18] MEDS: DORZOLAMIDE 2% HCL OPHTHALMIC SOLUTION 10 ML BOTTLE OU SCH ×2 (09:27→22:09)
[2021-10-18] MEDS ORDERED: ENOXAPARIN NA (PORCINE) 40 MG/0.4 ML DISP.SYRIN SQ SCH (10:00)
[2021-10-18] MEDS ORDERED: metoPROLOL SUCCINATE 25 MG TAB.SR.24H (FP) PO SCH (10:00)
[2021-10-18] MEDS ORDERED: LOSARTAN POTASSIUM 50 MG TABLET PO SCH (10:00)
[2021-10-18] MEDS: RIVAROXABAN 2.5 MG TABLET PO SCH ×2 (11:07→23:12)
[2021-10-18] MEDS: CLOTRIMAZOLE 1% CREAM TP SCH ×2 (14:08→22:09)
[2021-10-18] MEDS ORDERED: LOSARTAN POTASSIUM 50 MG TABLET PO ONE (18:15)
[2021-10-18] MEDS: ATORVASTATIN CA 40 MG TABLET (FP) PO SCH (22:08)
[2021-10-18] MEDS: LATANOPROST 0.005% OPHTH SOLN 2.5ML BOTTLE OU SCH (22:09)
[2021-10-19 05:50] VITALS: PULSE 60
[2021-10-19] MEDS: LEVOTHYROXINE NA 25 MCG TABLET (FP) PO SCH (06:13)
[2021-10-19] MEDS: INSULIN SLIDING SCALE (NOVOLOG) 1 VIAL SQ SCH ×2 (06:44→13:40)
[2021-10-19] MEDS: RIVAROXABAN 2.5 MG TABLET PO SCH (09:10)
[2021-10-19] MEDS: GABAPENTIN 100 MG CAPSULE PO SCH (09:10)
[2021-10-19] MEDS: CHOLECALCIFEROL (VIT D3) 1,000 UNIT (25 MCG) TABLET PO SCH (09:10)
[2021-10-19] MEDS: FAMOTIDINE 20 MG TABLET PO SCH (09:10)
[2021-10-19] MEDS: OMEGA-3 ACID ETHYL ESTERS (FATTY-ACIDS) 1 GM CAPSULE (FP) PO SCH (09:10)
[2021-10-19] MEDS: ASPIRIN 81 MG CHEWABLE TABLETS PO SCH (09:11)
[2021-10-19] MEDS: DORZOLAMIDE 2% HCL OPHTHALMIC SOLUTION 10 ML BOTTLE OU SCH (09:12)
[2021-10-19] MEDS: CLOTRIMAZOLE 1% CREAM TP SCH (09:12)
[2021-10-19] MEDS ORDERED: LOSARTAN POTASSIUM 50 MG TABLET PO SCH (10:00)
[2021-10-19 13:44] VITALS: BP 135/62; RESP 19; TEMP 98.3
== END 2021-10-19 15:48 | disposition home or self-care (01) ==
LOC: JER 10:19 → JERBED 13:49 → J4W 20:43
PROVIDERS: ADMIT Internal Medicine; ATTEND Internal Medicine
PROC: 3E033NZ Introduction of Analgesics, Hypnotics, Sedatives into Peripheral Vein, Percutaneous Approach (ICD-10-PCS; principal; 2021-10-17)
DX: I11.0 Hypertensive heart disease with heart failure (principal); I50.9 Heart failure, unspecified; I73.9 Peripheral vascular disease, unspecified; I24.8 Other forms of acute ischemic heart disease; I25.10 Atherosclerotic heart disease of native coronary artery without angina pectoris; I11.9 Hypertensive heart disease without heart failure; Z95.1 Presence of aortocoronary bypass graft; E03.9 Hypothyroidism, unspecified; Z95.0 Presence of cardiac pacemaker; M10.9 Gout, unspecified; E78.5 Hyperlipidemia, unspecified; R07.9 Chest pain, unspecified; V43.52XA Car driver injured in collision with other type car in traffic accident, initial encounter; Y93.89 Activity, other specified; Y92.410 Unspecified street and highway as the place of occurrence of the external cause
CPT/HCPCS: 36415; 70450-TC; 71260-TC; 72125-TC; 72170-TC-FY; 73564-TC-RT-FY; 73590-TC-RT-FY; 80048; 80053; 80061; 82550; 82553; 82962; 83036; 84443; 84484; 85025; 85027; 93005; 93010; 93306-TC; 99285-25; C9803-CS; G0378; Q9967; U0003; U0005